=== PATIENT | male | born 1960 | race Caucasian/White ===

== ENCOUNTER 2016-09-14 03:35 | Inpatient (IN) | payer OTHER ==
[~2016-09-14] VITALS: Ht 180.3 cm; Wt 90.5 kg
[~2016-09-14 03:35] MED LIST: FURO20TA PO; IBUP-1542 PO; LEVE500T8 PO; LORA10TA3 PO
[2016-09-14] MEDS ORDERED: ONDANSETRON 4 MG INJ ONE (04:24)
[2016-09-14 04:34] LABS: BASOPHILS % 0.7 % (0.0-2.0); EOSINOPHILS # 0.1 10^3/ul (0.0-0.5); EOSINOPHILS % 1.6 % (0.0-7.0); HEMATOCRIT 40.1 % (42.0-52.0); HEMOGLOBIN 13.1 g/dl (14.0-18.0); LYMPHOCYTES # 1.8 10^3/ul (0.8-2.9); LYMPHOCYTES % 31.4 % (15.0-51.0); MEAN CORPUSCULAR HEMOGLOBIN 29.5 pg (29.0-33.0); MEAN CORPUSCULAR HGB CONC 32.8 g/dl (32.0-37.0); MEAN CORPUSCULAR VOLUME 90.1 fl (82.0-101.0); MEAN PLATELET VOLUME 8.7 fl (7.4-10.4); MONOCYTE # 0.5 10^3/ul (0.3-0.9); MONOCYTES % 8.8 % (0.0-11.0); NEUTROPHIL # 3.4 10^3/ul (1.6-7.5); NEUTROPHILS % 57.5 % (39.0-77.0); PLATELET COUNT 292 10^3/UL (140-440); RED BLOOD COUNT 4.45 10^6/ul (4.70-6.10); RED CELL DISTRIBUTION WIDTH 16.3 % (11.5-14.5); UNCORRECTED WBC 5.9 10^3/ul (4.8-10.8); WHITE BLOOD COUNT 5.9 10^3/ul (4.8-10.8)
[2016-09-14 04:41] LABS: CONDITION 1; LH ANALYZER COMMENTS 1
[2016-09-14 04:45] LABS: ALBUMIN 3.5 g/dl (3.3-4.9); POTASSIUM 3.4 mmol/L (3.5-5.1)
[2016-09-14 04:48] LABS: ALBUMIN/GLOBULIN RATIO 1.02; BILIRUBIN,INDIRECT 0.7 mg/dl (0-1.1); BILIRUBIN,TOTAL 0.7 mg/dl (0.2-1.3); CALCIUM 8.9 mg/dl (8.4-10.2); CREATININE 0.72 mg/dl (0.61-1.24); TOTAL PROTEIN 6.9 g/dl (6.1-8.1)
--- NOTE | 2016-09-14 04:51 | RADRPT ---
PROCEDURE: CHEST - 1 VIEW CLINICAL INDICATION: 56-year-old male with chest pain. TECHNIQUE: A single frontal AP view of the chest was performed portably. The images were reviewed on a PACS workstation. COMPARISON: Chest x-ray February 01, 2015. FINDINGS: There is a right-sided dual chamber pacemaker. The cardiomediastinal silhouette is moderately enlar ged but without significant interval change. There is mild pulmonary vascular congestion. There is a shallow inspiration. There is mild bibasilar subsegmental atelectasis. There is no evidence for an infiltrate. There is no evidence for pneumothorax. The osseous structures are intact. IMPRESSION: 1. Right-sided dual chamber pacemaker. 2. Cardiomegaly. 3. Mild pulmonary vascular congestion. 4. Shallow inspiration. 5. Mild bibasilar subsegmental atelectasis. .Chevy Horton MD, Date Time Electronically viewed and signed by .Chevy Horton MD, MD on 09/14/2016 04:51 .M/
[2016-09-14 05:00] LABS: TROPONIN-I 0.014 ng/ml (0.00-0.12)
[2016-09-14] MEDS ORDERED: ONDANSETRON 4 MG INJ IV STA (05:00)
[2016-09-14 05:12] LABS: INR 1.09; PROTIME 14.1 Sec (12.2-14.2); PT RATIO 1.1
[2016-09-14 05:13] LABS: PARTIAL THROMBOPLASTIN TIME 33.6 Sec (25.0-35.0)
--- NOTE | 2016-09-14 05:15 | ERA ---
ER Documentation Chief Complaint Date/Time DATE: 09/14/16 TIME: 05:13 Chief Complaint sudden onset CP10/10, 09/28 after ntg x1/asa 324, EMS ekg shows STEMI: HPI This is a 56-year-old male comes in with sudden onset of chest pain 10 out of 10. It went to 1 out of 10 after rescue given 1 sublingual nitro. EMS called with a STEMI P notification. Upon arrival field EKGs were reviewed and were noted not to be ST segment elevation myocardial infarctions. Repeat EKG showed no evidence of STEMI. Patient had chest pain is now 1 out of 10. ROS All systems reviewed and are negative except as per history of present illness. Medications Home Meds Active Scripts Loratadine* (Loratadine*) 10 Mg Tablet, 10 MG PO DAILY for NASAL CONGESTION, # 12 TAB Prov:BALTAZAR SENIOR MD 02/02/16 Ibuprofen* (Motrin*) 600 Mg Tab, 600 MG PO TID for PAIN, #30 TAB Prov:BALTAZAR SENIOR MD 02/02/16 Furosemide* (Lasix*) 20 Mg Tablet, 20 MG PO DAILY, #20 TAB Prov:BALTAZAR SENIOR MD 02/02/16 Reported Medications Levetiracetam* (Levetiracetam*) 500 Mg Tablet, 500 MG PO BID, TAB 07/15/15 Furosemide* (Lasix*) 20 Mg Tablet, 20 MG PO DAILY, TAB 01/31/15 Allergies Allergies: Coded Allergies: Penicillins (Verified Allergy, Mild, 01/07/16) PMhx/Soc History of Surgery: Yes (PACEMAKER) Anesthesia Reaction: No Hx Neurological Disorder: Yes (stroke left sided paralysis) Hx Respiratory Disorders: No Hx Psychiatric Problems: No Hx Miscellaneous Medical Probl: Yes (PARALYZED FROM L WAIST DOWN) Hx Alcohol Use: No Hx Substance Use: No Hx Tobacco Use: No Smoking Status: Unknown if ever smoked Physical Exam Vitals Vital Signs Date Time Temp Pulse Resp B/P Pulse Ox O2 Delivery O2 Flow Rate FiO2 09/14/16 03:55 83 18 135/114 96 Nasal Cannula 2.0 09/14/16 03:41 95.8 77 19 151/115 99 09/14/16 03:40 Nasal Cannula 2 Physical Exam Const: [] Head: Atraumatic Eyes: Normal Conjunctiva ENT: Normal External Ears, Nose and Mouth. Neck: Full range of motion..~ No meningismus. Resp: Clear to auscultation bilaterally Cardio: Regular rate and rhythm, no murmurs Abd: Soft, non tender, non distended. Normal bowel sounds Skin: No petechiae or rashes Back: No midline or flank tenderness Ext: No cyanosis, or edema Neur: Awake and alert Psych: Normal Mood and Affect Result Diagram: 09/14/16 0340 09/14/16 0340 Results 24 hrs Laboratory Tests Test 09/14/16 03:40 Activated Partial Thromboplast Time Pending Alanine Aminotransferase (ALT/SGPT) 35IU/L Albumin 3.5g/dl Albumin/Globulin Ratio 1.02 Alkaline Phosphatase 102IU/L Anion Gap 15 Aspartate Amino Transf (AST/SGOT) 28IU/L B-Type Natriuretic Peptide 2380PG/ML Basophils # 0.010^3/ul Basophils % 0.7% Blood Morphology Comment Blood Urea Nitrogen 9mg/dl Calcium Level 8.9mg/dl Carbon Dioxide Level 28mmol/L Chloride Level 104mmol/L Creatinine 0.72mg/dl Direct Bilirubin 0.00mg/dl Eosinophils # 0.110^3/ul Eosinophils % 1.6% Globulin 3.40g/dl Glucose Level 85mg/dl Hematocrit 40.1% Hemoglobin 13.1g/dl INR International Normalized Ratio 1.09 Indirect Bilirubin 0.7mg/dl Lymphocytes # 1.810^3/ul Lymphocytes % 31.4% Mean Corpuscular Hemoglobin 29.5pg Mean Corpuscular Hemoglobin Concent 32.8g/dl Mean Corpuscular Volume 90.1fl Mean Platelet Volume 8.7fl Monocytes # 0.510^3/ul Monocytes % 8.8% Neutrophils # 3.410^3/ul Neutrophils % 57.5% Nucleated Red Blood Cells # 0.010^3/ul Nucleated Red Blood Cells % 0.0/100WBC Platelet Count 39175^3/UL Potassium Level 3.4mmol/L Prothrombin Time 14.1Sec Prothrombin Time Ratio 1.1 Red Blood Count 4.4510^6/ul Red Cell Distribution Width 16.3% Sodium Level 144mmol/L Total Bilirubin 0.7mg/dl Total Protein 6.9g/dl Troponin I 0.014ng/ml White Blood Count 5.910^3/ul Current Medications Medications (Trade) Dose Ordered Sig/Lindsey Route PRN Reason Start Time Stop Time Status Last Admin Dose Admin Ondansetron HCl (Zofran Inj) 4 mg STK-MED ONCE .ROUTE 09/14/16 04:24 09/14/16 04:25 DC Ondansetron HCl (Zofran Inj) 4 mg ONCE STAT IV 09/14/16 05:00 09/14/16 05:03 DC 09/14/16 04:25 Procedures/MDM EKG: Rate/Rhythm: Normal Sinus Rhythm QRS, ST, T-waves: No changes consistent w/ acute ischemia Impression: No evidence of ischemia or arrhythmia Chest X-ray 1V Interpreted by me: Soft Tissue: No acute abnormalities Bones: No acute abnormalities Mediastinum/Cardiac Silhouette/Lungs: Pulmonary edema Patient's symptoms are concerning for cardiac cause will require inpatient workup and continuous monitoring. Further w/u for ischemia, arrhythmia, PE or dissection will be deferred to the inpatient team. Accepting Care Team: Current data and ongoing care discussed. Time: 5:15 AM Primary Provider: Hospitalist Consulting: [XOXOXO] Outstanding Data: none Departure Diagnosis: Primary Impression: Chest pain Qualified Code: I20.9 - Ischemic chest pain Condition: Serious BONIFACIO PEREZ Sep 14, 2016 05:15
[2016-09-14] MEDS ORDERED: FUROSEMIDE 40 MG INJ IV ONE (05:30)
[2016-09-14] MEDS ORDERED: DICLOFENAC SODIUM 37.5 MG/ML VIAL IV STA (05:46)
[2016-09-14] MEDS ORDERED: POTA20LI5 PO (06:43)
[2016-09-14] MEDS ORDERED: WARF2.5T PO (06:43)
[2016-09-14] MEDS ORDERED: DILT120C79 PO (06:45)
[2016-09-14] MEDS ORDERED: LOSA25TA5 PO (06:46)
[2016-09-14] MEDS ORDERED: HYDROCODONE/APAP (5/325) TAB PO PRN (08:00)
[2016-09-14] MEDS ORDERED: ONDANSETRON 4 MG INJ IV PRN (08:00)
[2016-09-14] MEDS ORDERED: DILTIAZEM (CD) 180 MG CAP PO SCH (09:00)
[2016-09-14] MEDS ORDERED: POTASSIUM CHLORIDE 250 ML IVPB ONE (09:00)
[2016-09-14] MEDS: LOSARTAN 25 MG TAB PO SCH (09:39)
[2016-09-14] MEDS: DOCUSATE SODIUM 100 MG CAP PO SCH ×2 (09:40→22:28)
[2016-09-14] MEDS: LEVETIRACETAM 500 MG TAB PO SCH ×2 (09:40→22:28)
[2016-09-14] MEDS: FUROSEMIDE 20 MG INJ IV SCH (09:40)
[2016-09-14] MEDS: POTASSIUM CHLORIDE (SR) 20 MEQ TAB PO SCH (09:41)
[2016-09-14 11:12] LABS: ALBUMIN 3.6 g/dl (3.3-4.9)
[2016-09-14 11:15] LABS: BILIRUBIN,INDIRECT 0.9 mg/dl (0-1.1); BILIRUBIN,TOTAL 0.9 mg/dl (0.2-1.3); MAGNESIUM 1.9 mg/dl (1.7-2.5); TOTAL PROTEIN 6.8 g/dl (6.1-8.1)
[2016-09-14 11:30] LABS: CK-MB 27.1 ng/ml (0.0-2.4)
[2016-09-14 11:31] LABS: TROPONIN-I 1.09 ng/ml (0.00-0.12)
[2016-09-14 15:35] LABS: THYROID STIMULATING HORMONE 3.92 MIU/L (0.465-4.680)
[2016-09-14] MEDS ORDERED: ASPIRIN 325 MG TAB PO ONE (16:00)
--- NOTE | 2016-09-14 16:24 | CONS ---
Date/Time of Note Date/Time of Note DATE: 09/14/16 TIME: 16:02 Assessment/Plan Assessment/Plan Additional Assessment/Plan Elevated troponin concerning for non-ST elevation WA History of congestive heart failure, currently compensated Cardiomyopathy Atrial fibrillation, noncompliant with anticoagulation CVA with left hemiparesis -Patient with symptoms of chest discomfort yesterday evening after dinner. He denies further chest pain. Troponins are elevated. This was discussed with the patient in detail and he tells me he had a recent cardiac catheterization done earlier this year. Extensive discussion was had with the patient regarding benefits and risks of coronary angiogram and patient is currently refusing any invasive procedures. I will request records from [facility] regarding recent coronary angiogram, will start aspirin therapy, statin therapy, beta iraida, check echocardiogram, Lovenox in the interim. Consultation Date/Type/Reason Admit Date/Time Type of Consultation: cv Reason for Consultation Chest pain Hx of Present Illness This is a 56-year-old male with past medical history of congestive heart failure , hypertension, CVA with left hemiparesis, atrial fibrillation who presents with chest pain last night. Patient states after eating spicy food, he developed burning-like sensation in his chest and throat. There was no shortness of breath, dizziness or lightheadedness. After taking soda today, his chest pain has since resolved. He denies any further symptoms. He does admit to poor medication and diet compliance. Patient was homeless but recently given a place to stay but does admit to noncompliance with medications and diet. He does admit to drug use but does not remember the last time he used. He has used cocaine, methamphetamines and marijuana in the past. Given his CVA and left hemiparesis, he does not ambulate but gets around with able chair. He denies exertional chest pain or shortness of breath. Tells me he did have a cardiac catheterization done earlier this year at [facility]. He was told there were no blockages but he had large arteries. 12 point review of systems was performed with all pertinent positives and negatives mentioned above and all else is negative Past Medical History Congestive heart failure Atrial fibrillation CVA with left hemiparesis Past Surgical History Pacemaker Family History Significant Family History: no pertinent family hx Social History Alcohol Use: occasionally Smoking Status: Unknown if ever smoked Drug Use: other (history of methamphetamine, crack and marijuana use) Exam/Review of Systems Vital Signs Vitals Vital Signs Date Time Temp Pulse Resp B/P Pulse Ox O2 Delivery O2 Flow Rate FiO2 09/14/16 13:50 20 133/99 99 Nasal Cannula 2.0 09/14/16 09:38 93 09/14/16 03:41 95.8 Exam Constitutional: alert, oriented Head: normocephalic Neck: supple Respiratory: other (course breath sounds bilaterally, no wheezing) Cardiovascular: irregular rhythm, other (S1-S2 heard) Gastrointestinal: bowel sounds, non-tender, other (no guarding), soft Extremities: edema (trace left lower extremity), other (contracture of left upper extremity) Results Result Diagram: 09/14/16 0340 09/14/16 0340 Results 24 hrs Laboratory Tests Test 09/14/16 03:40 09/14/16 09:57 Activated Partial Thromboplast Time 33.6 Alanine Aminotransferase (ALT/SGPT) 35 33 Albumin 3.5 3.6 Albumin/Globulin Ratio 1.02 Alkaline Phosphatase 102 98 Anion Gap 15 Aspartate Amino Transf (AST/SGOT) 28 60 #H B-Type Natriuretic Peptide 2380 H Basophils # 0.0 Basophils % 0.7 Blood Morphology Comment Blood Urea Nitrogen 9 Calcium Level 8.9 Carbon Dioxide Level 28 Chloride Level 104 Creatinine 0.72 Direct Bilirubin 0.00 0.00 Eosinophils # 0.1 Eosinophils % 1.6 Globulin 3.40 H Glucose Level 85 Hematocrit 40.1 L Hemoglobin 13.1 L INR International Normalized Ratio 1.09 Indirect Bilirubin 0.7 0.9 Lymphocytes # 1.8 Lymphocytes % 31.4 Mean Corpuscular Hemoglobin 29.5 Mean Corpuscular Hemoglobin Concent 32.8 Mean Corpuscular Volume 90.1 Mean Platelet Volume 8.7 Monocytes # 0.5 Monocytes % 8.8 Neutrophils # 3.4 Neutrophils % 57.5 Nucleated Red Blood Cells # 0.0 Nucleated Red Blood Cells % 0.0 Platelet Count 292 # Potassium Level 3.4 L Prothrombin Time 14.1 Prothrombin Time Ratio 1.1 Red Blood Count 4.45 L Red Cell Distribution Width 16.3 #H Sodium Level 144 Total Bilirubin 0.7 0.9 Total Protein 6.9 6.8 Troponin I 0.014 1.090 *H White Blood Count 5.9 Cholesterol Level 140 Cholesterol/HDL Ratio 4.0 Creatine Kinase 174 Creatine Kinase Index 15.6 Creatinine Kinase MB (Mass) 27.10 H HDL Cholesterol 35 LDL Cholesterol, Calculated 96 Magnesium Level 1.9 Thyroid Stimulating Hormone (TSH) 3.920 Triglycerides Level 47 Medications Medications Current Medications Levetiracetam (Keppra) 500 mg BID PO Last administered on 09/14/16 09:40; Admin Dose 500 MG; Start 09/14/16 at 09:00 Potassium Chloride (Klor-Con 20) 20 meq DAILY PO Last administered on 09:41; Admin Dose 20 MEQ; Start 09/14/16 at 09:00 Diltiazem HCl (Cardizem Cd) 180 mg DAILY PO Last administered on 09/14/16 09: 40; Admin Dose 180 MG; Start 09/14/16 at 09:00 Losartan Potassium (Cozaar) 25 mg DAILY PO Last administered on 09/14/16 09: 39; Admin Dose 25 MG; Start 09/14/16 at 09:00 Furosemide (Lasix) 20 mg DAILY IV Last administered on 09/14/16 09:40; Admin Dose 20 MG; Start 09/14/16 at 09:00 Docusate Sodium (Colace) 100 mg BID PO Last administered on 09/14/16 09:40; Admin Dose 100 MG; Start 09/14/16 at 09:00 Ondansetron HCl (Zofran Inj) 4 mg Q6H PRN IV NAUSEA AND/OR VOMITING; Start at 08:00 Acetaminophen/ Hydrocodone Bitart ([place] (5/325)) 1 tab Q6H PRN PO pain; Start 09/14/16 at 08:00 Procedures Procedures ECG demonstrates atrial fibrillation at 87 bpm, right bundle branch block with QRS 166 ms, nonspecific STT wave abnormalities Louis Montalvo DO Sep 14, 2016 16:13
--- NOTE | 2016-09-14 16:50 | RADRPT ---
Echocardiogram Report Patient Name: BALTAZAR HENRIQUEZ Gender: Male Date: 1960 Study Date: 14-Sep-2016 [place] Dyer: Bobbi Correia RDCS Location: [facility] Ref. Physician: JEAN-PAUL ZAMUDIO Quality: Adequate Procedures: Transthoracic echocardiogram with complete 2D, M-Mode, and doppler examination. Indications: Congestive Heart Failure. 2D/M Mode Doppler Measurement Value Normal Ranges Measurement Value Normal Ranges LVIDd 2D 6.1 3.5 - 5.6 cm AV Peak Kevin 1.1 m/sec LVIDs 2D 4.8 2.1 - 4.1 cm AV Peak PG 5.0 mmHg FS 2D 21.5 % AI Peak PG 74.0 mmHg LVPWd 2D 1.2 0.6 - 1.1 cm AI Peak Kevin 4.3 m/sec IVSd 2D 1.2 0.6 - 1.1 cm AI PHT 518.0 msec IVS/LVPW 2D 1.0 LVOT Peak Kevin 0.7 m/sec AoR Diam 2D 3.1 2.0 - 3.7 cm LVOT Peak PG 2.0 mmHg LA/Ao 2D 2 0 - 1 MV E Peak Kevin 1.1 m/sec EDV 2D 223.0 cm3 MV Decel Time 92 msec ESV 2D 108.0 cm3 TR Peak Kevin 3.5 m/sec LA Dimen 2D 5.8 2.3 - 4.0 cm TR Peak PG 48.0 mmHg RVSP 63.0 mmHg Findings Left Ventricle: Mild concentric left ventricular hypertrophy. Mild enlargement of left ventricle cavity. Severe left ventricular systolic dysfunction. Ejection fraction is visually estimated at 30 %. Abnormal Diastolic Function. Right Ventricle: Mild enlargement of right ventricle. Mild right ventricular hypokinesis. Pacemaker right heart. Left Atrium: There is severe enlargement of left atrium. LA Dimension5.80 cm. Right Atrium: There is severe enlargement of right atrium. Mitral Valve: Mitral valve leaflets appear mildly thickened. Mild mitral annular calcification. Moderate mitral valve regurgitation. The regurgitation jet is eccentrically directed which may underestimate the severity of mitral regurgitation. Aortic Valve: No hemodynamically significant aortic stenosis by doppler. Aortic cusps appear mildly calcified. Trace aortic valve regurgitation. Tricuspid Valve: Normal appearance of the tricuspid valve. Estimated peak PA systolic pressure 63 mmHg. There is moderate tricuspid regurgitation. Pulmonic Valve: Normal pulmonic valve appearance. Pericardium: Normal pericardium with no significant pericardial effusion. Aorta: Normal aortic root. IVC: Dilated inferior vena cava with poor inspiratory collapse consistent with elevated right atrial pressures. Pulmonary Artery: Normal pulmonary artery size. Conclusions 1.Mild concentric left ventricular hypertrophy. Mild enlargement of left ventricle cavity. Severe left ventricular systolic dysfunction. Ejection fraction is visually estimated at 30 %. Abnormal Diastolic Function. 2.Mild enlargement of right ventricle. Mild right ventricular hypokinesis. Pacemaker right heart. 3.There is severe enlargement of left atrium. 4.There is severe enlargement of right atrium. 5.Moderate mitral valve regurgitation. The regurgitation jet is eccentrically directed which may underestimate the severity of mitral regurgitation. 6.Estimated peak PA systolic pressure 63 mmHg. There is moderate tricuspid regurgitation. 7.No hemodynamically significant aortic stenosis by doppler. Trace aortic valve regurgitation. 8.Normal pericardium with no significant pericardial effusion. Electronically Signed By: Louis Montalvo 14-Sep-2016 16:50:41 -0800 Patient Name: BALTAZAR HENRIQUEZ Study Date: 14-Sep-2016 [id number]
[2016-09-14] MEDS ORDERED: WARFARIN 2.5 MG TAB PO SCH (17:00)
[2016-09-14 17:04] LABS: CK-MB 78.9 ng/ml (0.0-2.4)
[2016-09-14 17:11] LABS: TROPONIN-I 5.78 ng/ml (0.00-0.12)
--- NOTE | 2016-09-14 17:16 | HP ---
DATE OF ADMISSION: 09/14/2016 MATCH MARKER: Dr. Louis Montalvo, dowel inserting machine operator. CHIEF COMPLAINT: Chest pain. HISTORY OF PRESENT ILLNESS: This is a very pleasant 56-year-old gentleman with past medical history of hypertension, dyslipidemia, CVA with left-sided residual, seizure, atrial fibrillation who prese nts to [facility] this morning on 09/14/2016 secondary to complaint of having ches t discomfort. The chest pain was left-sided, radiating to his left upper extremity, not accompanied with any shortness of breath or any other discomfort. The patient denies any recent travel history . No sick contact. The pain was sudden onset, 10/10. He took 1 sublingual nitroglycerin. EMS was called. STEMI was found on the EKG, although upon arrival to the field, EKG was reviewed, and were not noted to be ST segment elevation myocardial infarction per dowel inserting machine operator. The chest pain improv ed significantly status post aspirin and nitroglycerin. The patient's first troponin was found to b e 0.14 and increased to 1.090. The patient was seen and evaluated in the course of emergency room b y the dowel inserting machine operator and elevated troponin was discussed with the patient in detail, although he state s that he had a recent cardiac catheterization done earlier this year. An extensive discussion was done by cardiology regarding benefits and risks of coronary angiogram. The patient at this time is refusing current invasive procedure. The patient has been started on aspirin, statin, beta-iraida. An echocardiogram has been ordered. At this time, the patient denies any chest pain, shortness of breath, nausea, vomiting, diarrhea. No headache, dizziness, lightheadedness. No change in visual acuity, diplopia, photophobia. No abdominal pain, no other discomfort except what was stated above. PAST MEDICAL AND SURGICAL HISTORY: As above per HPI. MEDICATIONS: 1. Diltiazem. 2. Lasix. 3. Keppra. 4. Losartan. 5. Potassium chloride. 6. Warfarin. ALLERGIES: PENICILLIN. SOCIAL HISTORY: History of smoking, he has quit. No alcohol, no illicit drugs. He lives alone. H e is not dependent to others for his daily activity. FAMILY HISTORY: Positive for hypertension, dyslipidemia. REVIEW OF SYSTEMS: As above per HPI, otherwise 12 review of systems was found to be negative. PHYSICAL EXAMINATION: VITAL SIGNS: Temperature 98.5, pulse 93, respirations 20, blood pressure 133/99, oxygen 99% in room air. GENERAL APPEARANCE: The patient is lying in bed comfortably without any distress. He is awake, alla rt, oriented. He is able to answer my questions properly. EYES AND EARS, NOSE, THROAT: Conjunctivae and lids are normal. Pupils are normal. Extraocular nor mal. Hearing grossly normal. Lips are normal. Oral mucosa is mildly dry. NECK: Supple. Trachea is midline. No lymphadenopathy. RESPIRATORY: Effort is normal. Clear to auscultation bilaterally. CARDIOVASCULAR: Normal S1, S2. Regular rhythm and rate. No murmur, no bruits, no edema. Peripher al pulses, radial pulses palpable. Cap refill is normal. CHEST: Normal expansion of thorax during inspiration. GASTROINTESTINAL: Abdomen is soft, nontender, not distended. Bowel sounds present. No guarding, n o rebound. GENITOURINARY: Deferred. MUSCULOSKELETAL: Left upper extremity at the wrist is flexed secondary to his history of CVA. Left lower extremity is weaker than right. Otherwise, no other deformity is noted. No edema. NEUROLOGIC: Cranial nerves II through XII are grossly intact. PSYCHIATRIC: Normal judgment and insight. Alert and oriented x3. Mood and affect is normal. LABORATORY WORK AND IMAGING: Sodium 144, potassium 3.4, chloride 104, bicarbonate 28, BUN 9, creati nine 0.72, glucose 85, calcium 8.9, magnesium 1.9. LFTs are within normal limits except AST 60. Tr oponin 0.014 and 1.090. BNP 2380. Triglyceride 47, total cholesterol 140, LDL 96, HDL 35. TSH 3.9 2. WBC 5.9, hemoglobin 13.1, hematocrit 41.0, platelet 292. EKG demonstrated atrial fibrillation, ventricular rate of 87, right bundle branch block with QRS, nonspecific ST-T wave abnormality. ASSESSMENT AND PLAN: 1. Non-ST myocardial infarction. Troponin 1.03. Cardiology has been consulted. Obtain a 2D echoc ardiogram. The patient has been placed on aspirin, warfarin. Will place the patient on Lipitor, Lo venox, metoprolol. Follow up serial troponin. At this time, as stated above, the patient has refus ed any cardiac procedure. 2. Essential hypertension, well controlled on medical management. 3. History of cerebrovascular accident. Continue aspirin. Place the patient on statin. Continue to monitor patient's blood pressure. 4. History of atrial fibrillation. Continue Lopressor. The patient has been placed on Lovenox. A t this time, we will hold warfarin. 5. Seizure disorder. No acute event. Continue Keppra. 6. Congestive heart failure. Continue Lasix, Losartan. Seems compensated. Follow up 2D echocardi ogram. 7. For deep venous thrombosis prophylaxis, on Lovenox. 8. For gastrointestinal prophylaxis, we will place the patient on Protonix. 9. We will continue to monitor patient closely. Further recommendations, management, and treatment as per clinical course. Total amount of time was spent for evaluation of patient and admission workup 45 minutes. Dictated By: AVERY CAMPO MD PN/NTS Conf#: [id number] DID#: [id number] CC: ____ [facility];*EndCC*
[2016-09-14] MEDS ORDERED: ENOXAPARIN 80 MG/0.8 ML SYG SC ONE (19:30)
[2016-09-14] MEDS: METOPROLOL 25 MG TAB PO SCH (21:00)
[2016-09-14] MEDS ORDERED: ENOXAPARIN 80 MG/0.8 ML SYG SC SCH (21:00)
[2016-09-14 21:08] VITALS: PULSE 76
[2016-09-14] MEDS: ATORVASTATIN 40 MG TAB PO SCH (22:26)
[2016-09-14 22:27] LABS: TROPONIN-I 11.7 ng/ml (0.00-0.12)
[2016-09-14 23:10] VITALS: BP 115/98; RESP 18
[2016-09-14 23:15] VITALS: Ht 180.3 cm; Wt 90.5 kg
[2016-09-14 23:48] VITALS: PULSE 103
[2016-09-15] VITALS (40 sets, daily range): BP systolic 85–130; BP diastolic 61–103; PULSE 60–78; RESP 14–23
[2016-09-15] MEDS: PANTOPRAZOLE (EC) 40 MG TAB PO SCH (06:31)
[2016-09-15 08:47] LABS: BARBITURATES NEGATIVE (NEGATIVE); BENZODIAZEPINES NEGATIVE (NEGATIVE)
[2016-09-15 08:48] LABS: CANNABINOIDS NEGATIVE (NEGATIVE); COCAINE NEGATIVE (NEGATIVE); OPIATES NEGATIVE (NEGATIVE)
[2016-09-15] MEDS: FUROSEMIDE 20 MG INJ IV SCH (09:00)
[2016-09-15] MEDS: LOSARTAN 25 MG TAB PO SCH (09:00)
[2016-09-15] MEDS: METOPROLOL 25 MG TAB PO SCH (09:00)
[2016-09-15] MEDS ORDERED: AL HYDROX/MG HYDROX/SIMETH 30 ML CUP PO PRN (10:00)
[2016-09-15] MEDS: POTASSIUM CHLORIDE (SR) 20 MEQ TAB PO SCH (10:08)
[2016-09-15] MEDS: ASPIRIN 81 MG TAB PO SCH (10:08)
[2016-09-15] MEDS: DOCUSATE SODIUM 100 MG CAP PO SCH (10:08)
[2016-09-15] MEDS: LEVETIRACETAM 500 MG TAB PO SCH (10:08)
--- NOTE | 2016-09-15 11:59 | PN ---
Date/Time of Note Date/Time of Note DATE: 09/15/16 TIME: 11:50 Assessment/Plan VTE Prophylaxis VTE Prophylaxis Intervention: LMWH Lines/Catheters IV Catheter Type (from [facility]): [place] Assessment/Plan Chief Complaint/Hosp Course ASSESSMENT AND PLAN: 1. Non-ST myocardial infarction. Cardiology has been consulted. 2D echocardiogram demonstrated ejection fraction of 30% with diastolic dysfunction. The patient has been placed on aspirin, Lovenox and Lipitor. Metoprolol has been placed on hold secondary to hypotension. serial troponin has been trending up. At this time, as stated above, the patient has refused any cardiac procedure such as left heart catheterization and PCI. 2. Essential hypertension, at this time patient is hypotensive, we will place parameters for blood pressure medications 3. History of cerebrovascular accident. Continue aspirin and statin. Continue to monitor patient's blood pressure. 4. History of atrial fibrillation. Hold Lopressor. Status post Lovenox. At this time, we will hold warfarin. 5. Seizure disorder. No acute event. Continue Keppra. 6. Congestive heart failure. 2D echocardiogram with ejection fraction 30%, losartan and Lasix with caution secondary to hypotension. 7. For deep venous thrombosis prophylaxis, on Lovenox. 8. For gastrointestinal prophylaxis, we will place the patient on Protonix. . We will continue to monitor patient closely. Further recommendations, management, and treatment as per clinical course. Patient has decided to change his CODE STATUS to DNR. Nurse was witnessed during the process At this time patient has refused any cardiac interventions such as left heart cath or PCI, will continue aggressive medical management and follow cardiology recommendations Problems: Subjective 24 Hr Interval Summary Free Text/Dictation Patient complains of having abdominal discomfort this morning which has resolved Denies of any chest pain or shortness of breath Yesterday evening upon evaluation of troponin patient had refused left heart catheterization despite of cardiology recommendations This morning also patient has refused left heart catheterization and at this time he stating that he would not like to proceed with PCI NPO for possible left heart catheterization Exam/Review of Systems Vital Signs Vitals Vital Signs Date Time Temp Pulse Resp B/P Pulse Ox O2 Delivery O2 Flow Rate FiO2 09/15/16 09:25 61 09/15/16 07:35 97.9 20 85/61 98 09/14/16 16:00 Nasal Cannula 2.0 Intake and Output 09/14/16 09/14/16 09/15/16 15:00 23:00 07:00 Intake Total 500 ml Output Total 1300 ml 300 ml Balance -1300 ml 200 ml Exam General: The patient is well-developed, Not in acute distress. HEENT: Atraumatic, normocephalic. The pupils are equal and round . Neck: Supple with full range of motion. Chest: Normal expansion of the thorax during inspiration Lungs: Clear to auscultation bilaterally Heart: Normal S1-S2, Regular rhythm and rate. Abdomen: Soft , nontender, nondistended , bowel sounds are present. Extremities: Left hand flexion/deformity, left upper and lower extremity weakness 3/5 (chronic) , no edema no cyanosis Neurologic: Normal mental status,The patient is awake, alert and oriented . Results Result Diagram: 09/14/16 0340 09/14/16 0340 Results 24 hrs Laboratory Tests Test 09/14/16 16:20 09/14/16 21:44 09/15/16 06:30 Creatine Kinase 507 #H 655 H Creatine Kinase Index 15.6 14.7 Creatinine Kinase MB (Mass) 78.90 H 96.00 H Troponin I 5.780 *H 11.700 *H Urine Amphetamines Screen POSITIVE Urine Barbiturates NEGATIVE Urine Benzodiazepines Screen NEGATIVE Urine Cannabinoids NEGATIVE Urine Cocaine Screen NEGATIVE Urine Opiates Screen NEGATIVE Medications Medications Current Medications Levetiracetam (Keppra) 500 mg BID PO Last administered on 09/15/16at 10:08; Admin Dose 500 MG; Start 09/14/16 at 09:00 Potassium Chloride (Klor-Con 20) 20 meq DAILY PO Last administered on at 10:08; Admin Dose 20 MEQ; Start 09/14/16 at 09:00 Losartan Potassium (Cozaar) 25 mg DAILY PO Last administered on 09/14/16at 09: 39; Admin Dose 25 MG; Start 09/14/16 at 09:00 Furosemide (Lasix) 20 mg DAILY IV Last administered on 09/14/16at 09:40; Admin Dose 20 MG; Start 09/14/16 at 09:00 Docusate Sodium (Colace) 100 mg BID PO Last administered on 09/15/16at 10:08; Admin Dose 100 MG; Start 09/14/16 at 09:00 Ondansetron HCl (Zofran Inj) 4 mg Q6H PRN IV NAUSEA AND/OR VOMITING; Start at 08:00 Acetaminophen/ Hydrocodone Bitart ([place] (5/325)) 1 tab Q6H PRN PO pain; Start 09/14/16 at 08:00 Atorvastatin Calcium (Lipitor) 40 mg HS PO Last administered on 09/14/16at 22: 26; Admin Dose 40 MG; Start 09/14/16 at 21:00 Aspirin (Aspirin) 81 mg DAILY PO Last administered on 09/15/16at 10:08; Admin Dose 81 MG; Start 09/15/16 at 09:00 Metoprolol Tartrate (Lopressor) 25 mg BID PO Last administered on 09/14/16 21 :00; Admin Dose 25 MG; Start 09/14/16 at 21:00 Pantoprazole (Protonix Tab) 40 mg DAILY@06 PO Last administered on 09/15/16 06:31; Admin Dose 40 MG; Start 09/15/16 at 06:00 Al Hydrox/Mg Hydrox/Simethicone (Mag-Al Plus) 30 ml Q6H PRN PO GASTROINTESTINAL UPSET Last administered on 09/15/16at 10:07; Admin Dose 30 ML; Start 09/15/16 at 10:00 AVERY CAMPO MD Sep 15, 2016 11:59
[2016-09-15 12:14] LABS: BASOPHILS % 0.5 % (0.0-2.0); EOSINOPHILS # 0.1 10^3/ul (0.0-0.5); EOSINOPHILS % 1.1 % (0.0-7.0); HEMATOCRIT 38.6 % (42.0-52.0); HEMOGLOBIN 12.6 g/dl (14.0-18.0); LYMPHOCYTES # 1.1 10^3/ul (0.8-2.9); LYMPHOCYTES % 17.6 % (15.0-51.0); MEAN CORPUSCULAR HEMOGLOBIN 29.6 pg (29.0-33.0); MEAN CORPUSCULAR HGB CONC 32.8 g/dl (32.0-37.0); MEAN CORPUSCULAR VOLUME 90.2 fl (82.0-101.0); MEAN PLATELET VOLUME 8.3 fl (7.4-10.4); MONOCYTE # 0.6 10^3/ul (0.3-0.9); MONOCYTES % 9.7 % (0.0-11.0); NEUTROPHIL # 4.5 10^3/ul (1.6-7.5); NEUTROPHILS % 71.1 % (39.0-77.0); PLATELET COUNT 271 10^3/UL (140-440); RED BLOOD COUNT 4.28 10^6/ul (4.70-6.10); RED CELL DISTRIBUTION WIDTH 16.4 % (11.5-14.5); UNCORRECTED WBC 6.4 10^3/ul (4.8-10.8); WHITE BLOOD COUNT 6.4 10^3/ul (4.8-10.8)
[2016-09-15 12:19] LABS: CONDITION 1; LH ANALYZER COMMENTS 1
[2016-09-15 12:22] LABS: POTASSIUM 3.8 mmol/L (3.5-5.1)
[2016-09-15 12:24] LABS: CREATININE 0.79 mg/dl (0.61-1.24)
[2016-09-15 12:26] LABS: CALCIUM 8.8 mg/dl (8.4-10.2)
[2016-09-15 12:39] LABS: TROPONIN-I 33.9 ng/ml (0.00-0.12)
--- NOTE | 2016-09-15 12:56 | CONS ---
Date/Time of Note Date/Time of Note DATE: 09/15/16 TIME: 12:51 Assessment/Plan Assessment/Plan Additional Assessment/Plan Non-ST elevation CT History of congestive heart failure, currently compensated Cardiomyopathy with ejection fraction 30% Atrial fibrillation, noncompliant with anticoagulation History of CVA with left hemiparesis Methamphetamine use -I have had multiple conversations with her patient regarding his cardiac disease. Initially patient was refusing cardiac catheterization, troponins continue to trend up, he agreed last night for cardiac catheterization and he was scheduled for 7:30 this morning and then refused prior to the procedure. Troponins continue to trend upwards. Once again, this was discussed with the patient and he currently agrees to proceed with cardiac catheterization. Continue aspirin, statin therapy and beta iraida as blood pressure and heart rate permits. Further recommendations will be forthcoming as more information is available. Consultation Date/Type/Reason Admit Date/Time Sep 14, 2016 at 05:16 Initial Consult Date Type of Consultation: cv 24 HR Interval Summary Free Text/Dictation Patient with intermittent "indigestion" overnight. Currently denies chest pain or shortness of breath Exam/Review of Systems Vital Signs Vitals Vital Signs Date Time Temp Pulse Resp B/P Pulse Ox O2 Delivery O2 Flow Rate FiO2 09/15/16 12:28 60 09/15/16 12:12 97.8 20 101/65 98 09/14/16 16:00 Nasal Cannula 2.0 Intake and Output 09/14/16 09/14/16 09/15/16 15:00 23:00 07:00 Intake Total 500 ml Output Total 1300 ml 300 ml Balance -1300 ml 200 ml Exam No apparent distress, follows commands Constitutional: alert, oriented Head: normocephalic Neck: supple Respiratory: other (course breath sounds bilaterally, no wheezing) Cardiovascular: irregular rhythm, other (S1-S2 heard), systolic murmur Gastrointestinal: bowel sounds, non-tender, other (no guarding), soft Extremities: other (contracture of left arm, trace edema left lower extremity) Results Result Diagram: 09/15/16 1150 09/15/16 1150 Results 24 hrs Laboratory Tests Test 09/14/16 16:20 09/14/16 21:44 09/15/16 06:30 09/15/16 11:50 Creatine Kinase 507 #H 655 H 598 H Creatine Kinase Index 15.6 14.7 11.5 Creatinine Kinase MB (Mass) 78.90 H 96.00 H 69.00 H Troponin I 5.780 *H 11.700 *H 33.900 *H Urine Amphetamines Screen POSITIVE Urine Barbiturates NEGATIVE Urine Benzodiazepines Screen NEGATIVE Urine Cannabinoids NEGATIVE Urine Cocaine Screen NEGATIVE Urine Opiates Screen NEGATIVE Anion Gap 13 Basophils # 0.0 Basophils % 0.5 Blood Morphology Comment Blood Urea Nitrogen 10 Calcium Level 8.8 Carbon Dioxide Level 31 Chloride Level 100 Creatinine 0.79 Eosinophils # 0.1 Eosinophils % 1.1 Glucose Level 82 Hematocrit 38.6 L Hemoglobin 12.6 L Lymphocytes # 1.1 Lymphocytes % 17.6 Mean Corpuscular Hemoglobin 29.6 Mean Corpuscular Hemoglobin Concent 32.8 Mean Corpuscular Volume 90.2 Mean Platelet Volume 8.3 Monocytes # 0.6 Monocytes % 9.7 Neutrophils # 4.5 Neutrophils % 71.1 Nucleated Red Blood Cells # 0.0 Nucleated Red Blood Cells % 0.0 Platelet Count 271 Potassium Level 3.8 Red Blood Count 4.28 L Red Cell Distribution Width 16.4 H Sodium Level 140 White Blood Count 6.4 Medications Medications Current Medications Levetiracetam (Keppra) 500 mg BID PO Last administered on 09/15/16 10:08; Admin Dose 500 MG; Start 09/14/16 at 09:00 Potassium Chloride (Klor-Con 20) 20 meq DAILY PO Last administered on 10:08; Admin Dose 20 MEQ; Start 09/14/16 at 09:00 Losartan Potassium (Cozaar) 25 mg DAILY PO Last administered on 09/14/16 09: 39; Admin Dose 25 MG; Start 09/14/16 at 09:00 Furosemide (Lasix) 20 mg DAILY IV Last administered on 09/14/16 09:40; Admin Dose 20 MG; Start 09/14/16 at 09:00 Docusate Sodium (Colace) 100 mg BID PO Last administered on 09/15/16 10:08; Admin Dose 100 MG; Start 09/14/16 at 09:00 Ondansetron HCl (Zofran Inj) 4 mg Q6H PRN IV NAUSEA AND/OR VOMITING; Start at 08:00 Acetaminophen/ Hydrocodone Bitart ([place] (5/325)) 1 tab Q6H PRN PO pain; Start 09/14/16 at 08:00 Atorvastatin Calcium (Lipitor) 40 mg HS PO Last administered on 09/14/16 22: 26; Admin Dose 40 MG; Start 09/14/16 at 21:00 Aspirin (Aspirin) 81 mg DAILY PO Last administered on 09/15/16 10:08; Admin Dose 81 MG; Start 09/15/16 at 09:00 Metoprolol Tartrate (Lopressor) 25 mg BID PO Last administered on 09/14/16at 21 :00; Admin Dose 25 MG; Start 09/14/16 at 21:00 Pantoprazole (Protonix Tab) 40 mg DAILY@06 PO Last administered on 09/15/16 06:31; Admin Dose 40 MG; Start 09/15/16 at 06:00 Al Hydrox/Mg Hydrox/Simethicone (Mag-Al Plus) 30 ml Q6H PRN PO GASTROINTESTINAL UPSET Last administered on 09/15/16at 10:07; Admin Dose 30 ML; Start 09/15/16 at 10:00 Louis Montalvo DO Sep 15, 2016 12:56
[2016-09-15] MEDS ORDERED: HEPARIN 1000 UNITS/ML 10 ML INJ ONE (16:10)
[2016-09-15] MEDS ORDERED: MIDAZOLAM 1 MG/ML 2 ML INJ ONE (16:11)
[2016-09-15] MEDS ORDERED: FENTAnyl 50 MCG/ML VIAL ONE (16:11)
[2016-09-15] MEDS ORDERED: NITROGLYCERIN (IC) 100 MCG/ML INJ ONE (16:11)
[2016-09-15] MEDS ORDERED: VERAPAMIL 5 MG INJ ONE (16:11)
[2016-09-15] MEDS ORDERED: niCARdipine 25 MG INJ ONE (16:42)
[2016-09-15] MEDS ORDERED: BIVALIRUDIN 250MG /NS 50 ML 100 ML IVPB ONE (17:13)
[2016-09-15] MEDS ORDERED: IODIXANOL LOCM 100 ML BTL ONE ×2 (17:30)
[2016-09-15] MEDS ORDERED: ASPIRIN 325 MG TAB ONE (18:07)
[2016-09-15] MEDS ORDERED: CLOPIDOGREL 300 MG TAB ONE (18:07)
[2016-09-15] MEDS: EPTIFIBATIDE 100 ML IV SCH (18:12)
--- NOTE | 2016-09-15 19:03 | CARRPT ---
DATE OF PROCEDURE: 09/15/2016 PROCEDURES: 1. Left heart catheterization. 2. Right and left coronary angiogram. 3. Interpretation and supervision of right and left coronary angiogram. 4. Left ventricular pressure measurements. 5. Angioplasty of the distal LAD with a 2.0 balloon. 6. Manual thrombectomy of the distal circumflex. 7. Right femoral artery approach. PATIENT HISTORY: This is a 56-year-old male who presents with non-ST elevation myocardial infarction, cardiomyopathy, and chest pain. FINDINGS: 1. LV pressure 115/1 with an EDP of 23. 2. Aortic 117/78. CORONARY ANATOMY: 1. Left main is a large caliber vessel with no significant disease. 2. Circumflex is a large caliber vessel. There is a mid 20% stenosis. Distally, it remains medium caliber vessel and there is 100% occlusion with a filling defect concerning for thrombus. 3. LAD is a large caliber vessel. There is a mid 10% stenosis. Distal there is a filling defect with 99% occlusion, that filling defect appears like thrombus. Distal to that thrombus, a very small vessel. 4. RCA is a large caliber vessel and is dominant. There is a proximal 10% stenosis, mid 20% stenosis, and a distal 10% stenosis. DESCRIPTION OF PROCEDURE: The patient was brought to the bean sprout laborer after informed consent. The patient was prepped and draped as per protocol. Right femoral artery access was obtained. Initially a 5-[place] sheath was used. Given the tortuosity noted in the right iliac, we used a 25 cm 5-[place] sheath. A 5-[place] JR4 diagnostic catheter was used to engage the left main and angiogram was performed. We next engaged the RCA with a 5-[place] JR4 catheter. Angiogram was performed. We next entered the left ventricle and pressure measurements were obtained. There was evidence of a filling defect noted in distal LAD as well as the distal circumflex concerning for thrombus. The patient with known history of atrial fibrillation and noncompliant with anticoagulation. Given the above, Angiomax was used for anticoagulation. We switched to a 6-[place] 25 cm sheath. Initially used an XB LAD 3.5 guide catheter, but did not sit well in the left main and was switched to a 6-[place] XB4 catheter, which set nice in the left main. We wired the LAD with a Runthrough wire. We next did dotter the area of occlusion and thrombus and did get through. We did give Cardene. Then using a 2.0 x 12 mm balloon, angioplasty was performed with slow, long inflations. There was improvement in flow seen up to that point, but in the distal LAD, flow was decreased. We did give Cardene with improvement of flow seen distal to the area of thrombus. Given the vessel was small distally, and this is likely secondary to thrombus formation from noncompliance with anticoagulation, and with distal flow being compromised, we did not feel stenting would be the correct option. Furthermore , patient is a known amphetamine user and he is uncompliant with medications. We next turned our attention to the circumflex. We crossed the area of thrombus with a Runthrough wire. We next used a eSKY.plto manual thrombectomy device and did multiple runs, as well as giving Cardene as well as Integrilin intracoronary. We did get significant clot removed, but there still remained thrombus in the distal vessel. We were unable to get our thrombectomy device any further. Given the distal vessel with poor flow currently and thrombus, we did not stent the region, because of poor distal flow and likely embolization. All catheters and wires were removed. The patient remained chest pain free. Plan on keeping the patient on anticoagulation and 2B3A overnight. An Angio- Seal closure device was used in the right femoral artery. There were no immediate complications. DIAGNOSES: 1. Myocardial infarction. 2. Likely embolization from atrial fibrillation causing vessel occlusion. COMPLICATIONS: None. ESTIMATED BLOOD LOSS: Minimal. RECOMMENDATIONS: Anticoagulation, 2B3A, antiplatelet therapy, cessation of amphetamines, and ICU care. Dictated By: BENITO MARCELINO/FELIX Conf#: [id number] DID#: [id number] CC: JEAN-PAUL ZAMUDIO MD;*EndCC* MTDD
[2016-09-15] MEDS ORDERED: HEPARIN 1000 UNITS/ML 10 ML INJ IV PRN (23:00)
[2016-09-15] MEDS ORDERED: HEPARIN 25000 UNITS/250 ML 250 ML IV SCH (23:00)
[2016-09-15] MEDS ORDERED: ZOLPIDEM 5 MG TAB PO PRN (23:30)
[2016-09-15 23:39] LABS: BASOPHIL # 0.1 10^3/ul (0.0-0.1); EOSINOPHILS # 0.1 10^3/ul (0.0-0.5); HEMOGLOBIN 12.2 g/dl (14.0-18.0); LYMPHOCYTES % 17.8 % (15.0-51.0); MEAN CORPUSCULAR HEMOGLOBIN 29.5 pg (29.0-33.0); MEAN CORPUSCULAR HGB CONC 32.9 g/dl (32.0-37.0); MEAN CORPUSCULAR VOLUME 89.6 fl (82.0-101.0); MEAN PLATELET VOLUME 8.1 fl (7.4-10.4); MONOCYTE # 0.6 10^3/ul (0.3-0.9); NEUTROPHILS % 69.2 % (39.0-77.0); PLATELET COUNT 241 10^3/UL (140-440); RED BLOOD COUNT 4.13 10^6/ul (4.70-6.10); UNCORRECTED WBC 5.9 10^3/ul (4.8-10.8); WHITE BLOOD COUNT 5.9 10^3/ul (4.8-10.8)
[2016-09-15 23:44] LABS: CONDITION 1; LH ANALYZER COMMENTS 1
[2016-09-15 23:48] LABS: POTASSIUM 3.7 mmol/L (3.5-5.1)
[2016-09-15 23:49] LABS: INR 1.45; PT RATIO 1.4
[2016-09-15 23:50] LABS: CREATININE 0.76 mg/dl (0.61-1.24); PARTIAL THROMBOPLASTIN TIME 62.2 Sec (25.0-35.0)
[2016-09-15 23:51] LABS: CALCIUM 8.4 mg/dl (8.4-10.2)
[2016-09-16] VITALS (29 sets, daily range): BP systolic 91–127; BP diastolic 53–94; PULSE 60–85; RESP 12–25
[2016-09-16] MEDS: ATORVASTATIN 40 MG TAB PO SCH ×2 (00:08→20:30)
[2016-09-16] MEDS: DOCUSATE SODIUM 100 MG CAP PO SCH ×3 (00:08→20:30)
[2016-09-16] MEDS: METOPROLOL 25 MG TAB PO SCH ×3 (00:08→20:30)
[2016-09-16] MEDS: LEVETIRACETAM 500 MG TAB PO SCH ×3 (00:08→20:30)
[2016-09-16 00:10] LABS: CK-MB 40.1 ng/ml (0.0-2.4); TROPONIN-I 36.7 ng/ml (0.00-0.12)
[2016-09-16 00:59] LABS: PROTIME 17.7 Sec (12.2-14.2)
[2016-09-16] MEDS: EPTIFIBATIDE 100 ML IV SCH (04:54)
[2016-09-16] MEDS: PANTOPRAZOLE (EC) 40 MG TAB PO SCH (04:55)
[2016-09-16 06:03] LABS: BASOPHILS % 0.5 % (0.0-2.0); EOSINOPHILS # 0.1 10^3/ul (0.0-0.5); EOSINOPHILS % 1.3 % (0.0-7.0); HEMATOCRIT 37.9 % (42.0-52.0); HEMOGLOBIN 12.6 g/dl (14.0-18.0); LYMPHOCYTES # 1.1 10^3/ul (0.8-2.9); LYMPHOCYTES % 17.5 % (15.0-51.0); MEAN CORPUSCULAR HEMOGLOBIN 29.8 pg (29.0-33.0); MEAN CORPUSCULAR HGB CONC 33.2 g/dl (32.0-37.0); MEAN CORPUSCULAR VOLUME 89.9 fl (82.0-101.0); MEAN PLATELET VOLUME 8.5 fl (7.4-10.4); MONOCYTE # 0.7 10^3/ul (0.3-0.9); MONOCYTES % 11.2 % (0.0-11.0); NEUTROPHIL # 4.4 10^3/ul (1.6-7.5); NEUTROPHILS % 69.5 % (39.0-77.0); PLATELET COUNT 249 10^3/UL (140-440); RED BLOOD COUNT 4.21 10^6/ul (4.70-6.10); RED CELL DISTRIBUTION WIDTH 16.2 % (11.5-14.5); UNCORRECTED WBC 6.3 10^3/ul (4.8-10.8); WHITE BLOOD COUNT 6.3 10^3/ul (4.8-10.8)
[2016-09-16 06:11] LABS: INR 1.18; PROTIME 15.1 Sec (12.2-14.2); PT RATIO 1.2
[2016-09-16 06:12] LABS: PARTIAL THROMBOPLASTIN TIME 41.9 Sec (25.0-35.0)
[2016-09-16 06:17] LABS: CONDITION 1; LH ANALYZER COMMENTS 1
[2016-09-16 06:22] LABS: CREATININE 0.86 mg/dl (0.61-1.24)
[2016-09-16 06:23] LABS: CALCIUM 8.4 mg/dl (8.4-10.2)
[2016-09-16 06:25] LABS: CK-MB 41.2 ng/ml (0.0-2.4)
[2016-09-16] MEDS ORDERED: ENOXAPARIN 100 MG/ML SYG SC ONE (09:00)
[2016-09-16] MEDS: ENOXAPARIN 100 MG/ML SYG SC SCH ×2 (09:25→20:32)
[2016-09-16] MEDS: ASPIRIN 81 MG TAB PO SCH (09:31)
[2016-09-16] MEDS: CLOPIDOGREL 75 MG TAB PO SCH (09:34)
[2016-09-16] MEDS: POTASSIUM CHLORIDE (SR) 20 MEQ TAB PO SCH (09:34)
[2016-09-16] MEDS: FUROSEMIDE 20 MG INJ IV SCH (09:36)
--- NOTE | 2016-09-16 09:52 | PN ---
Date/Time of Note Date/Time of Note DATE: 09/16/16 TIME: 09:43 Assessment/Plan VTE Prophylaxis VTE Prophylaxis Intervention: LMWH Lines/Catheters IV [facility] Peripheral IV Assessment/Plan Chief Complaint/Hosp Course ASSESSMENT AND PLAN: 1. Non-ST myocardial infarction. Cardiology has been consulted. 2D echocardiogram demonstrated ejection fraction of 30% with diastolic dysfunction. Continue aspirin, Lovenox and Lipitor. Metoprolol has been placed on hold secondary to hypotension. Status post Left heart catheterization, Right and left coronary angiogram, Angioplasty of the distal LAD with a 2.0 balloon and manual thrombectomy of the distal circumflex. Continue to monitor in ICU and aggressive medical management 2. Essential hypertension, at this time patient is hypotensive, we will place parameters for blood pressure medications 3. History of cerebrovascular accident. Continue aspirin and statin. Continue to monitor patient's blood pressure. 4. History of atrial fibrillation. Hold Lopressor. Status post Lovenox. At this time, we will hold warfarin. 5. Seizure disorder. No acute event. Continue Keppra. 6. Congestive heart failure. 2D echocardiogram with ejection fraction 30%, losartan and Lasix with caution secondary to hypotension. 7. For deep venous thrombosis prophylaxis, on Lovenox. 8. For gastrointestinal prophylaxis, we will place the patient on Protonix. We will continue to monitor patient closely. Further recommendations, management, and treatment as per clinical course. Patient has decided to change his CODE STATUS to DNR. Nurse was witnessed during the process Transferred to telemetry this evening if cleared by machine tailer Problems: Subjective 24 Hr Interval Summary Free Text/Dictation Status post left heart catheterization Patient denies of any chest pain or shortness of breath Tolerating oral intake Exam/Review of Systems Vital Signs Vitals Vital Signs Date Time Temp Pulse Resp B/P Pulse Ox O2 Delivery O2 Flow Rate FiO2 09/16/16 08:00 61 09/16/16 06:30 21 09/16/16 06:00 92/74 95 09/16/16 04:00 98.4 09/16/16 01:20 Nasal Cannula 3.0 Intake and Output 09/15/16 09/15/16 09/16/16 15:00 23:00 07:00 Intake Total 240 ml 274 ml Output Total 150 ml 100 ml Balance 90 ml 174 ml Exam General: The patient is well-developed, Not in acute distress. HEENT: Atraumatic, normocephalic. The pupils are equal and round . Neck: Supple with full range of motion. Chest: Normal expansion of the thorax during inspiration Lungs: Clear to auscultation bilaterally Heart: Normal S1-S2, Regular rhythm and rate. Abdomen: Soft , nontender, nondistended , bowel sounds are present. Extremities: Left hand flexion with decreased range of motion. Left upper and lower extremity weakness 4/5, no edema no cyanosis Neurologic: Normal mental status,The patient is awake, alert and oriented . Results Result Diagram: 09/16/16 0514 09/16/16 0511 Results 24 hrs Laboratory Tests Test 09/15/16 11:50 09/15/16 23:30 09/16/16 05:11 09/16/16 05:14 Anion Gap 13 13 14 Basophils # 0.0 0.1 0.0 Basophils % 0.5 1.0 0.5 Blood Morphology Comment Blood Urea Nitrogen 10 13 14 Calcium Level 8.8 8.4 8.4 Carbon Dioxide Level 31 29 28 Chloride Level 100 102 102 Creatine Kinase 598 H 420 #H 396 H Creatine Kinase Index 11.5 9.5 10.4 Creatinine 0.79 0.76 0.86 Creatinine Kinase MB (Mass) 69.00 H 40.10 H 41.20 H Eosinophils # 0.1 0.1 0.1 Eosinophils % 1.1 1.0 1.3 Glucose Level 82 118 81 Hematocrit 38.6 L 37.0 L 37.9 L Hemoglobin 12.6 L 12.2 L 12.6 L Lymphocytes # 1.1 1.0 1.1 Lymphocytes % 17.6 17.8 17.5 Mean Corpuscular Hemoglobin 29.6 29.5 29.8 Mean Corpuscular Hemoglobin Concent 32.8 32.9 33.2 Mean Corpuscular Volume 90.2 89.6 89.9 Mean Platelet Volume 8.3 8.1 8.5 Monocytes # 0.6 0.6 0.7 Monocytes % 9.7 11.0 11.2 H Neutrophils # 4.5 4.0 4.4 Neutrophils % 71.1 69.2 69.5 Nucleated Red Blood Cells # 0.0 0.0 0.0 Nucleated Red Blood Cells % 0.0 0.0 0.0 Platelet Count 271 241 249 Potassium Level 3.8 3.7 4.0 Red Blood Count 4.28 L 4.13 L 4.21 L Red Cell Distribution Width 16.4 H 16.0 H 16.2 H Sodium Level 140 140 140 Troponin I 33.900 *H 36.700 *H 38.000 *H White Blood Count 6.4 5.9 6.3 Activated Partial Thromboplast Time 62.2 H 41.9 H INR International Normalized Ratio 1.45 1.18 Prothrombin Time 17.7 #H 15.1 H Prothrombin Time Ratio 1.4 1.2 Medications Medications Current Medications Levetiracetam (Keppra) 500 mg BID PO Last administered on 09/16/16 09:31; Admin Dose 500 MG; Start 09/14/16 at 09:00 Potassium Chloride (Klor-Con 20) 20 meq DAILY PO Last administered on 09:34; Admin Dose 20 MEQ; Start 09/14/16 at 09:00 Losartan Potassium (Cozaar) 25 mg DAILY PO Last administered on 09/14/16 09: 39; Admin Dose 25 MG; Start 09/14/16 at 09:00 Furosemide (Lasix) 20 mg DAILY IV Last administered on 09/16/16 09:36; Admin Dose 20 MG; Start 09/14/16 at 09:00 Docusate Sodium (Colace) 100 mg BID PO Last administered on 09/16/16 09:34; Admin Dose 100 MG; Start 09/14/16 at 09:00 Ondansetron HCl (Zofran Inj) 4 mg Q6H PRN IV NAUSEA AND/OR VOMITING Last administered on 09/15/16 18:57; Admin Dose 4 MG; Start 09/14/16 at 08:00 Acetaminophen/ Hydrocodone Bitart ([place] (5/325)) 1 tab Q6H PRN PO pain Last administered on 09/15/16 19:00; Admin Dose 1 TAB; Start 09/14/16 at 08:00 Atorvastatin Calcium (Lipitor) 40 mg HS PO Last administered on 09/16/16 00: 08; Admin Dose 40 MG; Start 09/14/16 at 21:00 Aspirin (Aspirin) 81 mg DAILY PO Last administered on 09/16/16 09:31; Admin Dose 81 MG; Start 09/15/16 at 09:00 Metoprolol Tartrate (Lopressor) 25 mg BID PO Last administered on 09/16/16 09 :36; Admin Dose 25 MG; Start 09/14/16 at 21:00 Pantoprazole (Protonix Tab) 40 mg DAILY@06 PO Last administered on 09/16/16 04:55; Admin Dose 40 MG; Start 09/15/16 at 06:00 Al Hydrox/Mg Hydrox/Simethicone (Mag-Al Plus) 30 ml Q6H PRN PO GASTROINTESTINAL UPSET Last administered on 09/15/16 10:07; Admin Dose 30 ML; Start 09/15/16 at 10:00 Clopidogrel Bisulfate (plaVIX) 75 mg DAILY PO Last administered on 09/16/16 09:34; Admin Dose 75 MG; Start 09/16/16 at 09:00 Zolpidem Tartrate (Ambien) 5 mg HS PRN PO INSOMNIA; Start 09/15/16 at 23:30 Enoxaparin Sodium (Lovenox) 90 mg BID SC Last administered on 09/16/16 09:25 ; Admin Dose 90 MG; Start 09/16/16 at 09:00 AVERY CAMPO MD Sep 16, 2016 09:52
[2016-09-16] MEDS: LOSARTAN 25 MG TAB PO SCH (10:51)
[2016-09-16 16:18] LABS: CK-MB 32.8 ng/ml (0.0-2.4)
[2016-09-16 16:23] LABS: TROPONIN-I 30.3 ng/ml (0.00-0.12)
--- NOTE | 2016-09-16 18:56 | RADRPT ---
Vent Rate: 62 bpm RR Interval: 0 msec [place] Interval: 0 msec QRS Duration: 220 msec QT Interval: 552 msec QTC Interval: 560 msec P-R-T [place]: 0 - -74 - 104 degrees Electronic ventricular pacemaker Electronically Signed By: Uche Collins [id number]
--- NOTE | 2016-09-16 22:19 | CONS ---
Date/Time of Note Date/Time of Note DATE: 09/16/16 TIME: 22:07 Assessment/Plan Assessment/Plan Additional Assessment/Plan Non-ST elevation [place] History of congestive heart failure, currently compensated Cardiomyopathy with ejection fraction 30% Atrial fibrillation, noncompliant with anticoagulation History of CVA with left hemiparesis Methamphetamine use -pt s/p cardiac cath with distal thrombus seen in LAD and CX, likely secondary to a.fib and CHF with non-compliance with a/c. Thrombectomy and angioplasty performed and pt continued on IV Integrilin and now on Lovenox. Pt with active meth use and poor medication compliance which makes management difficult.Would cont ASA/PLAVIX/Lovenox for now, would consider using novel a/c (ie Eliquis) secondary to easier compliance. Consultation Date/Type/Reason Admit Date/Time Sep 14, 2016 at 05:16 Type of Consultation: cv 24 HR Interval Summary Free Text/Dictation denies cp, sob, nausea Exam/Review of Systems Vital Signs Vitals Vital Signs Date Time Temp Pulse Resp B/P Pulse Ox O2 Delivery O2 Flow Rate FiO2 09/16/16 22:00 76 09/16/16 21:00 18 120/94 97 Room Air 09/16/16 19:30 98.9 09/16/16 09:00 3.0 Intake and Output 09/15/16 09/15/16 09/16/16 15:00 23:00 07:00 Intake Total 240 ml 274 ml Output Total 150 ml 100 ml Balance 90 ml 174 ml Exam nad Constitutional: alert, oriented Head: normocephalic Neck: supple Respiratory: clear to auscultation, normal air movement Cardiovascular: irregular rhythm, other (s1s2) Gastrointestinal: bowel sounds, non-tender, soft Extremities: edema (trace LLE) Results Result Diagram: 09/16/16 0514 09/16/16 0511 Results 24 hrs Laboratory Tests Test 09/15/16 23:30 09/16/16 05:11 09/16/16 05:14 09/16/16 15:40 Activated Partial Thromboplast Time 62.2 H 41.9 H Anion Gap 13 14 Basophils # 0.1 0.0 Basophils % 1.0 0.5 Blood Morphology Comment Blood Urea Nitrogen 13 14 Calcium Level 8.4 8.4 Carbon Dioxide Level 29 28 Chloride Level 102 102 Creatine Kinase 420 #H 396 H 318 H Creatine Kinase Index 9.5 10.4 10.3 Creatinine 0.76 0.86 Creatinine Kinase MB (Mass) 40.10 H 41.20 H 32.80 H Eosinophils # 0.1 0.1 Eosinophils % 1.0 1.3 Glucose Level 118 81 Hematocrit 37.0 L 37.9 L Hemoglobin 12.2 L 12.6 L INR International Normalized Ratio 1.45 1.18 Lymphocytes # 1.0 1.1 Lymphocytes % 17.8 17.5 Mean Corpuscular Hemoglobin 29.5 29.8 Mean Corpuscular Hemoglobin Concent 32.9 33.2 Mean Corpuscular Volume 89.6 89.9 Mean Platelet Volume 8.1 8.5 Monocytes # 0.6 0.7 Monocytes % 11.0 11.2 H Neutrophils # 4.0 4.4 Neutrophils % 69.2 69.5 Nucleated Red Blood Cells # 0.0 0.0 Nucleated Red Blood Cells % 0.0 0.0 Platelet Count 241 249 Potassium Level 3.7 4.0 Prothrombin Time 17.7 #H 15.1 H Prothrombin Time Ratio 1.4 1.2 Red Blood Count 4.13 L 4.21 L Red Cell Distribution Width 16.0 H 16.2 H Sodium Level 140 140 Troponin I 36.700 *H 38.000 *H 30.300 *H White Blood Count 5.9 6.3 Medications Medications Current Medications Levetiracetam (Keppra) 500 mg BID PO Last administered on 09/16/16 20:30; Admin Dose 500 MG; Start 09/14/16 at 09:00 Potassium Chloride (Klor-Con 20) 20 meq DAILY PO Last administered on 09:34; Admin Dose 20 MEQ; Start 09/14/16 at 09:00 Losartan Potassium (Cozaar) 25 mg DAILY PO Last administered on 09/16/16 10: 51; Admin Dose 25 MG; Start 09/14/16 at 09:00 Furosemide (Lasix) 20 mg DAILY IV Last administered on 09/16/16 09:36; Admin Dose 20 MG; Start 09/14/16 at 09:00 Docusate Sodium (Colace) 100 mg BID PO Last administered on 09/16/16 20:30; Admin Dose 100 MG; Start 09/14/16 at 09:00 Ondansetron HCl (Zofran Inj) 4 mg Q6H PRN IV NAUSEA AND/OR VOMITING Last administered on 09/15/16 18:57; Admin Dose 4 MG; Start 09/14/16 at 08:00 Acetaminophen/ Hydrocodone Bitart ([place] (5/325)) 1 tab Q6H PRN PO pain Last administered on 09/15/16 19:00; Admin Dose 1 TAB; Start 09/14/16 at 08:00 Atorvastatin Calcium (Lipitor) 40 mg HS PO Last administered on 09/16/16 20: 30; Admin Dose 40 MG; Start 09/14/16 at 21:00 Aspirin (Aspirin) 81 mg DAILY PO Last administered on 09/16/16 09:31; Admin Dose 81 MG; Start 09/15/16 at 09:00 Metoprolol Tartrate (Lopressor) 25 mg BID PO Last administered on 09/16/16 20 :30; Admin Dose 25 MG; Start 09/14/16 at 21:00 Pantoprazole (Protonix Tab) 40 mg DAILY@06 PO Last administered on 09/16/16 04:55; Admin Dose 40 MG; Start 09/15/16 at 06:00 Al Hydrox/Mg Hydrox/Simethicone (Mag-Al Plus) 30 ml Q6H PRN PO GASTROINTESTINAL UPSET Last administered on 09/15/16 10:07; Admin Dose 30 ML; Start 09/15/16 at 10:00 Clopidogrel Bisulfate (plaVIX) 75 mg DAILY PO Last administered on 09/16/16 09:34; Admin Dose 75 MG; Start 09/16/16 at 09:00 Zolpidem Tartrate (Ambien) 5 mg HS PRN PO INSOMNIA; Start 09/15/16 at 23:30 Enoxaparin Sodium (Lovenox) 90 mg BID SC Last administered on 09/16/16 20:32 ; Admin Dose 90 MG; Start 09/16/16 at 09:00 Louis Montalvo DO Sep 16, 2016 22:18
[2016-09-17] VITALS (11 sets, daily range): BP systolic 99–125; BP diastolic 58–80; PULSE 65–91; RESP 16–22
[2016-09-17] MEDS: DIPHENHYDRAMINE 25 MG CAP PO PRN ×2 (01:53→18:46)
[2016-09-17] MEDS: PANTOPRAZOLE (EC) 40 MG TAB PO SCH (05:52)
[2016-09-17] MEDS: LOSARTAN 25 MG TAB PO SCH (09:00)
[2016-09-17] MEDS: LEVETIRACETAM 500 MG TAB PO SCH ×2 (09:57→21:18)
[2016-09-17] MEDS: FUROSEMIDE 20 MG INJ IV SCH (09:57)
[2016-09-17] MEDS: DOCUSATE SODIUM 100 MG CAP PO SCH ×2 (09:57→21:18)
[2016-09-17] MEDS: CLOPIDOGREL 75 MG TAB PO SCH (09:58)
[2016-09-17] MEDS: ASPIRIN 81 MG TAB PO SCH (09:58)
[2016-09-17] MEDS: POTASSIUM CHLORIDE (SR) 20 MEQ TAB PO SCH (09:58)
[2016-09-17] MEDS: ENOXAPARIN 100 MG/ML SYG SC SCH ×2 (10:02→22:53)
--- NOTE | 2016-09-17 11:36 | CONS ---
Date/Time of Note Date/Time of Note DATE: 09/17/16 TIME: 11:32 Assessment/Plan Assessment/Plan Additional Assessment/Plan Non-ST elevation [place] History of congestive heart failure, currently compensated Cardiomyopathy with ejection fraction 30% Atrial fibrillation, noncompliant with anticoagulation History of CVA with left hemiparesis Active Methamphetamine use -pt s/p cardiac cath with distal thrombus seen in LAD and CX, likely secondary to a.fib and CHF with non-compliance with a/c as well as active methamphetamine use. Thrombectomy and angioplasty performed and pt continued on on Lovenox. Pt with active meth use and poor medication compliance which makes management difficult.Would cont ASA/PLAVIX/Lovenox for now, would consider using novel a/c (ie Eliquis) secondary to easier compliance then Coumadin. Would change Lasix to by mouth, would continue Plavix and anticoagulation as an outpatient and DC aspirin, DC planning Consultation Date/Type/Reason Admit Date/Time Sep 14, 2016 at 05:16 Type of Consultation: cv 24 HR Interval Summary Free Text/Dictation Patient feeling better, denies shortness of breath, chest pain or palpitations Exam/Review of Systems Vital Signs Vitals Vital Signs Date Time Temp Pulse Resp B/P Pulse Ox O2 Delivery O2 Flow Rate FiO2 09/17/16 08:42 99.6 78 19 99/58 97 09/17/16 04:00 09/16/16 09:00 3.0 Intake and Output 09/16/16 09/16/16 09/17/16 15:00 23:00 07:00 Intake Total 150 ml 100 ml 200 ml Output Total 600 ml 50 ml 300 ml Balance -450 ml 50 ml -100 ml Exam No apparent distress Constitutional: alert, oriented Head: normocephalic Neck: supple Respiratory: other (course breath sounds bilaterally, no wheezing) Cardiovascular: irregular rhythm, other (S1-S2 heard) Gastrointestinal: bowel sounds, non-tender, soft Extremities: edema Results Result Diagram: 09/16/1614 09/16/16 05 Results 24 hrs Laboratory Tests Test 09/16/16 15:40 Creatine Kinase 318 H Creatine Kinase Index 10.3 Creatinine Kinase MB (Mass) 32.80 H Troponin I 30.300 *H Medications Medications Current Medications Levetiracetam (Keppra) 500 mg BID PO Last administered on 09/17/16at 09:57; Admin Dose 500 MG; Start 09/14/16 at 09:00 Potassium Chloride (Klor-Con 20) 20 meq DAILY PO Last administered on 09:58; Admin Dose 20 MEQ; Start 09/14/16 at 09:00 Losartan Potassium (Cozaar) 25 mg DAILY PO Last administered on 09/16/16 10: 51; Admin Dose 25 MG; Start 09/14/16 at 09:00 Furosemide (Lasix) 20 mg DAILY IV Last administered on 09/17/16 09:57; Admin Dose 20 MG; Start 09/14/16 at 09:00 Docusate Sodium (Colace) 100 mg BID PO Last administered on 09/17/16 09:57; Admin Dose 100 MG; Start 09/14/16 at 09:00 Ondansetron HCl (Zofran Inj) 4 mg Q6H PRN IV NAUSEA AND/OR VOMITING Last administered on 09/15/16 18:57; Admin Dose 4 MG; Start 09/14/16 at 08:00 Acetaminophen/ Hydrocodone Bitart ([place] (5/325)) 1 tab Q6H PRN PO pain Last administered on 09/15/16 19:00; Admin Dose 1 TAB; Start 09/14/16 at 08:00 Atorvastatin Calcium (Lipitor) 40 mg HS PO Last administered on 09/16/16 20: 30; Admin Dose 40 MG; Start 09/14/16 at 21:00 Aspirin (Aspirin) 81 mg DAILY PO Last administered on 09/17/16 09:58; Admin Dose 81 MG; Start 09/15/16 at 09:00 Pantoprazole (Protonix Tab) 40 mg DAILY@06 PO Last administered on 09/16/16 04:55; Admin Dose 40 MG; Start 09/15/16 at 06:00 Al Hydrox/Mg Hydrox/Simethicone (Mag-Al Plus) 30 ml Q6H PRN PO GASTROINTESTINAL UPSET Last administered on 09/15/16 10:07; Admin Dose 30 ML; Start 09/15/16 at 10:00 Clopidogrel Bisulfate (plaVIX) 75 mg DAILY PO Last administered on 09/17/16 09:58; Admin Dose 75 MG; Start 09/16/16 at 09:00 Zolpidem Tartrate (Ambien) 5 mg HS PRN PO INSOMNIA; Start 09/15/16 at 23:30 Enoxaparin Sodium (Lovenox) 90 mg BID SC Last administered on 09/17/16at 10:02 ; Admin Dose 90 MG; Start 09/16/16 at 09:00 Carvedilol (Coreg) 6.25 mg BID PO Last administered on 09/17/16at 10:01; Admin Dose 6.25 MG; Start 09/17/16 at 09:00 Diphenhydramine HCl (Benadryl) 25 mg Q8H PRN PO ITCHING Last administered on at 01:53; Admin Dose 25 MG; Start 09/17/16 at 02:00 Triamcinolone Acetonide (Kenalog 0.5% Cr) 1 applic BID PRN TOP ITCHING; Start 09/17/16 at 02:00 Louis Montalvo DO Sep 17, 2016 11:36
--- NOTE | 2016-09-17 15:17 | PDOCDIS ---
Discharge Instructions CONDITION Patient Condition: Fair HOME CARE INSTRUCTIONS: Special Diet: LOW FAT LOW CHOLESTEROL ACTIVITY: Activity Restrictions: Slowly Increase Activity Rest between Activity Special Program FOLLOW UP/APPOINTMENTS Appointments Follow-up with primary care physician and digital engineer as outpatient AVERY CAMPO MD Sep 17, 2016 15:17
[2016-09-17] MEDS ORDERED: WARF2.5T PO (15:30)
[2016-09-17] MEDS ORDERED: CARV6.2579 PO (15:30)
[2016-09-17] MEDS ORDERED: FURO20TA PO (15:30)
[2016-09-17] MEDS ORDERED: CLOP75TA28 PO (15:30)
[2016-09-17] MEDS ORDERED: PANT40TA4 PO (15:30)
[2016-09-17] MEDS ORDERED: POTA-57 PO (15:30)
[2016-09-17] MEDS ORDERED: DOCU-144 PO (15:30)
[2016-09-17] MEDS ORDERED: LOSA25TA47 PO (15:30)
[2016-09-17] MEDS ORDERED: ASP81 PO (15:30)
[2016-09-17] MEDS ORDERED: ATOR40TA68 PO (15:30)
[2016-09-17] MEDS: ATORVASTATIN 40 MG TAB PO SCH (21:18)
[2016-09-18] MEDS: PANTOPRAZOLE (EC) 40 MG TAB PO SCH (06:00)
--- NOTE | 2016-09-18 06:21 | DS ---
DATE OF ADMISSION: 09/14/2016 DATE OF DISCHARGE: 09/17/2016 CONSULTANTS: Cryogenic Transport Driver. PROCEDURES: 1. 2D echocardiogram, which demonstrated mild conservative left ventricular hypertrophy. Mild enla rgement of the left ventricle cavity. Severe left ventricle systolic dysfunction. Ejection fractio n visually estimated at 30%. Abnormal diastolic dysfunction. Mild enlargement of the right ventric le. Mild right ventricle hyperkinesis. Pacemaker, right heart. There is severe enlargement of the left and right atrium. Moderate mitral valve regurgitation. The regurgitation is eccentrically di rected, which may underestimate the severity of the mitral regurgitation. Estimated peak PA systoli c pressure of 62 mmHg. There is moderate tricuspid regurgitation. No hemodynamically significant a ortic stenosis by Doppler. Trace aortic valve regurgitation. Normal pericardium, with no significa nt pericardial effusion. 2. On 09/15/2016 left heart catheterization, right and left coronary angiogram. Interpretation and supervision of the right and left coronary angiogram. Left ventricular pressure measurement. Angio plasty of the distal LAD with a 2.0 balloon. Manual thrombectomy of the distal circumflex. Right f emoral artery approach. DIAGNOSES: 1. Non-ST elevation myocardial infarction. The patient is status post left heart catheterization, angioplasty of the distal LAD, and manual thrombectomy of the distal circumflex. Continue aspirin, statin, beta iraida, and Coumadin. 2. Cardiomyopathy. Continue beta iraida and losartan. 3. History of drug abuse and methamphetamine use. The patient was educated regarding the risks and has been instructed to quit illicit drug use. 3. Essential hypertension. Well controlled on medical management. 4. History of cerebrovascular accident. Continue aspirin and statin. 5. History of atrial fibrillation. Continue Lopressor and warfarin. 6. Seizure disorder. On Keppra. 7. Ischemic cardiomyopathy with an ejection fraction of 30%. Continue losartan and Lasix. VITAL SIGNS: Temperature 99, pulse 74, respirations 21, blood pressure 150/70, oxygen 96% on room ai r. DISCHARGE MEDICATIONS: 1. Lasix 20 mg. 2. Warfarin 2.5 mg. 3. Aspirin 81 mg daily. 4. Lipitor 40 mg. 5. Carvedilol 6.25 mg. 6. Plavix 75 mg. 7. Losartan 25 mg. 8. Potassium chloride 20 mEq. 9. Colace 100 mg. 10. Protonix 40 mg. ALLERGIES: PENICILLIN. HOSPITAL COURSE: This is a 56-year-old gentleman with a past medical history of hypertension, dysli pidemia, cerebrovascular accident with left-sided residual, seizure, atrial fibrillation, congestive heart failure and noncompliance with medications, a history of methamphetamine use, who has been co mplaining of having chest pain. 911 was called and EMS went to his residence and he was brought int o the emergency room at [facility]. Upon evaluation of EMS, STEMI was found on th e EKG, although upon arrival to the field EKG was reviewed and it was noted not to be a ST segment e levation myocardial infarction, per self storage manager. The patient was placed on Lovenox. His troponin increased from 0.14 to 1.090. The patient was evaluated by the self storage manager and was placed on Lovenox and there was a plan for him to be taken to the left heart laborer operator, although he refused ca theterization and he just wanted to be medically managed. When his troponin started to rise up the medicine team and cardiology spoke to him regarding this manner and he agreed to be taken to the cat h lab, although he did not want any stent, and was found to have a thrombi in his LAD and distal cir cumflex, for which he had angioplasty of the distal LAD with a 2.0 balloon and mild thrombectomy of the distal circumflex. He was taken to the ICU post-cath and was monitored there for 24 hours. He w as continued with medical management. He was placed on a statin, Plavix, aspirin and continued on Lo venox. The patient was then transferred to the telemetry floor, where he has been stable. Today on 09/17/2016 the patient has been stable cardiac nava to be discharged. I had an extensive talk with him regarding being transferred to a long term facility because I strongly believe that he is not safe due to his drug habits and noncompliance with medication to be sent home, although he is ad amant that he wants to be discharged home. He is refusing a long term facility, despite being a risk of being discharged home due to his history of noncompliance. A nurse witnessed during this conversation and he was adamant that he wanted to be discharged home on medication. I had an extens yennifer talk with him regarding his history of drug use and I have instructed him to quit the use of any illicit drugs. At this time the patient is in good condition to be discharged home. He needs to b e compliant with all his medications. Home health will be set up by the spring encaser at [facility], with physical therapy and a home safety evaluation. Dictated By: AVERY MACHADO/FELIX Conf#: [id number] DID#: [id number]
[2016-09-18 08:00] VITALS: BP 120/77; PULSE 84; RESP 20
[2016-09-18] MEDS: DOCUSATE SODIUM 100 MG CAP PO SCH ×2 (09:00→21:02)
[2016-09-18] MEDS: CLOPIDOGREL 75 MG TAB PO SCH (09:29)
[2016-09-18] MEDS: POTASSIUM CHLORIDE (SR) 20 MEQ TAB PO SCH (09:29)
[2016-09-18] MEDS: LEVETIRACETAM 500 MG TAB PO SCH ×2 (09:29→21:02)
[2016-09-18] MEDS: FUROSEMIDE 20 MG INJ IV SCH (09:29)
[2016-09-18] MEDS: ASPIRIN 81 MG TAB PO SCH (09:29)
[2016-09-18] MEDS: LOSARTAN 25 MG TAB PO SCH (09:30)
[2016-09-18] MEDS: ENOXAPARIN 100 MG/ML SYG SC SCH ×2 (09:31→21:00)
[2016-09-18 11:58] LABS: TROPONIN-I 14.2 ng/ml (0.00-0.12)
[2016-09-18 11:59] LABS: CK-MB 3.49 ng/ml (0.0-2.4)
--- NOTE | 2016-09-18 13:31 | CONS ---
Date/Time of Note Date/Time of Note DATE: 09/18/16 TIME: 13:29 Assessment/Plan Assessment/Plan Chief Complaint/Hosp Course 1. Non-ST elevation myocardial infarction. The patient is status post left heart catheterization, angioplasty of the distal LAD, and manual thrombectomy of the distal circumflex. 2. Cardiomyopathy. 3. History of drug abuse and methamphetamine use. 3. Essential hypertension. 4. History of cerebrovascular accident. 5. History of atrial fibrillation. 6. Seizure disorder. 7. Ischemic cardiomyopathy with an ejection fraction of 30%. Problems: Additional Assessment/Plan 1) NOAC may be better suited than warfarin given lack of fu 2) DAPT 3) downtrending troponin Consultation Date/Type/Reason Admit Date/Time Sep 14, 2016 at 05:16 Initial Consult Date Type of Consultation: cv 24 HR Interval Summary Free Text/Dictation resting, no chest pain, no sob, able to lie supine Detailed Summary ENT: no complaints Respiratory: no complaints Cardiovascular: no complaints Gastrointestinal: no complaints Musculoskeletal: no complaints Skin: no complaints Exam/Review of Systems Vital Signs Vitals Vital Signs Date Time Temp Pulse Resp B/P Pulse Ox O2 Delivery O2 Flow Rate FiO2 09/18/16 08:00 98.8 84 20 120/77 94 Room Air 09/16/16 09:00 3.0 Intake and Output 09/17/16 09/17/16 09/18/16 15:00 23:00 07:00 Intake Total 800 ml 400 ml Output Total 2100 ml 250 ml Balance -1300 ml 150 ml Exam Psych: no complaints Head: atraumatic, normocephalic Neck: supple Respiratory: clear to auscultation Cardiovascular: regular rate and rhythm Gastrointestinal: soft Musculoskeletal: nl extremities to inspection Results Result Diagram: 09/16/16 0514 09/16/16 0511 Results 24 hrs Laboratory Tests Test 09/18/16 10:56 Creatine Kinase 99 # Creatine Kinase Index 3.5 Creatinine Kinase MB (Mass) 3.49 H Troponin I 14.200 *H Medications Medications Current Medications Levetiracetam (Keppra) 500 mg BID PO Last administered on 09/18/16at 09:29; Admin Dose 500 MG; Start 09/14/16 at 09:00 Potassium Chloride (Klor-Con 20) 20 meq DAILY PO Last administered on at 09:29; Admin Dose 20 MEQ; Start 09/14/16 at 09:00 Losartan Potassium (Cozaar) 25 mg DAILY PO Last administered on 09/18/16 09: 30; Admin Dose 25 MG; Start 09/14/16 at 09:00 Furosemide (Lasix) 20 mg DAILY IV Last administered on 09/18/16 09:29; Admin Dose 20 MG; Start 09/14/16 at 09:00 Docusate Sodium (Colace) 100 mg BID PO Last administered on 09/17/16 21:18; Admin Dose 100 MG; Start 09/14/16 at 09:00 Ondansetron HCl (Zofran Inj) 4 mg Q6H PRN IV NAUSEA AND/OR VOMITING Last administered on 09/15/16 18:57; Admin Dose 4 MG; Start 09/14/16 at 08:00 Acetaminophen/ Hydrocodone Bitart ([place] (5/325)) 1 tab Q6H PRN PO pain Last administered on 09/15/16 19:00; Admin Dose 1 TAB; Start 09/14/16 at 08:00 Atorvastatin Calcium (Lipitor) 40 mg HS PO Last administered on 09/17/16 21: 18; Admin Dose 40 MG; Start 09/14/16 at 21:00 Aspirin (Aspirin) 81 mg DAILY PO Last administered on 09/18/16 09:29; Admin Dose 81 MG; Start 09/15/16 at 09:00 Pantoprazole (Protonix Tab) 40 mg DAILY@06 PO Last administered on 09/16/16 04:55; Admin Dose 40 MG; Start 09/15/16 at 06:00 Al Hydrox/Mg Hydrox/Simethicone (Mag-Al Plus) 30 ml Q6H PRN PO GASTROINTESTINAL UPSET Last administered on 09/15/16 10:07; Admin Dose 30 ML; Start 09/15/16 at 10:00 Clopidogrel Bisulfate (plaVIX) 75 mg DAILY PO Last administered on 09/18/16 09:29; Admin Dose 75 MG; Start 09/16/16 at 09:00 Zolpidem Tartrate (Ambien) 5 mg HS PRN PO INSOMNIA; Start 09/15/16 at 23:30 Enoxaparin Sodium (Lovenox) 90 mg BID SC Last administered on 09/18/16 09:31 ; Admin Dose 90 MG; Start 09/16/16 at 09:00 Carvedilol (Coreg) 6.25 mg BID PO Last administered on 09/18/16at 09:30; Admin Dose 6.25 MG; Start 09/17/16 at 09:00 Diphenhydramine HCl (Benadryl) 25 mg Q8H PRN PO ITCHING Last administered on at 18:46; Admin Dose 25 MG; Start 09/17/16 at 02:00 Triamcinolone Acetonide (Kenalog 0.5% Cr) 1 applic BID PRN TOP ITCHING; Start 09/17/16 at 02:00 KAILA CONNELLY MD Sep 18, 2016 13:31
--- NOTE | 2016-09-18 13:53 | PN ---
Date/Time of Note Date/Time of Note DATE: 09/18/16 TIME: 13:51 Assessment/Plan VTE Prophylaxis VTE Prophylaxis Intervention: other Lines/Catheters IV [facility] Urinary Cath still in place: No Assessment/Plan Problems: (1) ACS (acute coronary syndrome) Status: Acute Comment: Status post PCI with stenting. We are somewhat handicapped about discharge planning as the patient has no meaningful way to get to his home and wants more does not have a dugan to the apartment. marine services technician have been attempting to reach the assistant credit manager apparently unsuccessfully so far. As such if we send him out would be an unsafe discharge until social sciences lecturer manages to help us with these little details he will remain here Subjective 24 Hr Interval Summary Constitutional: no complaints Respiratory: no complaints Cardiovascular: no complaints Gastrointestinal: no complaints Exam/Review of Systems Vital Signs Vitals Vital Signs Date Time Temp Pulse Resp B/P Pulse Ox O2 Delivery O2 Flow Rate FiO2 09/18/16 08:00 98.8 84 20 120/77 94 Room Air 09/16/16 09:00 3.0 Intake and Output 09/17/16 09/17/16 09/18/16 15:00 23:00 07:00 Intake Total 800 ml 400 ml Output Total 2100 ml 250 ml Balance -1300 ml 150 ml Exam Constitutional: alert, oriented Respiratory: clear to auscultation, normal air movement Cardiovascular: nl pulses, regular rate and rhythm Gastrointestinal: non-tender, soft Results Result Diagram: 09/16/16 0514 09/16/16 0511 Results 24 hrs Laboratory Tests Test 09/18/16 10:56 Creatine Kinase 99 # Creatine Kinase Index 3.5 Creatinine Kinase MB (Mass) 3.49 H Troponin I 14.200 *H Medications Medications Current Medications Levetiracetam (Keppra) 500 mg BID PO Last administered on 09/18/16at 09:29; Admin Dose 500 MG; Start 09/14/16 at 09:00 Potassium Chloride (Klor-Con 20) 20 meq DAILY PO Last administered on at 09:29; Admin Dose 20 MEQ; Start 09/14/16 at 09:00 Losartan Potassium (Cozaar) 25 mg DAILY PO Last administered on 09/18/16at 09: 30; Admin Dose 25 MG; Start 12/27/16 at 09:00 Furosemide (Lasix) 20 mg DAILY IV Last administered on 09/18/16 09:29; Admin Dose 20 MG; Start 09/14/16 at 09:00 Docusate Sodium (Colace) 100 mg BID PO Last administered on 09/17/16 21:18; Admin Dose 100 MG; Start 09/14/16 at 09:00 Ondansetron HCl (Zofran Inj) 4 mg Q6H PRN IV NAUSEA AND/OR VOMITING Last administered on 09/15/16 18:57; Admin Dose 4 MG; Start 09/14/16 at 08:00 Acetaminophen/ Hydrocodone Bitart ([place] (5/325)) 1 tab Q6H PRN PO pain Last administered on 09/15/16 19:00; Admin Dose 1 TAB; Start 09/14/16 at 08:00 Atorvastatin Calcium (Lipitor) 40 mg HS PO Last administered on 09/17/16 21: 18; Admin Dose 40 MG; Start 09/14/16 at 21:00 Aspirin (Aspirin) 81 mg DAILY PO Last administered on 09/18/16 09:29; Admin Dose 81 MG; Start 09/15/16 at 09:00 Pantoprazole (Protonix Tab) 40 mg DAILY@06 PO Last administered on 09/16/16 04:55; Admin Dose 40 MG; Start 09/15/16 at 06:00 Al Hydrox/Mg Hydrox/Simethicone (Mag-Al Plus) 30 ml Q6H PRN PO GASTROINTESTINAL UPSET Last administered on 09/15/16at 10:07; Admin Dose 30 ML; Start 09/15/16 at 10:00 Clopidogrel Bisulfate (plaVIX) 75 mg DAILY PO Last administered on 09/18/16 09:29; Admin Dose 75 MG; Start 09/16/16 at 09:00 Zolpidem Tartrate (Ambien) 5 mg HS PRN PO INSOMNIA; Start 09/15/16 at 23:30 Enoxaparin Sodium (Lovenox) 90 mg BID SC Last administered on 09/18/16 09:31 ; Admin Dose 90 MG; Start 09/16/16 at 09:00 Carvedilol (Coreg) 6.25 mg BID PO Last administered on 09/18/16 09:30; Admin Dose 6.25 MG; Start 09/17/16 at 09:00 Diphenhydramine HCl (Benadryl) 25 mg Q8H PRN PO ITCHING Last administered on at 18:46; Admin Dose 25 MG; Start 09/17/16 at 02:00 Triamcinolone Acetonide (Kenalog 0.5% Cr) 1 applic BID PRN TOP ITCHING; Start 09/17/16 at 02:00 CORY ENGLISH MD Sep 18, 2016 13:52
[2016-09-18 15:35] VITALS: BP 114/84; PULSE 64; RESP 16
[2016-09-18 20:00] VITALS: BP 133/75; PULSE 72; RESP 18
[2016-09-18] MEDS: ATORVASTATIN 40 MG TAB PO SCH (21:00)
[2016-09-18] MEDS: TRIAMCINOLONE ACET 0.5% 15 GM CR TOP PRN (21:02)
[2016-09-18] MEDS: DIPHENHYDRAMINE 25 MG CAP PO PRN (21:03)
[2016-09-19] MEDS: DIPHENHYDRAMINE 25 MG CAP PO PRN ×2 (05:12→19:03)
[2016-09-19] MEDS: PANTOPRAZOLE (EC) 40 MG TAB PO SCH (05:15)
[2016-09-19] MEDS: GUAIFENESIN 20 MG/ML 5ML CUP PO PRN ×2 (05:15→20:45)
[2016-09-19 07:41] VITALS: BP 112/76; RESP 18
[2016-09-19] MEDS: LOSARTAN 25 MG TAB PO SCH (09:00)
[2016-09-19] MEDS: DOCUSATE SODIUM 100 MG CAP PO SCH ×2 (09:00→20:39)
[2016-09-19] MEDS: POTASSIUM CHLORIDE (SR) 20 MEQ TAB PO SCH (09:00)
[2016-09-19] MEDS: FUROSEMIDE 20 MG INJ IV SCH (09:00)
[2016-09-19] MEDS: LEVETIRACETAM 500 MG TAB PO SCH ×2 (09:00→20:39)
[2016-09-19] MEDS: CLOPIDOGREL 75 MG TAB PO SCH (09:00)
[2016-09-19] MEDS: ASPIRIN 81 MG TAB PO SCH (09:00)
[2016-09-19] MEDS: ENOXAPARIN 100 MG/ML SYG SC SCH ×2 (09:00→20:40)
--- NOTE | 2016-09-19 11:26 | PN ---
Date/Time of Note Date/Time of Note DATE: 09/19/16 TIME: 11:22 Assessment/Plan VTE Prophylaxis VTE Prophylaxis Intervention: other Lines/Catheters IV [facility] Type (from [facility] Saline Lock Urinary Cath still in place: No Assessment/Plan Problems: (1) Fever and chills Status: Acute Comment: I am concerned that this may represent infection. I have discussed with the patient about the rationale for doing the evaluation the risks and benefits of doing the evaluation and the point of doing it. He might allow me to do blood cultures and a CBC but is quite possible he will not ends also possible he may sign out AGAINST MEDICAL ADVICE (2) Homeless single person Status: Acute Comment: This is inaccurate as a diagnosis and was entered into the medical record accidentally. He is not homeless he has an apartment however there issues by getting him into his apartment which our social service staff has been attempting to coordinate (3) ACS (acute coronary syndrome) Status: Acute Comment: He is status post PCI with stenting Subjective 24 Hr Interval Summary Free Text/Dictation Patient reports that he had the hair conditioner on all night. On careful questioning he was having shaking chills. He had fever this morning. Constitutional: chills, febrile Respiratory: no complaints Cardiovascular: no complaints Gastrointestinal: no complaints Exam/Review of Systems Vital Signs Vitals Vital Signs Date Time Temp Pulse Resp B/P Pulse Ox O2 Delivery O2 Flow Rate FiO2 09/19/16 08:57 3.0 09/19/16 08:27 99.9 09/19/16 07:41 81 18 112/76 98 09/18/16 20:00 Nasal Cannula Intake and Output 09/18/16 09/18/16 09/19/16 14:59 22:59 06:59 Intake Total 400 ml 650 ml Output Total 1500 ml 300 ml Balance -1100 ml 350 ml Exam Constitutional: alert Neck: non-tender, supple Respiratory: clear to auscultation, normal air movement Cardiovascular: nl pulses, regular rate and rhythm Results Result Diagram: 09/16/1614 09/16/16 05 Medications Medications Current Medications Levetiracetam (Keppra) 500 mg BID PO Last administered on 09/18/16at 21:02; Admin Dose 500 MG; Start 09/14/16 at 09:00 Potassium Chloride (Klor-Con 20) 20 meq DAILY PO Last administered on 09:29; Admin Dose 20 MEQ; Start 09/14/16 at 09:00 Losartan Potassium (Cozaar) 25 mg DAILY PO Last administered on 09/18/16 09: 30; Admin Dose 25 MG; Start 09/14/16 at 09:00 Furosemide (Lasix) 20 mg DAILY IV Last administered on 09/18/16 09:29; Admin Dose 20 MG; Start 09/14/16 at 09:00 Docusate Sodium (Colace) 100 mg BID PO Last administered on 09/18/16 21:02; Admin Dose 100 MG; Start 09/14/16 at 09:00 Ondansetron HCl (Zofran Inj) 4 mg Q6H PRN IV NAUSEA AND/OR VOMITING Last administered on 09/15/16 18:57; Admin Dose 4 MG; Start 09/14/16 at 08:00 Acetaminophen/ Hydrocodone Bitart ([place] (5/325)) 1 tab Q6H PRN PO pain Last administered on 09/15/16 19:00; Admin Dose 1 TAB; Start 09/14/16 at 08:00 Atorvastatin Calcium (Lipitor) 40 mg HS PO Last administered on 09/17/16 21: 18; Admin Dose 40 MG; Start 09/14/16 at 21:00 Aspirin (Aspirin) 81 mg DAILY PO Last administered on 09/18/16 09:29; Admin Dose 81 MG; Start 09/15/16 at 09:00 Pantoprazole (Protonix Tab) 40 mg DAILY@06 PO Last administered on 09/19/16t 05: 15; Admin Dose 40 MG; Start 09/15/16 at 06:00 Al Hydrox/Mg Hydrox/Simethicone (Mag-Al Plus) 30 ml Q6H PRN PO GASTROINTESTINAL UPSET Last administered on 09/15/16 10:07; Admin Dose 30 ML; Start 09/15/16 at 10:00 Clopidogrel Bisulfate (plaVIX) 75 mg DAILY PO Last administered on 09/18/16 09:29; Admin Dose 75 MG; Start 09/16/16 at 09:00 Zolpidem Tartrate (Ambien) 5 mg HS PRN PO INSOMNIA; Start 09/15/16 at 23:30 Enoxaparin Sodium (Lovenox) 90 mg BID SC Last administered on 09/18/16at 09:31 ; Admin Dose 90 MG; Start 09/16/16 at 09:00 Carvedilol (Coreg) 6.25 mg BID PO Last administered on 09/18/16at 09:30; Admin Dose 6.25 MG; Start 09/17/16 at 09:00 Diphenhydramine HCl (Benadryl) 25 mg Q8H PRN PO ITCHING Last administered on 05:12; Admin Dose 25 MG; Start 09/17/16 at 02:00 Triamcinolone Acetonide (Kenalog 0.5% Cr) 1 applic BID PRN TOP ITCHING Last administered on 09/18/16at 21:02; Admin Dose 1 APPLIC; Start 09/17/16 at 02:00 Guaifenesin (Robitussin Liquid Cup) 200 mg Q6 PRN PO COUGH Last administered on 09/19/16 05:15; Admin Dose 200 MG; Start 09/18/16 at 22:30 Acetaminophen (Tylenol Tab) 650 mg Q8 PRN PO PAIN AND OR ELEVATED TEMP; Start 09/19/16 at 09:00 CORY ENGLISH MD Sep 19, 2016 11:25
[2016-09-19] MEDS: ACETAMINOPHEN 325 MG TAB PO PRN ×2 (12:36→20:39)
[2016-09-19 12:46] VITALS: BP 112/89; PULSE 60; RESP 20
[2016-09-19] MEDS ORDERED: LEVOFLOXACIN 750 MG TABLET PO ONE (14:30)
[2016-09-19] MEDS ORDERED: LEVOFLOXACIN 750 MG TABLET ONE (15:46)
[2016-09-19] MEDS: ATORVASTATIN 40 MG TAB PO SCH (20:40)
[2016-09-19] MEDS: TRIAMCINOLONE ACET 0.5% 15 GM CR TOP PRN (20:46)
[2016-09-19 20:48] VITALS: BP 140/92; RESP 20
[2016-09-19] MEDS ORDERED: MAGNESIUM CITRATE 300 ML BTL PO ONE (21:30)
[2016-09-20] MEDS: PANTOPRAZOLE (EC) 40 MG TAB PO SCH (05:18)
[2016-09-20] MEDS: LEVOFLOXACIN 750 MG TABLET PO SCH (05:18)
[2016-09-20] MEDS: DIPHENHYDRAMINE 25 MG CAP PO PRN (05:18)
[2016-09-20] MEDS: ACETAMINOPHEN 325 MG TAB PO PRN ×2 (05:18→18:58)
[2016-09-20] MEDS: GUAIFENESIN 20 MG/ML 5ML CUP PO PRN (05:19)
[2016-09-20 08:07] VITALS: BP 130/88; RESP 18
[2016-09-20] MEDS: FUROSEMIDE 20 MG INJ IV SCH (09:00)
[2016-09-20] MEDS: POTASSIUM CHLORIDE (SR) 20 MEQ TAB PO SCH (09:00)
[2016-09-20] MEDS: LOSARTAN 25 MG TAB PO SCH (09:00)
[2016-09-20] MEDS: CLOPIDOGREL 75 MG TAB PO SCH (09:00)
[2016-09-20] MEDS: DOCUSATE SODIUM 100 MG CAP PO SCH ×2 (09:00→21:08)
[2016-09-20] MEDS: ENOXAPARIN 100 MG/ML SYG SC SCH ×2 (09:00→21:10)
[2016-09-20] MEDS: LEVETIRACETAM 500 MG TAB PO SCH ×2 (09:00→21:09)
[2016-09-20] MEDS: ASPIRIN 81 MG TAB PO SCH (09:00)
--- NOTE | 2016-09-20 15:57 | CONS ---
Date/Time of Note Date/Time of Note DATE: 09/20/16 TIME: 15:54 Assessment/Plan Assessment/Plan Additional Assessment/Plan Non-ST elevation [place] Acute decompensated systolic congestive heart failure Cardiomyopathy with ejection fraction 30% Atrial fibrillation, noncompliant with anticoagulation History of CVA with left hemiparesis Active Methamphetamine use DNR Medication noncompliance -Patient with shortness of breath today and in discussion with the nurse, hypoxic when off oxygen. Currently on 3 L, patient satting 100%. He does have mild crackles at the right base. Would obtain chest x-ray, one dose of IV Lasix. Management of this patient is extremely difficult given he continuously refuses medications and therapy options. I have had extensive discussions with the patient including again today on the importance of compliance. Consultation Date/Type/Reason Admit Date/Time Sep 14, 2016 at 05:16 Type of Consultation: cv 24 HR Interval Summary Free Text/Dictation Patient complaining of shortness of breath and anxiety, denies chest pain or dizziness Exam/Review of Systems Vital Signs Vitals Vital Signs Date Time Temp Pulse Resp B/P Pulse Ox O2 Delivery O2 Flow Rate FiO2 09/20/16 08:07 99.1 101 18 130/88 93 09/20/16 07:55 3.0 09/19/16 20:00 Nasal Cannula Intake and Output 09/19/16 09/19/16 09/20/16 15:00 23:00 07:00 Intake Total 400 ml 500 ml Output Total 450 ml Balance 400 ml 50 ml Exam Dyspneic at times, anxious Constitutional: alert, oriented Head: normocephalic Neck: supple Respiratory: other (course breath sounds bilaterally with crackles at the right base, no wheezing) Cardiovascular: irregular rhythm, other (S1-S2 heard) Gastrointestinal: bowel sounds, non-tender, soft Extremities: edema (trace) Results Result Diagram: 09/16/16 0514 09/16/16 0511 Medications Medications Current Medications Levetiracetam (Keppra) 500 mg BID PO Last administered on 09/19/16t 20:39; Admin Dose 500 MG; Start 09/14/16 at 09:00 Potassium Chloride (Klor-Con 20) 20 meq DAILY PO Last administered on at 09:29; Admin Dose 20 MEQ; Start 09/14/16 at 09:00 Losartan Potassium (Cozaar) 25 mg DAILY PO Last administered on 09/18/16 09: 30; Admin Dose 25 MG; Start 09/14/16 at 09:00 Furosemide (Lasix) 20 mg DAILY IV Last administered on 09/18/16 09:29; Admin Dose 20 MG; Start 09/14/16 at 09:00 Docusate Sodium (Colace) 100 mg BID PO Last administered on 09/19/16 20:39; Admin Dose 100 MG; Start 09/14/16 at 09:00 Ondansetron HCl (Zofran Inj) 4 mg Q6H PRN IV NAUSEA AND/OR VOMITING Last administered on 09/15/16 18:57; Admin Dose 4 MG; Start 09/14/16 at 08:00 Acetaminophen/ Hydrocodone Bitart ([place] (5/325)) 1 tab Q6H PRN PO pain Last administered on 09/15/16 19:00; Admin Dose 1 TAB; Start 09/14/16 at 08:00 Atorvastatin Calcium (Lipitor) 40 mg HS PO Last administered on 09/17/16 21: 18; Admin Dose 40 MG; Start 09/14/16 at 21:00 Aspirin (Aspirin) 81 mg DAILY PO Last administered on 09/18/16 09:29; Admin Dose 81 MG; Start 09/15/16 at 09:00 Pantoprazole (Protonix Tab) 40 mg DAILY@06 PO Last administered on 09/20/16 05: 18; Admin Dose 40 MG; Start 09/15/16 at 06:00 Al Hydrox/Mg Hydrox/Simethicone (Mag-Al Plus) 30 ml Q6H PRN PO GASTROINTESTINAL UPSET Last administered on 09/15/16at 10:07; Admin Dose 30 ML; Start 09/15/16 at 10:00 Clopidogrel Bisulfate (plaVIX) 75 mg DAILY PO Last administered on 09/18/16 09:29; Admin Dose 75 MG; Start 09/16/16 at 09:00 Zolpidem Tartrate (Ambien) 5 mg HS PRN PO INSOMNIA; Start 09/15/16 at 23:30 Enoxaparin Sodium (Lovenox) 90 mg BID SC Last administered on 09/19/16 20:40; Admin Dose 90 MG; Start 09/16/16 at 09:00 Carvedilol (Coreg) 6.25 mg BID PO Last administered on 09/18/16at 09:30; Admin Dose 6.25 MG; Start 09/17/16 at 09:00 Diphenhydramine HCl (Benadryl) 25 mg Q8H PRN PO ITCHING Last administered on 05:18; Admin Dose 25 MG; Start 09/17/16 at 02:00 Triamcinolone Acetonide (Kenalog 0.5% Cr) 1 applic BID PRN TOP ITCHING Last administered on 09/19/16 20:46; Admin Dose 1 APPLIC; Start 09/17/16 at 02:00 Guaifenesin (Robitussin Liquid Cup) 200 mg Q6 PRN PO COUGH Last administered on 09/20/16 05:19; Admin Dose 200 MG; Start 09/18/16 at 22:30 Acetaminophen (Tylenol Tab) 650 mg Q8 PRN PO PAIN AND OR ELEVATED TEMP Last administered on 09/20/16 05:18; Admin Dose 650 MG; Start 09/19/16 at 09:00 Levofloxacin (Levaquin) 750 mg DAILY@06 PO Last administered on 09/20/16 05:18 ; Admin Dose 750 MG; Start 09/20/16 at 06:00 Ipratropium [place] (Atrovent 0.02% (Neb)) 0.5 mg Q3 PRN HHN SHORTNESS OF BREATH; Start 09/20/16 at 15:30 Louis Montalvo DO Sep 20, 2016 15:57
[2016-09-20] MEDS ORDERED: FUROSEMIDE 20 MG INJ IV ONE (16:00)
[2016-09-20] MEDS: LEVALBUTEROL (NEB) 0.63 MG/3 ML AMP HHN PRN ×2 (16:02→19:54)
[2016-09-20] MEDS: IPRATROPIUM (NEB) 0.5 MG/2.5 ML AMP HHN PRN ×2 (16:02→19:54)
--- NOTE | 2016-09-20 16:28 | RADRPT ---
PROCEDURE: XR Chest. CLINICAL INDICATION: Shortness of breath. TECHNIQUE: Single frontal view of the chest was obtained. COMPARISON: 09/14/2016 FINDINGS: There is cardiomegaly. There is atherosclerotic unfolding of the thoracic aorta. Pulmonary vascula ture appears mildly prominent. There is mild interstitial edema. No focal airspace consolidation i s seen. Right subclavian dual chamber pacemaker appears unchanged. Osseous structures appear unrem arkable. No significant change in mild congestive heart failure. IMPRESSION: 1. No evidence for active cardiopulmonary disease. 2. No focal airspace process identified. 3. Aortic atherosclerosis. RPTAT: [facility] Physician Jaswant Date Time Electronically viewed and signed by Physician Jaswant on 09/20/2016 16:28 /
[2016-09-20 17:00] LABS: AADO2 Arterial 58.8 mmHg (7.0-24.0); Allen Test ACCEPTAB; Arterial Base Excess 1.7 mmol/L (-3.0-3); Arterial COHb 0.5 % (0.0-3.0); Arterial Fraction of Oxyhgb 88.1 % (93.0-99.0); Arterial HCO3 24.5 mmol/L (22.0-26.0); Arterial MetHb 0.1 % (0.0-1.5); Arterial Total Hemglobin 14.2 g/dl (12.0-18.0); MODE ROOM AIR
[2016-09-20] MEDS: LORAZEPAM 0.5 MG TAB PO PRN (18:59)
[2016-09-20] MEDS: ATORVASTATIN 40 MG TAB PO SCH (21:09)
[2016-09-20 21:11] VITALS: BP 141/82; RESP 18
--- NOTE | 2016-09-20 23:17 | PN ---
Date/Time of Note Date/Time of Note DATE: 09/20/16 TIME: 23:17 Assessment/Plan VTE Prophylaxis VTE Prophylaxis Intervention: SCD's Lines/Catheters IV [facility] Saline Lock Urinary Cath still in place: No Assessment/Plan Assessment/Plan 1. Non-ST myocardial infarction. Cardiology has been consulted. 2D echocardiogram demonstrated ejection fraction of 30% with diastolic dysfunction. Continue aspirin, Lovenox and Lipitor. Metoprolol has been placed on hold secondary to hypotension. Status post Left heart catheterization, Right and left coronary angiogram, Angioplasty of the distal LAD with a 2.0 balloon and manual thrombectomy of the distal circumflex. Continue to monitor in ICU and aggressive medical management 2. Essential hypertension, at this time patient is hypotensive, we will place parameters for blood pressure medications 3. History of cerebrovascular accident. Continue aspirin and statin. Continue to monitor patient's blood pressure. 4. History of atrial fibrillation. Hold Lopressor. Status post Lovenox. At this time, we will hold warfarin. 5. Seizure disorder. No acute event. Continue Keppra. 6. Congestive heart failure. 2D echocardiogram with ejection fraction 30%, losartan and Lasix with caution secondary to hypotension. 7. For deep venous thrombosis prophylaxis, on Lovenox. 8. For gastrointestinal prophylaxis, we will place the patient on Protonix. Exam/Review of Systems Vital Signs Vitals Vital Signs Date Time Temp Pulse Resp B/P Pulse Ox O2 Delivery O2 Flow Rate FiO2 09/20/16 21:11 100.2 104 18 141/82 96 09/20/16 20:11 Nasal Cannula 4.0 Intake and Output 09/19/16 09/19/16 09/20/16 15:00 23:00 07:00 Intake Total 400 ml 500 ml Output Total 450 ml Balance 400 ml 50 ml Exam General: The patient is well-developed, Not in acute distress. HEENT: Atraumatic, normocephalic. The pupils are equal and round . Neck: Supple with full range of motion. Chest: Normal expansion of the thorax during inspiration Lungs: Clear to auscultation bilaterally Heart: Normal S1-S2, Regular rhythm and rate. Abdomen: Soft , nontender, nondistended , bowel sounds are present. Extremities: Left hand flexion with decreased range of motion. Left upper and lower extremity weakness 4/5, no edema no cyanosis Neurologic: Normal mental status,The patient is awake, alert and oriented . Results Result Diagram: 09/16/16 0514 09/16/16 0511 Results 24 hrs Laboratory Tests Test 09/20/16 15:30 Arterial Blood HCO3 24.5 Arterial Blood Base Excess 1.7 Arterial Blood Oxygen Saturation 88.6 L Ernie Test ACCEPTAB Arterial Blood Gas Puncture Site Right Radial Arterial Blood Carboxyhemoglobin 0.5 Arterial Blood Date Drawn 09/20/2016 4:50:36 PM Arterial Blood Methemoglobin 0.1 Arterial Blood pCO2 (Temp correct) 32.9 L Arterial Blood pH (Temp corrected) 7.489 H Arterial Blood pO2 (Temp corrected) 51.5 *L Blood Gas A-a O2 Differential 58.8 H Blood Gas Critical Value Read Back Melinda MOORE RN Blood Gas Modality ROOM AIR Blood Gas Notified Time 09/20/2016 4:59:33 PM Blood Gas Notified Whom ArchanaAUTOMATION MECHANIC Blood Gas Specimen Source Blood arterial Blood Gas Temperature 37.0 FiO2 21.0 Oxyhemoglobin Percent 88.1 L Total Hemoglobin 14.2 Medications Medications Current Medications Levetiracetam (Keppra) 500 mg BID PO Last administered on 09/20/16 21:09; Admin Dose 500 MG; Start 09/14/16 at 09:00 Potassium Chloride (Klor-Con 20) 20 meq DAILY PO Last administered on 09:29; Admin Dose 20 MEQ; Start 09/14/16 at 09:00 Losartan Potassium (Cozaar) 25 mg DAILY PO Last administered on 09/18/16 09: 30; Admin Dose 25 MG; Start 09/14/16 at 09:00 Furosemide (Lasix) 20 mg DAILY IV Last administered on 09/18/16 09:29; Admin Dose 20 MG; Start 09/14/16 at 09:00 Docusate Sodium (Colace) 100 mg BID PO Last administered on 09/20/16 21:08; Admin Dose 100 MG; Start 09/14/16 at 09:00 Ondansetron HCl (Zofran Inj) 4 mg Q6H PRN IV NAUSEA AND/OR VOMITING Last administered on 09/15/16 18:57; Admin Dose 4 MG; Start 09/14/16 at 08:00 Acetaminophen/ Hydrocodone Bitart ([place] (5/325)) 1 tab Q6H PRN PO pain Last administered on 09/15/16 19:00; Admin Dose 1 TAB; Start 09/14/16 at 08:00 Atorvastatin Calcium (Lipitor) 40 mg HS PO Last administered on 09/20/16 21:09 ; Admin Dose 40 MG; Start 09/14/16 at 21:00 Aspirin (Aspirin) 81 mg DAILY PO Last administered on 09/18/16 09:29; Admin Dose 81 MG; Start 09/15/16 at 09:00 Pantoprazole (Protonix Tab) 40 mg DAILY@06 PO Last administered on 09/20/16 05: 18; Admin Dose 40 MG; Start 09/15/16 at 06:00 Al Hydrox/Mg Hydrox/Simethicone (Mag-Al Plus) 30 ml Q6H PRN PO GASTROINTESTINAL UPSET Last administered on 09/15/16at 10:07; Admin Dose 30 ML; Start 09/15/16 at 10:00 Clopidogrel Bisulfate (plaVIX) 75 mg DAILY PO Last administered on 09/18/16at 09:29; Admin Dose 75 MG; Start 09/16/16 at 09:00 Zolpidem Tartrate (Ambien) 5 mg HS PRN PO INSOMNIA; Start 09/15/16 at 23:30 Enoxaparin Sodium (Lovenox) 90 mg BID SC Last administered on 09/20/16 21:10; Admin Dose 90 MG; Start 09/16/16 at 09:00 Carvedilol (Coreg) 6.25 mg BID PO Last administered on 09/20/16 21:11; Admin Dose 6.25 MG; Start 09/17/16 at 09:00 Diphenhydramine HCl (Benadryl) 25 mg Q8H PRN PO ITCHING Last administered on 05:18; Admin Dose 25 MG; Start 09/17/16 at 02:00 Triamcinolone Acetonide (Kenalog 0.5% Cr) 1 applic BID PRN TOP ITCHING Last administered on 09/19/16 20:46; Admin Dose 1 APPLIC; Start 09/17/16 at 02:00 Guaifenesin (Robitussin Liquid Cup) 200 mg Q6 PRN PO COUGH Last administered on 09/20/16 05:19; Admin Dose 200 MG; Start 09/18/16 at 22:30 Acetaminophen (Tylenol Tab) 650 mg Q8 PRN PO PAIN AND OR ELEVATED TEMP Last administered on 09/20/16 18:58; Admin Dose 650 MG; Start 09/19/16 at 09:00 Levofloxacin (Levaquin) 750 mg DAILY@06 PO Last administered on 09/20/16 05:18 ; Admin Dose 750 MG; Start 09/20/16 at 06:00 Ipratropium [place] (Atrovent 0.02% (Neb)) 0.5 mg Q3 PRN HHN SHORTNESS OF BREATH Last administered on 09/20/16 19:54; Admin Dose 0.5 MG; Start 09/20/16 at 15:30 Lorazepam (Ativan) 0.5 mg QID PRN PO ANXIETY Last administered on 09/20/16 18: 59; Admin Dose 0.5 MG; Start 09/20/16 at 17:00 BONIFACIO GRIMM MD Sep 20, 2016 23:17
[2016-09-20 23:30] VITALS: PULSE 100
[2016-09-21] MEDS: IPRATROPIUM (NEB) 0.5 MG/2.5 ML AMP HHN PRN (04:51)
[2016-09-21] MEDS: LEVALBUTEROL (NEB) 0.63 MG/3 ML AMP HHN PRN (04:51)
[2016-09-21] MEDS: LEVOFLOXACIN 750 MG TABLET PO SCH (05:52)
[2016-09-21] MEDS: PANTOPRAZOLE (EC) 40 MG TAB PO SCH (05:52)
[2016-09-21 07:57] VITALS: BP 114/74; RESP 18
[2016-09-21 08:40] LABS: ADD UMIC YES; URINE BILIRUBIN (Dip) 1+ (NEGATIVE); URINE BLOOD (Dip) 3+ (NEGATIVE); URINE COLOR YELLOW (YELLOW); URINE GLUCOSE (Dip) NEGATIVE (NEGATIVE); URINE KETONES (Dip) NEGATIVE (NEGATIVE); URINE LEUKOCYTE ESTERASE (Dip) NEGATIVE (NEGATIVE); URINE NITRITE (Dip) NEGATIVE (NEGATIVE); URINE TOTAL PROTEIN (Dip) 1+ (NEGATIVE); URINE UROBILINOGEN (Dip) >8.0 E.U./dL (0.1-1.0)
[2016-09-21 08:56] LABS: BACTERIA,URINE RARE; MUCUS,URINE FEW; URINE RBCS 25-50 /HPF (0)
[2016-09-21] MEDS: LOSARTAN 25 MG TAB PO SCH (09:06)
[2016-09-21] MEDS: LEVETIRACETAM 500 MG TAB PO SCH ×2 (09:06→20:55)
[2016-09-21] MEDS: ASPIRIN 81 MG TAB PO SCH (09:06)
[2016-09-21] MEDS: CLOPIDOGREL 75 MG TAB PO SCH (09:06)
[2016-09-21] MEDS: DOCUSATE SODIUM 100 MG CAP PO SCH ×2 (09:06→20:55)
[2016-09-21] MEDS: ACETAMINOPHEN 325 MG TAB PO PRN (09:07)
[2016-09-21] MEDS: POTASSIUM CHLORIDE (SR) 20 MEQ TAB PO SCH (09:07)
[2016-09-21] MEDS: FUROSEMIDE 20 MG INJ IV SCH (09:07)
[2016-09-21] MEDS: ENOXAPARIN 100 MG/ML SYG SC SCH (09:08)
--- NOTE | 2016-09-21 14:27 | CONS ---
Date/Time of Note Date/Time of Note DATE: 09/21/16 TIME: 14:24 Assessment/Plan Assessment/Plan Additional Assessment/Plan Non-ST elevation [place] Acute decompensated systolic congestive heart failure Cardiomyopathy with ejection fraction 30% Atrial fibrillation, noncompliant with anticoagulation History of CVA with left hemiparesis Active Methamphetamine use DNR Medication noncompliance -Patient with chest x-ray yesterday with no significant congestion, denies shortness of breath or chest pain at the current time. Given plan for discharge , would switch Lovenox to eliquis, continue Plavix, statin and beta iraida. Encouraged again importance of medication compliance and cessation of illicit drug use. Consultation Date/Type/Reason Admit Date/Time Sep 14, 2016 at 05:16 Type of Consultation: cv 24 HR Interval Summary Free Text/Dictation Patient denies any chest pain or shortness of breath or palpitations Exam/Review of Systems Vital Signs Vitals Vital Signs Date Time Temp Pulse Resp B/P Pulse Ox O2 Delivery O2 Flow Rate FiO2 09/21/16 13:53 96 Room Air 09/21/16 07:57 101.0 100 18 114/74 09/21/16 04:52 4.0 Intake and Output 09/20/16 09/20/16 09/21/16 15:00 23:00 07:00 Intake Total 680 ml 920 ml Output Total 450 ml 900 ml Balance 230 ml 20 ml Exam Sleeping but arousable, no apparent distress, no dyspnea with speaking Head: normocephalic Neck: supple Respiratory: other (course breath sounds bilaterally, no wheezing) Cardiovascular: other (S1 and S2 heard), regular rate and rhythm Gastrointestinal: bowel sounds, non-tender, soft Extremities: edema Results Results 24 hrs Laboratory Tests Test 09/20/16 15:30 Arterial Blood HCO3 24.5 Arterial Blood Base Excess 1.7 Arterial Blood Oxygen Saturation 88.6 L Ernie Test ACCEPTAB Arterial Blood Gas Puncture Site Right Radial Arterial Blood Carboxyhemoglobin 0.5 Arterial Blood Date Drawn 09/20/2016 4:50:36 PM Arterial Blood Methemoglobin 0.1 Arterial Blood pCO2 (Temp correct) 32.9 L Arterial Blood pH (Temp corrected) 7.489 H Arterial Blood pO2 (Temp corrected) 51.5 *L Blood Gas A-a O2 Differential 58.8 H Blood Gas Critical Value Read Back Melinda MOORE RN Blood Gas Modality ROOM AIR Blood Gas Notified Time 09/20/2016 4:59:33 PM Blood Gas Notified Whom KENDALL Blood Gas Specimen Source Blood arterial Blood Gas Temperature 37.0 FiO2 21.0 Oxyhemoglobin Percent 88.1 L Total Hemoglobin 14.2 Medications Medications Current Medications Levetiracetam (Keppra) 500 mg BID PO Last administered on 09/21/16 09:06; Admin Dose 500 MG; Start 09/14/16 at 09:00 Potassium Chloride (Klor-Con 20) 20 meq DAILY PO Last administered on 09/21/16 09:07; Admin Dose 20 MEQ; Start 09/14/16 at 09:00 Losartan Potassium (Cozaar) 25 mg DAILY PO Last administered on 09/21/16 09:06 ; Admin Dose 25 MG; Start 09/14/16 at 09:00 Docusate Sodium (Colace) 100 mg BID PO Last administered on 09/21/16 09:06; Admin Dose 100 MG; Start 09/14/16 at 09:00 Ondansetron HCl (Zofran Inj) 4 mg Q6H PRN IV NAUSEA AND/OR VOMITING Last administered on 09/15/16 18:57; Admin Dose 4 MG; Start 09/14/16 at 08:00 Acetaminophen/ Hydrocodone Bitart ([place] (5/325)) 1 tab Q6H PRN PO pain Last administered on 09/15/16at 19:00; Admin Dose 1 TAB; Start 09/14/16 at 08:00 Atorvastatin Calcium (Lipitor) 40 mg HS PO Last administered on 09/20/16 21:09 ; Admin Dose 40 MG; Start 09/14/16 at 21:00 Aspirin (Aspirin) 81 mg DAILY PO Last administered on 09/21/16 09:06; Admin Dose 81 MG; Start 09/15/16 at 09:00 Pantoprazole (Protonix Tab) 40 mg DAILY@06 PO Last administered on 09/21/16 05: 52; Admin Dose 40 MG; Start 09/15/16 at 06:00 Al Hydrox/Mg Hydrox/Simethicone (Mag-Al Plus) 30 ml Q6H PRN PO GASTROINTESTINAL UPSET Last administered on 09/15/16at 10:07; Admin Dose 30 ML; Start 09/15/16 at 10:00 Clopidogrel Bisulfate (plaVIX) 75 mg DAILY PO Last administered on 09/21/16 09: 06; Admin Dose 75 MG; Start 09/16/16 at 09:00 Zolpidem Tartrate (Ambien) 5 mg HS PRN PO INSOMNIA; Start 09/15/16 at 23:30 Carvedilol (Coreg) 6.25 mg BID PO Last administered on 09/21/16 09:07; Admin Dose 6.25 MG; Start 09/17/16 at 09:00 Diphenhydramine HCl (Benadryl) 25 mg Q8H PRN PO ITCHING Last administered on 05:18; Admin Dose 25 MG; Start 09/17/16 at 02:00 Triamcinolone Acetonide (Kenalog 0.5% Cr) 1 applic BID PRN TOP ITCHING Last administered on 09/19/16 20:46; Admin Dose 1 APPLIC; Start 09/17/16 at 02:00 Guaifenesin (Robitussin Liquid Cup) 200 mg Q6 PRN PO COUGH Last administered on 09/20/16 05:19; Admin Dose 200 MG; Start 09/18/16 at 22:30 Acetaminophen (Tylenol Tab) 650 mg Q8 PRN PO PAIN AND OR ELEVATED TEMP Last administered on 09/21/16 09:07; Admin Dose 650 MG; Start 09/19/16 at 09:00 Levofloxacin (Levaquin) 750 mg DAILY@06 PO Last administered on 09/21/16 05:52 ; Admin Dose 750 MG; Start 09/20/16 at 06:00 Ipratropium [place] (Atrovent 0.02% (Neb)) 0.5 mg Q3 PRN HHN SHORTNESS OF BREATH Last administered on 09/21/16 04:51; Admin Dose 0.5 MG; Start 09/20/16 at 15:30 Lorazepam (Ativan) 0.5 mg QID PRN PO ANXIETY Last administered on 09/20/16 18: 59; Admin Dose 0.5 MG; Start 09/20/16 at 17:00 Apixaban (Eliquis) 5 mg BID PO ; Start 09/21/16 at 21:00 Furosemide (Lasix) 20 mg DAILY PO ; Start 09/22/16 at 09:00 Louis Montalvo 3, 2017 14:26
[2016-09-21 16:05] LABS: ICTOTEST NEGATIVE (NEGATIVE)
[2016-09-21] MEDS: APIXABAN 5 MG TABLET PO SCH (20:55)
[2016-09-21] MEDS: ATORVASTATIN 40 MG TAB PO SCH (20:55)
[2016-09-21 21:25] VITALS: BP 98/63; RESP 18
--- NOTE | 2016-09-21 23:58 | PN ---
Date/Time of Note Date/Time of Note DATE: 09/21/16 TIME: 23:58 Assessment/Plan Lines/Catheters IV Catheter Type (from Nrs): Saline Lock Urinary Cath still in place: No Exam/Review of Systems Vital Signs Vitals Vital Signs Date Time Temp Pulse Resp B/P Pulse Ox O2 Delivery O2 Flow Rate FiO2 09/21/16 21:25 98.0 63 18 98/63 99 09/21/16 13:53 Room Air 09/21/16 04:52 4.0 Intake and Output 09/20/16 09/20/16 09/21/16 15:00 23:00 07:00 Intake Total 680 ml 920 ml Output Total 450 ml 900 ml Balance 230 ml 20 ml Medications Medications Current Medications Levetiracetam (Keppra) 500 mg BID PO Last administered on 09/21/16 20:55; Admin Dose 500 MG; Start 09/14/16 at 09:00 Potassium Chloride (Klor-Con 20) 20 meq DAILY PO Last administered on 09/21/16 09:07; Admin Dose 20 MEQ; Start 09/14/16 at 09:00 Losartan Potassium (Cozaar) 25 mg DAILY PO Last administered on 09/21/16 09:06 ; Admin Dose 25 MG; Start 09/14/16 at 09:00 Docusate Sodium (Colace) 100 mg BID PO Last administered on 09/21/16 20:55; Admin Dose 100 MG; Start 09/14/16 at 09:00 Ondansetron HCl (Zofran Inj) 4 mg Q6H PRN IV NAUSEA AND/OR VOMITING Last administered on 09/15/16at 18:57; Admin Dose 4 MG; Start 09/14/16 at 08:00 Acetaminophen/ Hydrocodone Bitart ([place] (5/325)) 1 tab Q6H PRN PO pain Last administered on 09/15/16at 19:00; Admin Dose 1 TAB; Start 09/14/16 at 08:00 Atorvastatin Calcium (Lipitor) 40 mg HS PO Last administered on 09/21/16 20:55 ; Admin Dose 40 MG; Start 09/14/16 at 21:00 Pantoprazole (Protonix Tab) 40 mg DAILY@06 PO Last administered on 09/21/16 05: 52; Admin Dose 40 MG; Start 09/15/16 at 06:00 Al Hydrox/Mg Hydrox/Simethicone (Mag-Al Plus) 30 ml Q6H PRN PO GASTROINTESTINAL UPSET Last administered on 09/15/16at 10:07; Admin Dose 30 ML; Start 09/15/16 at 10:00 Clopidogrel Bisulfate (plaVIX) 75 mg DAILY PO Last administered on 09/21/16 09: 06; Admin Dose 75 MG; Start 09/16/16 at 09:00 Zolpidem Tartrate (Ambien) 5 mg HS PRN PO INSOMNIA; Start 09/15/16 at 23:30 Carvedilol (Coreg) 6.25 mg BID PO Last administered on 09/21/16 09:07; Admin Dose 6.25 MG; Start 09/17/16 at 09:00 Diphenhydramine HCl (Benadryl) 25 mg Q8H PRN PO ITCHING Last administered on 05:18; Admin Dose 25 MG; Start 09/17/16 at 02:00 Triamcinolone Acetonide (Kenalog 0.5% Cr) 1 applic BID PRN TOP ITCHING Last administered on 09/19/16 20:46; Admin Dose 1 APPLIC; Start 09/17/16 at 02:00 Guaifenesin (Robitussin Liquid Cup) 200 mg Q6 PRN PO COUGH Last administered on 09/20/16 05:19; Admin Dose 200 MG; Start 09/18/16 at 22:30 Acetaminophen (Tylenol Tab) 650 mg Q8 PRN PO PAIN AND OR ELEVATED TEMP Last administered on 09/21/16 09:07; Admin Dose 650 MG; Start 09/19/16 at 09:00 Levofloxacin (Levaquin) 750 mg DAILY@06 PO Last administered on 09/21/16 05:52 ; Admin Dose 750 MG; Start 09/20/16 at 06:00 Ipratropium [place] (Atrovent 0.02% (Neb)) 0.5 mg Q3 PRN HHN SHORTNESS OF BREATH Last administered on 09/21/16 04:51; Admin Dose 0.5 MG; Start 09/20/16 at 15:30 Lorazepam (Ativan) 0.5 mg QID PRN PO ANXIETY Last administered on 09/20/16 18: 59; Admin Dose 0.5 MG; Start 09/20/16 at 17:00 Apixaban (Eliquis) 5 mg BID PO Last administered on 09/21/16t 20:55; Admin Dose 5 MG; Start 09/21/16 at 21:00 Furosemide (Lasix) 20 mg DAILY PO ; Start 09/22/16 at 09:00 BONIFACIO GRIMM MD Sep 21, 2016 23:58
[2016-09-22] MEDS: IPRATROPIUM (NEB) 0.5 MG/2.5 ML AMP HHN PRN ×2 (00:39→05:03)
[2016-09-22] MEDS: LEVALBUTEROL (NEB) 0.63 MG/3 ML AMP HHN PRN ×2 (00:39→05:03)
[2016-09-22] MEDS: LEVOFLOXACIN 750 MG TABLET PO SCH (05:49)
[2016-09-22] MEDS: PANTOPRAZOLE (EC) 40 MG TAB PO SCH (05:49)
[2016-09-22] MEDS: DIPHENHYDRAMINE 25 MG CAP PO PRN (05:52)
[2016-09-22 07:36] VITALS: BP 122/83; RESP 16
[2016-09-22] MEDS ORDERED: FUROSEMIDE 20 MG TAB PO SCH (09:00)
[2016-09-22] MEDS: CLOPIDOGREL 75 MG TAB PO SCH (09:55)
[2016-09-22] MEDS: APIXABAN 5 MG TABLET PO SCH (09:55)
[2016-09-22] MEDS: DOCUSATE SODIUM 100 MG CAP PO SCH (09:55)
[2016-09-22] MEDS: LOSARTAN 25 MG TAB PO SCH (09:55)
[2016-09-22] MEDS: POTASSIUM CHLORIDE (SR) 20 MEQ TAB PO SCH (09:56)
[2016-09-22] MEDS: LEVETIRACETAM 500 MG TAB PO SCH (09:56)
--- NOTE | 2016-09-22 13:51 | CONS ---
Date/Time of Note Date/Time of Note DATE: 09/22/16 TIME: 13:49 Assessment/Plan Assessment/Plan Additional Assessment/Plan Non-ST elevation PA Acute decompensated systolic congestive heart failure Cardiomyopathy with ejection fraction 30% Atrial fibrillation, noncompliant with anticoagulation History of CVA with left hemiparesis Active Methamphetamine use DNR Medication noncompliance -Patient denies current shortness of breath and is off oxygen. I did have extensive discussion with the patient on multiple occasions on the importance of medication compliance, cessation of illicit drug use. Consultation Date/Type/Reason Admit Date/Time Sep 14, 2016 at 05:16 Type of Consultation: cv 24 HR Interval Summary Free Text/Dictation Denies chest pain, sob Exam/Review of Systems Vital Signs Vitals Vital Signs Date Time Temp Pulse Resp B/P Pulse Ox O2 Delivery O2 Flow Rate FiO2 09/22/16 07:36 98.4 72 16 122/83 94 09/22/16 05:05 21 09/21/16 13:53 Room Air 09/21/16 04:52 4.0 Intake and Output 09/21/16 09/21/16 09/22/16 15:00 23:00 07:00 Intake Total 840 ml 1000 ml Output Total 1450 ml 950 ml Balance -610 ml 50 ml Exam No apparent distress Constitutional: alert, oriented Head: normocephalic Respiratory: other (course breath sounds bilaterally, no wheezing) Cardiovascular: irregular rhythm, other (s1s2) Gastrointestinal: bowel sounds, non-tender, soft Extremities: edema (trace) Medications Medications Current Medications Levetiracetam (Keppra) 500 mg BID PO Last administered on 09/22/16 09:56; Admin Dose 500 MG; Start 09/14/16 at 09:00 Potassium Chloride (Klor-Con 20) 20 meq DAILY PO Last administered on 09/22/16 09:56; Admin Dose 20 MEQ; Start 09/14/16 at 09:00 Losartan Potassium (Cozaar) 25 mg DAILY PO Last administered on 09/22/16 09:55 ; Admin Dose 25 MG; Start 09/14/16 at 09:00 Docusate Sodium (Colace) 100 mg BID PO Last administered on 09/22/16 09:55; Admin Dose 100 MG; Start 09/14/16 at 09:00 Ondansetron HCl (Zofran Inj) 4 mg Q6H PRN IV NAUSEA AND/OR VOMITING Last administered on 09/15/16at 18:57; Admin Dose 4 MG; Start 09/14/16 at 08:00 Acetaminophen/ Hydrocodone Bitart ([place] (5/325)) 1 tab Q6H PRN PO pain Last administered on 09/15/16at 19:00; Admin Dose 1 TAB; Start 09/14/16 at 08:00 Atorvastatin Calcium (Lipitor) 40 mg HS PO Last administered on 09/21/16 20:55 ; Admin Dose 40 MG; Start 09/14/16 at 21:00 Pantoprazole (Protonix Tab) 40 mg DAILY@06 PO Last administered on 09/22/16 05: 49; Admin Dose 40 MG; Start 09/15/16 at 06:00 Al Hydrox/Mg Hydrox/Simethicone (Mag-Al Plus) 30 ml Q6H PRN PO GASTROINTESTINAL UPSET Last administered on 09/15/16at 10:07; Admin Dose 30 ML; Start 09/15/16 at 10:00 Clopidogrel Bisulfate (plaVIX) 75 mg DAILY PO Last administered on 09/22/16 09: 55; Admin Dose 75 MG; Start 09/16/16 at 09:00 Zolpidem Tartrate (Ambien) 5 mg HS PRN PO INSOMNIA; Start 09/15/16 at 23:30 Carvedilol (Coreg) 6.25 mg BID PO Last administered on 09/22/16 09:55; Admin Dose 6.25 MG; Start 09/17/16 at 09:00 Diphenhydramine HCl (Benadryl) 25 mg Q8H PRN PO ITCHING Last administered on 05:52; Admin Dose 25 MG; Start 09/17/16 at 02:00 Triamcinolone Acetonide (Kenalog 0.5% Cr) 1 applic BID PRN TOP ITCHING Last administered on 09/19/16 20:46; Admin Dose 1 APPLIC; Start 09/17/16 at 02:00 Guaifenesin (Robitussin Liquid Cup) 200 mg Q6 PRN PO COUGH Last administered on 09/20/16 05:19; Admin Dose 200 MG; Start 09/18/16 at 22:30 Acetaminophen (Tylenol Tab) 650 mg Q8 PRN PO PAIN AND OR ELEVATED TEMP Last administered on 09/21/16 09:07; Admin Dose 650 MG; Start 09/19/16 at 09:00 Levofloxacin (Levaquin) 750 mg DAILY@06 PO Last administered on 09/22/16 05:49 ; Admin Dose 750 MG; Start 09/20/16 at 06:00 Ipratropium [place] (Atrovent 0.02% (Neb)) 0.5 mg Q3 PRN HHN SHORTNESS OF BREATH Last administered on 09/22/16 05:03; Admin Dose 0.5 MG; Start 09/20/16 at 15:30 Lorazepam (Ativan) 0.5 mg QID PRN PO ANXIETY Last administered on 09/20/16 18: 59; Admin Dose 0.5 MG; Start 09/20/16 at 17:00 Apixaban (Eliquis) 5 mg BID PO Last administered on 09/22/16 09:55; Admin Dose 5 MG; Start 09/21/16 at 21:00 Furosemide (Lasix) 20 mg DAILY PO Last administered on 09/22/16 10:01; Admin Dose 20 MG; Start 09/22/16 at 09:00 Louis Montalvo DO Sep 22, 2016 13:51
[2016-09-22] MEDS: LORAZEPAM 0.5 MG TAB PO PRN (17:08)
[2016-09-22 20:37] VITALS: BP 140/88; RESP 18
== END 2016-09-22 20:51 | disposition home health service (06) | DRG 228 ==
LOC: E/R 03:35 → TEL 05:16 → ICU 09-15 18:49 → MS4 09-16 22:33 → PP2 09-17 19:24
PROVIDERS: ADMIT Family Medicine; ATTEND Family Medicine
PROC: B2111ZZ Fluoroscopy of Multiple Coronary Arteries using Low Osmolar Contrast (ICD-10-PCS; 2016-09-15)
PROC: 4A033BC Measurement of Arterial Pressure, Coronary, Percutaneous Approach (ICD-10-PCS; 2016-09-15)
PROC: 027 Heart and Great Vessels, Dilation (ICD-10-PCS; principal; 2016-09-15 14:30)
PROC: 4A023N7 Measurement of Cardiac Sampling and Pressure, Left Heart, Percutaneous Approach (ICD-10-PCS; 2016-09-15 14:30)
DX: I21.4 Non-ST elevation (NSTEMI) myocardial infarction (principal); I50.23 Acute on chronic systolic (congestive) heart failure; I62.9 Nontraumatic intracranial hemorrhage, unspecified; I42.9 Cardiomyopathy, unspecified; I10 Essential (primary) hypertension; I48.91 Unspecified atrial fibrillation; G40.909 Epilepsy, unspecified, not intractable, without status epilepticus; G81.94 Hemiplegia, unspecified affecting left nondominant side; F15.10 Other stimulant abuse, uncomplicated; I25.5 Ischemic cardiomyopathy; Z91.14 Patient's other noncompliance with medication regimen; Z59.0 Homelessness; Z66 Do not resuscitate
CPT/HCPCS: 36415; 36600; 71010; 80048; 80053; 80061; 80076; 81001; 81003; 82550; 82553; 82803; 83735; 83880; 84443; 84484; 85025; 85610; 85730; 87040; 87081; 87086; 92920; 93005; 93306; 93458; 94640; 94664; 96374; 96375; 96376; J1940; C1725; C1760; C1769; C1887; C1894; G0479; J0583; J1327; J1644; J1650; J2250; J2405; J3010; J3480; Q9967

== ENCOUNTER 2017-01-18 14:27 | Inpatient (IN) | payer OTHER ==
[~2017-01-18] VITALS: Ht 182.9 cm; Wt 94.4 kg
[~2017-01-18 14:27] MED LIST changes: +ASPI81TA3 PO; +ATOR40TA68 PO; +CARV6.2579 PO; +CLOP75TA28 PO; +DOCU-144 PO; +FURO-110 PO; -FURO20TA PO; -IBUP-1542 PO; -LORA10TA3 PO; +LOSA25TA2 PO; +PANT40TA4 PO; +POTA-57 PO; +WARF2.5T PO
[2017-01-18] MEDS ORDERED: IPRATROPIUM (NEB) 0.5 MG/2.5 ML AMP NEB STA (15:26)
[2017-01-18] MEDS ORDERED: ALBUTEROL 0.083% (NEB) 2.5 MG/3 ML AMP NEB STA (15:26)
--- NOTE | 2017-01-18 15:44 | ERA ---
ER Documentation Chief Complaint Date/Time DATE: 01/18/17 TIME: 15:31 Chief Complaint sob and left sided rib pain HPI This is a 56-year-old male with left-sided hemiparesis secondary to his CVA 10 years prior to arrival who presents to the emergency department brought in by EMS from his sniff facility, [facility], with difficulty breathing that has progressively worsened over the past week. The patient indicates he was discharged from [facility] 1 week ago where he had been treated for pneumonia he is not currently on antibiotics. He indicates that he still has had a productive cough since discharge with whitish sputum. Indicates that prior to arrival he indicated he was feeling short of breath. He stated he has had multiple similar episodes over the past several weeks of shortness of breath which improved when he is placed on oxygen. Indicated there was no oxygen available at [facility] and therefore 911 was called for further evaluation. The patient states he has had no fevers no shaking or chills. He also indicated that at the onset of the shortness of breath he developed right-sided chest pain which radiated to the right flank region. Indicates the pain is a sharp shooting pain. He states he has never had any similar episodes in the past and denies any recent trauma. He denies any frequency urgency or dysuria. The patient has a pacemaker and currently is on Eliquis and Plavix for chronic atrial fibrillation. He denies any abdominal pain. He denies any hemoptysis hematemesis or melanotic stools. His primary care physician is Dr. Coppola. The patient states he is a DO NOT RESUSCITATE with comfort measures only ROS All systems reviewed and are negative except as per history of present illness. Medications Home Meds Active Scripts Clopidogrel Bisulfate (Clopidogrel) 75 Mg Tablet, 75 MG PO DAILY, #30 TAB Prov:AVERY CAMPO MD 09/17/16 Atorvastatin* (Atorvastatin*) 40 Mg Tablet, 40 MG PO HS, #30 TAB Prov:AVERY CAMPO MD 09/17/16 Reported Medications Tramadol Hcl* (Ultram*) 50 Mg Tablet, 50 MG PO Q6H Y for PAIN, TAB 01/18/17 Metolazone* (Metolazone*) 2.5 Mg Tablet, 2.5 MG PO DAILY, TAB TAKE M.,W.,F. 01/18/17 Escitalopram Oxalate* (Escitalopram Oxalate*) 10 Mg Tablet, 10 MG PO DAILY, #30 TAB 01/18/17 Levetiracetam* (Levetiracetam*) 500 Mg Tablet, 500 MG PO BID, TAB 07/15/15 Discontinued Scripts Pantoprazole* (Pantoprazole*) 40 Mg Tablet.dr, 40 MG PO DAILY@06, #30 Prov:AVERY CAMPO MD 09/17/16 Docusate Sodium* (Colace*) 100 Mg Capsule, 100 MG PO BID Y for CONSTIPATION, # 45 CAP Prov:AVERY CAMPO MD 09/17/16 Potassium Chloride* (Klor-Con*) 20 Meq Tabsr, 20 MEQ PO DAILY, #30 TAB Prov:AVERY CAMPO MD 09/17/16 Losartan Potassium* (Cozaar*) 25 Mg Tablet, 25 MG PO DAILY, #30 TAB Prov:AVERY CAMPO MD 09/17/16 Carvedilol* (Carvedilol*) 6.25 Mg Tablet, 6.25 MG PO BID, #60 TAB Prov:AVERY CAMPO MD 09/17/16 Aspirin (Aspirin) 81 Mg Chew, 81 MG PO DAILY, #30 TAB Prov:AVERY CAMPO MD 09/17/16 Warfarin Sodium* (Coumadin*) 2.5 Mg Tablet, 2.5 MG PO QPM, #30 TAB Prov:AVERY CAMPO MD 09/17/16 Furosemide* (Lasix*) 20 Mg Tablet, 20 MG PO DAILY, #30 TAB Prov:AVERY CAMPO MD 09/17/16 Allergies Allergies: Coded Allergies: No Known Allergy (Unverified , 01/18/17) PMhx/Soc History of Surgery: Yes (pacemaker,cholecystectomy,COLONOSCOPY) Anesthesia Reaction: No Hx Neurological Disorder: No Hx Respiratory Disorders: No Hx Cardiac Disorders: Yes (HTN,PACEMAKER,CHF.STROKE 2005) Hx Psychiatric Problems: Yes Hx Miscellaneous Medical Probl: Yes (R.ARTHRITIS) Hx Alcohol Use: No Hx Substance Use: No Hx Tobacco Use: No Physical Exam Vitals Vital Signs Date Time Temp Pulse Resp B/P Pulse Ox O2 Delivery O2 Flow Rate FiO2 01/18/17 21:37 98.4 107 26 142/89 97 Nasal Cannula 2.0 01/18/17 18:54 107 22 127/87 97 Nasal Cannula 2.0 01/18/17 15:47 71 28 98 21 01/18/17 14:30 98.4 71 34 135/73 100 Physical Exam Constitutional:Well-developed. Well-nourished. HEENT:Normocephalic. Atraumatic.Pupils were equal round reactive to light. Dry mucous membranes.No tonsillar exudates. Neck: No nuchal rigidity. No lymphadenopathy. No posterior cervical spine tenderness or step-offs. Respiratory: Not using accessory muscles of respiration. Speaking full complete sentences. Mild wheezing bilaterally. Cardiovascular: Irregular irregular rhythm.No murmurs. No rubs were appreciated.S1, S2 normal. Distal pulses are palpable 2+ bilaterally. Reproducible right-sided chest wall tenderness with no crepitus no ecchymosis no flail chest GI: Abdomen was soft. Nontender. Non Distended. No pulsatile abdominal masses or bruits. No rebound. No guarding. Bowel sounds were present and normal. Very mild right CVA tenderness. Muscle skeletal: Left-sided hemiparesis. Patient full range of motion of the right upper extremity and the right lower extremity. No asymmetrical calf tenderness or swelling. Skin: No petechia, no purpura. No lesions on the palms or the soles of the feet. No maculopapular rash. NEURO: Patient was alert, awake, orientated x3.No facial droop. Gait not observed as patient is unable to ambulate due to left-sided paralysis.Speech had regular rate and rhythm. No focal neurological deficits. Result Diagram: 01/18/17 1535 01/18/17 1537 Results 24 hrs Laboratory Tests Test 01/18/17 15:26 01/18/17 15:35 01/18/17 15:37 01/18/17 16:55 Blood Gas Specimen Source Blood arterial Arterial Blood Date Drawn 01/18/2017 4:00:41 PM Arterial Blood pH (Temp corrected) 7.560 Arterial Blood pCO2 (Temp correct) 29.2mmhg Arterial Blood pO2 (Temp corrected) 101.4mmHG Arterial Blood HCO3 25.6mmol/L Arterial Blood Base Excess 4.0mmol/L Arterial Blood Oxygen Saturation 98.1mmHG Ernie Test ACCEPTAB Arterial Blood Gas Puncture Site Right Radial Arterial Blood Carboxyhemoglobin 0.8% Arterial Blood Methemoglobin 0.4% Blood Gas A-a O2 Differential 63.8mmHg Oxyhemoglobin Percent 96.9% Total Hemoglobin 12.1g/dl Blood Gas Temperature 37.0C Blood Gas Modality NASAL CANNULA FiO2 28.0% Blood Gas Critical Value Read Back dr. rao Blood Gas Notified Whom Archana Blood Gas Notified Time 01/18/2017 4:10:11 PM White Blood Count 4.910^3/ul Red Blood Count 4.6310^6/ul Hemoglobin 11.1g/dl Hematocrit 36.0% Mean Corpuscular Volume 77.8fl Mean Corpuscular Hemoglobin 24.0pg Mean Corpuscular Hemoglobin Concent 30.8g/dl Red Cell Distribution Width 19.8% Platelet Count 88265^3/UL Mean Platelet Volume 10.7fl Neutrophils % 56.8% Lymphocytes % 28.7% Monocytes % 11.3% Eosinophils % 1.4% Basophils % 1.4% Nucleated Red Blood Cells % 0.0/100WBC Neutrophils # 2.810^3/ul Lymphocytes # 1.410^3/ul Monocytes # 0.610^3/ul Eosinophils # 0.110^3/ul Basophils # 0.110^3/ul Nucleated Red Blood Cells # 0.010^3/ul Prothrombin Time 18.1Sec Prothrombin Time Ratio 1.4 INR International Normalized Ratio 1.49 Activated Partial Thromboplast Time 33.3Sec Sodium Level 140mmol/L Potassium Level 3.8mmol/L Chloride Level 98mmol/L Carbon Dioxide Level 27mmol/L Anion Gap 19 Blood Urea Nitrogen 17mg/dl Creatinine 0.74mg/dl Glucose Level 83mg/dl Lactic Acid Level 3.0mmol/L Calcium Level 9.2mg/dl Total Bilirubin 2.6mg/dl Direct Bilirubin 0.00mg/dl Indirect Bilirubin 2.6mg/dl Aspartate Amino Transf (AST/SGOT) 32IU/L Alanine Aminotransferase (ALT/SGPT) 33IU/L Alkaline Phosphatase 188IU/L Troponin I 0.048ng/ml Total Protein 6.9g/dl Albumin 3.3g/dl Globulin 3.60g/dl Albumin/Globulin Ratio 0.91 Amylase Level 57U/L Lipase 82U/L Urine Color TORRES Urine Clarity SLIGHTLY CLOUDY Urine pH 5.5 Urine Specific [place] 1.025 Urine Ketones TRACE Urine Nitrite NEGATIVE Urine Bilirubin 2+ Urine Ictotest NEGATIVE Urine Urobilinogen 4.0 E.U./dL Urine Leukocyte Esterase NEGATIVE Urine Microscopic RBC >200/HPF Urine Microscopic WBC 2-5/HPF Urine Squamous Epithelial Cells RARE Urine Bacteria MANY Urine Hemoglobin 3+ Urine Glucose NEGATIVE% Urine Total Protein 2+ Test 01/18/17 21:20 Lactic Acid Level 3.0mmol/L Current Medications Medications (Trade) Dose Ordered Sig/Lindsey Route PRN Reason Start Time Stop Time Status Last Admin Dose Admin Albuterol (Proventil 0.083% (Neb)) 5 mg ONCE STAT NEB 01/18/17 15:26 01/18/17 15:31 DC 01/18/17 15:47 Ipratropium [place] (Atrovent 0.02% (Neb)) 0.5 mg ONCE STAT NEB 01/18/17 15:26 01/18/17 15:31 DC 01/18/17 15:47 Sodium Chloride 3570 ml 3,570 ml BOLUS OVER 2 HOURS STAT IV* 01/18/17 17:15 01/18/17 17:20 DC 01/18/17 17:15 Aztreonam 50 ml @ 100 mls/hr ONCE STAT IVPB 01/18/17 17:15 01/18/17 17:44 DC 01/18/17 19:45 Levofloxacin/ Dextrose (Levaquin 500mg/ D5W 100 ml (Pmx)) 100 ml @ 100 mls/hr ONCE STAT IVPB 01/18/17 17:15 01/18/17 18:14 DC 01/18/17 17:15 Ondansetron HCl (Zofran Inj) 4 mg ER BRIDGE PRN IV NAUSEA AND/OR VOMITING 01/18/17 22:00 01/19/17 21:59 Acetaminophen 650 mg 650 mg ER BRIDGE PRN PO MILD PAIN/FEVER 01/18/17 22:00 01/19/17 21:59 Sodium Chloride (NS) 1,000 ml @ 1,000 mls/hr Q1H STAT IV 01/18/17 21:54 01/18/17 22:53 DC Procedures/MDM The patient presented to the emergency department with shortness of breath. My differential diagnosis included but was not limited to upper airway obstruction , CHF, pulmonary embolism, cardiac ischemia, pneumonia, pneumothorax, anemia, drug overdose, pulmonary edema, COPD or asthma. The patient was placed on a cardiac care unit nurse continuous pulse oximetry and IV access was established by nursing staff. Blood cultures and urine cultures were obtained. To treat the patient's dyspnea he did receive nebulizer treatments of albuterol Atrovent was placed on low-flow supplemental oxygen 2 L nasal cannula. My suspicion was low for pulmonary embolism as the patient states he has had multiple similar episodes of the shortness of breath which improves with supplemental oxygen and in addition the patient is currently taking Plavix and Eliquis for his chronic atrial fibrillation. 12 Lead EKG tracing ordered and reviewed by myself showed: Irregular irregular rhythm of 100 bpm MD interval not appreciated as P waves were not present due to atrial fibrillation QRS duration normal. No ST segment elevation No ST segment depression. No changes consistent with acute ischemia. Given that the patient is also complaining of right flank pain I obtained a CT scan of the abdomen which was reviewed by the radiologist and indicated the followin. 1.4 x 0.8 x 1 cm obstructive calculus in the right renal pelvis resulting in mild to moderate right hydronephrosis. Right peripelvic and periureteral fat stranding is likely reactive with inflammatory changes and free fluid extending into the right lower quadrant and anterior pelvis. 2. Indeterminate 1.4 cm exophytic isodense right renal lesion. This may represent a hemorrhagic / proteinaceous cyst versus solid mass. Recommend initial further evaluation with renal ultrasound. 3. Grade III chronic anterolisthesis of L5 on S1 with associated bilateral pars defects. 4. Small right pleural effusion. 5. Small amount of perisplenic free fluid, nonspecific. 6. Cardiomegaly. The patient was passing urine with normal renal function. The patient was refusing analgesic medication at this time. He will be admitted to the hospitalist Dr. Atwood to the telemetry service to receive IV fluid resuscitation as the patient had severe clinical dehydration with an elevated lactic acid. There is no signs of sepsis however the patient initially was given IV antibiotics by myself for concerns of pneumonia. The patient received vancomycin and Zosyn Departure Diagnosis: Primary Impression: Lactic acidosis Additional Impression: Nephrolithiasis Condition: Serious BEBETOIRENAA January 18, 2017 15:42
[2017-01-18 15:49] LABS: ADD SCAN DIFF NO
[2017-01-18 15:55] LABS: BASOPHIL # 0.1 10^3/ul (0.0-0.1); BASOPHILS % 1.4 % (0.0-2.0); EOSINOPHILS # 0.1 10^3/ul (0.0-0.5); EOSINOPHILS % 1.4 % (0.0-7.0); HEMOGLOBIN 11.1 g/dl (14.0-18.0); LYMPHOCYTES # 1.4 10^3/ul (0.8-2.9); LYMPHOCYTES % 28.7 % (15.0-51.0); MEAN CORPUSCULAR HGB CONC 30.8 g/dl (32.0-37.0); MEAN CORPUSCULAR VOLUME 77.8 fl (82.0-101.0); MEAN PLATELET VOLUME 10.7 fl (7.4-10.4); MONOCYTE # 0.6 10^3/ul (0.3-0.9); MONOCYTES % 11.3 % (0.0-11.0); NEUTROPHIL # 2.8 10^3/ul (1.6-7.5); NEUTROPHILS % 56.8 % (39.0-77.0); PLATELET COUNT 247 10^3/UL (140-415); RED BLOOD COUNT 4.63 10^6/ul (4.70-6.10); RED CELL DISTRIBUTION WIDTH 19.8 % (11.5-14.5); WHITE BLOOD COUNT 4.9 10^3/ul (4.8-10.8)
[2017-01-18 16:04] LABS: INR 1.49; PROTIME 18.1 Sec (12.2-14.2); PT RATIO 1.4
[2017-01-18 16:05] LABS: PARTIAL THROMBOPLASTIN TIME 33.3 Sec (25.0-35.0)
[2017-01-18 16:10] LABS: AADO2 Arterial 63.8 mmHg (7.0-24.0); Allen Test ACCEPTAB; Arterial COHb 0.8 % (0.0-3.0); Arterial Fraction of Oxyhgb 96.9 % (93.0-99.0); Arterial HCO3 25.6 mmol/L (22.0-26.0); Arterial MetHb 0.4 % (0.0-1.5); Arterial Total Hemglobin 12.1 g/dl (12.0-18.0); MODE NASAL CANNULA
[2017-01-18 16:13] LABS: ALBUMIN 3.3 g/dl (3.3-4.9)
[2017-01-18 16:14] LABS: POTASSIUM 3.8 mmol/L (3.5-5.1)
[2017-01-18 16:16] LABS: ALBUMIN/GLOBULIN RATIO 0.91; BILIRUBIN,INDIRECT 2.6 mg/dl (0-1.1); BILIRUBIN,TOTAL 2.6 mg/dl (0.2-1.3); CALCIUM 9.2 mg/dl (8.4-10.2); CREATININE 0.74 mg/dl (0.61-1.24); TOTAL PROTEIN 6.9 g/dl (6.1-8.1)
--- NOTE | 2017-01-18 16:19 | RADRPT ---
PROCEDURE: Chest Radiograph. CLINICAL INDICATION: Sepsis TECHNIQUE: Single frontal chest radiograph. COMPARISON: Chest radiograph 09/20/2016 FINDINGS: A right chest wall dual lead implantable pacer is in place. The heart is enlarged. Atherosclerotic calcifications are present No infiltrate or effusion is seen. The bones are intact. IMPRESSION: 1. Stable radiographic appearance of the chest compared to 10/10/2016 without evidence of acute c ardiopulmonary disease. RPTAT: KK .Rolf Hurley MD, MD Date Time Electronically viewed and signed by .Rolf Hurley MD, on 01/18/2017 16:19 .B/
[2017-01-18 16:27] LABS: TROPONIN-I 0.048 ng/ml (0.00-0.12)
[2017-01-18 17:06] LABS: ADD UMIC YES; URINE BILIRUBIN (Dip) 2+ (NEGATIVE); URINE BLOOD (Dip) 3+ (NEGATIVE); URINE COLOR AMBER (YELLOW); URINE GLUCOSE (Dip) NEGATIVE (NEGATIVE); URINE KETONES (Dip) TRACE (NEGATIVE); URINE LEUKOCYTE ESTERASE (Dip) NEGATIVE (NEGATIVE); URINE NITRITE (Dip) NEGATIVE (NEGATIVE); URINE TOTAL PROTEIN (Dip) 2+ (NEGATIVE); URINE UROBILINOGEN (Dip) 4.0 E.U./dL (0.1-1.0)
[2017-01-18] MEDS ORDERED: ESCI10TA48 PO (17:10)
[2017-01-18] MEDS ORDERED: METO2.5T12 PO (17:11)
[2017-01-18] MEDS ORDERED: TRAM-40 PO (17:12)
[2017-01-18] MEDS ORDERED: AZTREONAM 1 GM/NS (PMX) 50 ML IVPB STA (17:15)
[2017-01-18] MEDS ORDERED: SODIUM CHLORIDE 0.9% 1L BAG IV* STA (17:15)
[2017-01-18] MEDS ORDERED: LEVOFLOXACIN 500MG/D5W (PMX) 100 ML IVPB STA (17:15)
[2017-01-18 17:19] LABS: BACTERIA,URINE MANY; ICTOTEST NEGATIVE (NEGATIVE); SQUAMOUS EPITHELIAL CELL,UR RARE; URINE RBCS >200 /HPF (0)
--- NOTE | 2017-01-18 18:48 | RADRPT ---
PROCEDURE: CT Abdomen and Pelvis without contrast. CLINICAL INDICATION: Abdominal pain. TECHNIQUE: CT scan of the abdomen and pelvis without contrast was performed on a multidetector hig h-resolution CT scanner. The patient was scanned without intravenous contrast. Coronal and sagittal reformatted images were obtained from the axial source images. Images were reviewed on a high-resol [employer] PACS workstation. One or more of the following dose reduction techniques were used: Automated exposure control, adjustment of the mA and/or kV according to patient size, use of iterative recon struction technique. The total exam CTDI equals 20.81 mGy and the total exam DLP equals 1217.56 mGy -cm. COMPARISON: None. FINDINGS: CT abdomen: There is a small right pleural effusion. The heart size is enlarged, without pericardial thickening or effusion. A pacemaker lead is seen with the tip in the right ventricle. The liver is normal in size and density without focal mass or intrahepatic biliary dilatation. The spleen is normal in size and homogeneous in density. The stomach is grossly unremarkable. The panc reas as visualized is normal. The gallbladder is surgically absent. The biliary tree is unremarkab le and there is no evidence for biliary dilatation. The adrenal glands are symmetric and normal. A 1.4 x 0.8 x 1.0 cm obstructive calculus is present in the right renal pelvis with associated moderat e right hydronephrosis and aneta pelvic and periureteral fat stranding which is likely reactive. Fat stranding and a small amount of free fluid tracks into the right paracolic gutter in the anterior p marya. There is a small amount of perisplenic free fluid. A simple appearing exophytic left renal cy st is present. There is indeterminate 1.4 cm exophytic isodense lesion at the superior pole of the r ight kidney. The aorta is of normal caliber. Moderate aortoiliac atherosclerotic calcifications are present. An infrarenal IVC filter is in place. There is no retroperitoneal lymphadenopathy. The kim hepatis region is clear. The small bowel and mesentery, as visualized, are unremarkable. CT pelvis: The small bowel loops situated within the pelvis are unremarkable. The pelvic organs are normal. T he pelvic sidewalls and inguinal regions are clear. The sigmoid colon and rectum are unremarkable. The appendix is not fluid-filled or distended. No mass or lymphadenopathy seen. There is a small fa t-containing left inguinal hernia. There is grade 3 anterolisthesis of L5- S1 with severe discogenic disease in large anterior bridging osteophytes. There is associated bilateral pars defects and facet arthropathy. Internal fixation h ardware is noted in the proximal left femur. No osteolytic or osteoblastic lesion is detected. IMPRESSION: 1. 1.4 x 0.8 x 1 cm obstructive calculus in the right renal pelvis resulting in mild to moderate ri ght hydronephrosis. Right peripelvic and periureteral fat stranding is likely reactive with inflamm atory changes and free fluid extending into the right lower quadrant and anterior pelvis. 2. Indeterminate 1.4 cm exophytic isodense right renal lesion. This may represent a hemorrhagic / proteinaceous cyst versus solid mass. Recommend initial further evaluation with renal ultrasound. 3. Grade III chronic anterolisthesis of L5 on S1 with associated bilateral pars defects. 4. Small right pleural effusion. 5. Small amount of perisplenic free fluid, nonspecific. 6. Cardiomegaly. RPTAT: HH .Jaguar Malave MD, MD Date Time Electronically viewed and signed by .Jaguar Malave MD, on 01/18/2017 18:48 .A/
[2017-01-18] MEDS ORDERED: SOD CHLORIDE 0.9% 1,000 ML IV STA (21:54)
[2017-01-18] MEDS ORDERED: ONDANSETRON 4 MG INJ IV PRN (22:00)
[2017-01-18] MEDS ORDERED: ACETAMINOPHEN 325 MG TAB PO PRN (22:00)
[2017-01-19 00:13] VITALS: TEMP 97.5
[2017-01-19 01:12] VITALS: Ht 182.9 cm; Wt 94.4 kg
[2017-01-19 01:30] VITALS: BP 137/86; PULSE 95; RESP 20
[2017-01-19] MEDS ORDERED: ZOLPIDEM 5 MG TAB PO PRN (02:30)
[2017-01-19] MEDS ORDERED: DOCUSATE SODIUM 100 MG CAP PO PRN (02:30)
[2017-01-19] MEDS ORDERED: NACL 0.9% 3 ML SYG IV SCH (02:30)
[2017-01-19] MEDS: SOD CHLORIDE 0.9% 1,000 ML IV SCH ×2 (02:38→18:40)
[2017-01-19] MEDS: morphine 2 MG INJ IV PRN ×2 (02:42→13:19)
--- NOTE | 2017-01-19 02:47 | HP ---
Date/Time of Note Date/Time of Note DATE: 01/19/17 TIME: 01:58 Assessment/Plan VTE Prophylaxis VTE Prophylaxis Intervention: SCD's Lines/Catheters IV [facility]from [facility] [employer] [employer] line still needed: No Assessment/Plan Chief Complaint/Hosp Course This is a 56-year-old male being admitted to telemetry for: #1 Lactic acidosis: Currently white blood cell count is within normal limits and patient is afebrile. X chest x-ray does not show any signs of underlying pneumonia. Patient did receive fluids in the ER and subsequent lactate did improve to 2.7. This likely could be secondary to dehydration. At the current time will give patient IV fluids at 80 cc an hour secondary to patient's previous heart condition. We will continue to monitor for any signs of any infection he did receive an initial dose of antibiotics in the ED. Will hold off on any further antibiotics at this time and start if clinically indicated. #2 hydronephrosis: This is likely secondary to patient's 1 x 0.8 x 1 cm stone in the right kidney. We will continue to monitor this. Patient may need stent placement by urology. We will continue IV fluids for now and put patient on Flomax. #3 nephrolithiasis: Patient has a 1 x 0.8 x 1 cm stone seen on CT of the abdomen and pelvis. Continue IV fluids for right now: Pain medications, may need urology consultation secondary to #2. #4 anemia: Patient's hemoglobin has been slowly trending down when compared to patient's previous admission blood work patient's MCV is a 77. Will check FOBT and iron studies. #5 atrial fibrillation, stable and currently rate controlled. Patient was previously on Coumadin and then Eliquis. However patient unsure on which anticoagulation the patient needs to be on at this time will consult cardiology for further recommendations. Continue Plavix. Based on previous notes patient does appear to have a history of noncompliance with various medications. #6 Systolic heart failure, stable and compensated at this time. Currently on statin. Patient does apparently have a history of noncompliance with his medications based on previous hospital notes. Small right pleural effusion on CT of the abdomen and pelvis. Again will consult Dr. Naomi Paul for any further recommendations. We will hold off on any current diuretics. This patient does appear to be slightly dehydrated once we rehydrate the patient will consider diuresis. #7 seizure disorder, stable continue Keppra. #8 Anxiety, continue escitalopram. #9 right renal lesion: CT exam shows Indeterminate 1.4 cm exophytic isodense right renal lesion. Will order renal renal ultrasound for further evaluation. #10 DVT GI prophylaxis, SCDs, H2 iraida Did discuss with the patient regarding his CODE STATUS and patient does state that he is a DNR. He however would like to discuss with urology regarding possible stent placement. Problems: HPI/ROS Admit Date/Time Admit Date/Time January 18, 2017 at 21:52 Hx of Present Illness This is a 56-year-old male with left-sided hemiparesis secondary to his CVA 10 years prior to arrival who presents to the emergency department brought in by EMS from his sniff facility, [facility], with difficulty breathing that has progressively worsened over the past week. The patient indicates he was discharged from [facility] 1 week ago where he had been treated for pneumonia he is not currently on antibiotics. He indicates that he still has had a productive cough since discharge with whitish sputum. Indicates that prior to arrival he indicated he was feeling short of breath. He stated he has had multiple similar episodes over the past several weeks of shortness of breath which improved when he is placed on oxygen. Indicated there was no oxygen available at [facility] and therefore 911 was called for further evaluation. The patient states he has had no fevers no shaking or chills. He also indicated that at the onset of the shortness of breath he developed right-sided chest pain which radiated to the right flank region. Indicates the pain is a sharp shooting pain. He states he has never had any similar episodes in the past and denies any recent trauma. He denies any frequency urgency or dysuria. The patient has a pacemaker and currently is on Eliquis and Plavix for chronic atrial fibrillation however patient has not taken it for the past 3 days as apparently he was not getting them at the facility he is staying at .He denies any abdominal pain. He denies any hemoptysis hematemesis or melanotic stools. The patient states he is a DO NOT RESUSCITATE with comfort measures only. However patient is okay with possibly getting ureteral stent if necessary. ROS Const: Fatigue Eyes : No pain discharge or redness or change in visual acuity ENT: No pain, sore throat, congestion, congestion, dysphagia or discharge Respiratory: No shortness of breath, cough, sputum, wheezing, or pleuritic pain Cardiovascular: No chest pain, palpitation, PND, or edema GI : no change in appetite, abdominal pain, nausea, vomiting, diarrhea, constipation, or change in the color his stool Genitourinary: Right flank pain Musculoskeletal: No joint pain, back pain, neck pain, restricted range of motion in neck or joints Skin: No rash, bruising or hives Neuro: Chronic left-sided weakness secondary to previous stroke Endocrine: No polyuria, polydipsia, temperature intolerance Psych: No hallucination, depression, anxiety or suicidal ideation PMH/Family/Social Past Medical History History of stroke, seizures, atrial fibrillation Past Surgical History Pacemaker, broken femur repair left, right fracture of the tibia-fibula repair, cholecystectomy Family History Significant Family History: hypertension, other (Hyperlipidemia) Social History Alcohol Use: none Smoking Status: Former smoker Drug Use: none Exam/Review of Systems Vital Signs Vitals Vital Signs Date Time Temp Pulse Resp B/P Pulse Ox O2 Delivery O2 Flow Rate FiO2 01/19/17 00:13 97.5 95 18 117/95 98 Room Air 01/18/17 21:37 2.0 01/18/17 15:47 21 Exam Exam Vitals General: Patient is in mild distress with right flank pain The patient is alert oriented -3 HEENT: Atraumatic, normocephalic. The pupils are equal, round and reactive. Extraocular motor are intact Neck: Supple with full range of motion. No rigidity or meningismus Chest: Nontender Lungs: Clear to auscultation bilaterally no crackles rales or wheezing Heart: Irregularly irregular, no murmurs appreciated Genitourinary: Right CVA tenderness to palpation Abdomen: Soft , nontender, nondistended , bowel sounds are present. No guarding no rebound tenderness , No masses or organomegaly. No costovertebral temporal angle mass Extremities: Normal to inspection, no edema no cyanosis Neurologic: Chronic left-sided weakness secondary to previous CVA. Additional Comments CT of the abdomen and pelvis IMPRESSION: 1. 1.4 x 0.8 x 1 cm obstructive calculus in the right renal pelvis resulting in mild to moderate right hydronephrosis. Right peripelvic and periureteral fat stranding is likely reactive with inflammatory changes and free fluid extending into the right lower quadrant and anterior pelvis. 2. Indeterminate 1.4 cm exophytic isodense right renal lesion. This may represent a hemorrhagic / proteinaceous cyst versus solid mass. Recommend initial further evaluation with renal ultrasound. 3. Grade III chronic anterolisthesis of L5 on S1 with associated bilateral pars defects. 4. Small right pleural effusion. 5. Small amount of perisplenic free fluid, nonspecific. 6. Cardiomegaly. Chest x-ray FINDINGS: A right chest wall dual lead implantable pacer is in place. The heart is enlarged. Atherosclerotic calcifications are present No infiltrate or effusion is seen. The bones are intact. IMPRESSION: 1. Stable radiographic appearance of the chest compared to 10/10/2016 without evidence of acute cardiopulmonary disease. EKG: Irregularly irregular, no overt ST or T-wave abnormalities noted Labs Result Diagram: 01/18/17 1535 01/18/17 1537 Medications Medications Current Medications Atorvastatin Calcium (Lipitor) 40 mg HS PO ; Start 01/19/17 at 21:00 Clopidogrel Bisulfate (plaVIX) 75 mg DAILY PO ; Start 01/19/17 at 09:00 Escitalopram Oxalate (Lexapro) 10 mg DAILY PO ; Start 01/19/17 at 09:00 Levetiracetam (Keppra) 500 mg BID PO ; Start 01/19/17 at 02:00 LAUREN BUNN January 19, 2017 02:09
[2017-01-19] MEDS: FAMOTIDINE 20 MG TAB PO SCH ×3 (02:52→21:29)
[2017-01-19] MEDS: LEVETIRACETAM 500 MG TAB PO SCH ×3 (02:52→21:29)
[2017-01-19 04:54] LABS: IRON 27 ug/dl (35-150)
[2017-01-19 05:03] LABS: TOTAL IRON BINDING CAPACITY 390 ug/dl (241-421)
[2017-01-19 07:54] VITALS: BP 121/81; RESP 24
[2017-01-19] MEDS ORDERED: CLOPIDOGREL 75 MG TAB PO SCH (09:00)
[2017-01-19] MEDS: ESCITALOPRAM 10 MG TAB PO SCH (09:24)
--- NOTE | 2017-01-19 10:01 | RADRPT ---
PROCEDURE: Retroperitoneal US. CLINICAL INDICATION: Flank pain, kidney stones TECHNIQUE: Multiple sonographic images of the kidneys and retroperitoneum were obtained. The imag es were reviewed on a PACS workstation. COMPARISON: 01/18/17 FINDINGS: The kidneys are normal in size, contour, cortical thickness and cortical echogenicity. The right kidney measures 11 cm. The left kidney measures 11 cm. There is a 1.6 cm stone in the right renal pelvis with mild right-sided hydronephrosis. There is a 1.6 cm simple cyst in the right kidney. There is a 4.8 x 3.1 cm simple cyst in the left kidney. The urinary bladder is partially distended and unremarkable. There is a small amount of ascites. RPTAT: AA IMPRESSION: Right nephrolithiasis with mild right-sided hydronephrosis. 1.6 cm simple cyst in the upper pole of the right kidney. 4.8 cm simple cyst in the left kidney. .Jagjit Brown MD, Date Time Electronically viewed and signed by .Jagjit Brown MD, MD on 01/19/2017 10:01 .S/
[2017-01-19] MEDS: BISACODYL (EC) 5 MG TAB PO PRN (12:05)
[2017-01-19 13:26] VITALS: BP 137/98; PULSE 97; RESP 19
[2017-01-19 13:27] VITALS: RESP 19
--- NOTE | 2017-01-19 13:31 | CONS ---
DATE OF ADMISSION: 01/18/2017 DATE OF CONSULTATION: 01/19/2017 TYPE OF CONSULTATION: Urology REQUESTING PHYSICIAN: Mary Jane Keyes MD HISTORY OF PRESENT ILLNESS: This is a 56-year-old male with multiple medical problems, who is a res ident of [facility], was brought to [facility] emergency r oom complaining of right-sided chest pain going from his shoulder down to his waist. The patient un derwent a CT scan of the abdomen and pelvis and that showed a right renal pelvic stone with obstruct ion; therefore, a urological consultation was requested. The patient states that he has a history o f stroke with left hemiplegia about 10 years ago and he has not recovered from that, and since then he has been bedridden, has not been able to ambulate. He has had many other problems that also incl ude a history of seizure disorder and he has been on Keppra. A history of heart failure and has bee n on medications for it. He has atrial fibrillation and has been on Plavix and Eliquis, but he said that he has not been taking it. History of fracture of left hip and surgery for that. He has a pa cemaker. Also, fracture of the tibia and fibula on the left side. History of cholecystectomy. The patient was a heavy smoker up to 3 packs a day many years back when he [place] He does not drink any alcohol. ALLERGIES: 1. PENICILLIN. 2. CARVEDILOL. MEDICATIONS: Presently the medications that he is on include: 1. Atorvastatin. 2. Plavix. 3. Lexapro. 4. Zofran. 5. Tylenol. 6. Morphine. 7. Ambien. 8. Colace. 9. Dulcolax. 10. Pepcid. 11. Sodium chloride. 12. IV fluid. 13. Keppra. PHYSICAL EXAMINATION: GENERAL: Reveals a 56-year-old male, alert, awake and very cooperative. NEUROLOGIC: He does have a left hemiparesis, left upper extremity is contracted. He cannot open hi s fingers. He can move both lower extremities, right better than left. NECK: Supple. HEAD: Normal. ABDOMEN: A little obese. There is no abdominal mass palpable. There is right flank tenderness. GENITALIA: External genitalia are normal. EXTREMITIES: Lower extremities are weak. Again, he moves the right lower extremity better than the left. The left upper extremity is contracted and cannot open his fingers. LABORATORY DATA: CBC shows a white count of 4.9, hemoglobin 11.1, hematocrit 36.0. BUN 17, creatin ine 0.74, sodium 140, potassium 3.8, chloride 98, CO2 of 27. PT is 18.1, INR 1.49, PTT 33.3. Urina lysis: 2+ bilirubin, more than 200 RBCs per high power field, 3+ occult blood, 2+ protein. IMAGING: The patient's CT scan of the abdomen and pelvis showed a 1.4 x 0.8 x 1 cm obstructive ston e in the right renal pelvis, resulting in mild to moderate right hydronephrosis. Right peripelvic a nd periureteral fat stranding is likely reactive with inflammatory changes and free fluid extending into the right lower quadrant and anterior pelvis. He had a 1.4 cm exophytic isodense right renal l esion and this turned to be a simple cyst on the ultrasound. He has a grade III chronic anterolisth esis of L5 to S1 with associated bilateral pars defects. A small right pleural effusion. Small umer unt of perisplenic free fluid, nonspecific and cardiomegaly. The patient states that he has had also a history of diverticulitis in the past and also pneumonia. IMPRESSION: Stone in the right renal pelvis causing obstruction and hydronephrosis, right renal cys t, left renal cyst. RECOMMENDATION: The patient will need to have extracorporeal shock wave lithotripsy to the stone an d insertion of a JJ stent to prevent any obstruction of the flow of the urine and also preventing th e stone fragment from getting stuck in the ureter, that is if he is medically stable. He is on Plav ix and we will have to stop that and if he is medically cleared, then we could proceed with the proc edure. Dictated By: JOSE A NEWTON/FELIX Conf#: [id number] DID#: [id number]
[2017-01-19] MEDS: SOD FERRIC GLUC COMPLX 125 MG in SOD CHLORIDE 0.9% 100 ML IVPB SCH (15:14)
[2017-01-19] MEDS: ONDANSETRON 4 MG INJ IV PRN (16:15)
[2017-01-19 20:30] VITALS: BP 116/81; RESP 18
[2017-01-19] MEDS: ATORVASTATIN 40 MG TAB PO SCH (21:29)
[2017-01-20] MEDS: SOD CHLORIDE 0.9% 1,000 ML IV SCH ×2 (03:12→09:18)
[2017-01-20 08:19] VITALS: BP 117/82; PULSE 86; RESP 18
[2017-01-20] MEDS: FAMOTIDINE 20 MG TAB PO SCH ×2 (09:44→21:13)
[2017-01-20] MEDS: LEVETIRACETAM 500 MG TAB PO SCH ×2 (09:44→21:13)
[2017-01-20] MEDS: ESCITALOPRAM 10 MG TAB PO SCH (09:44)
[2017-01-20] MEDS: MUPIROCIN 2% 22 GM OINT TOP SCH (12:00)
--- NOTE | 2017-01-20 13:40 | PN ---
DATE: 01/20/2017 SUBJECTIVE: Abdominal pain. The patient does have a right renal pelvic stone with hydronephrosis. The patient has multiple othe r medical problems that are being attended by the medical team. OBJECTIVE VITAL SIGNS: His temperature is 98.8, pulse is 86, respiration 18, blood pressure 117/82. ABDOMEN: Obese. There is some mild tenderness in the right upper quadrant area. EXTREMITIES: Normal. He does have a history of stroke over 10 years ago, and the patient is bedridden. The patient also has a history of seizures. The patient has a pacemaker, has been on anticoagulation; however, yeste rday I did talk to Dr. Keyes with the plan that we will have to do extracorporeal shock wave lithotrip sy to the stone and for that he needs to be off anticoagulation, so she stopped the Plavix and the p atient also needs to have medical clearance and therefore, a cardiology consultation has been reques tucker. From a urological standpoint, at the present, his urine culture showed no growth after 48 hour s and the CBC shows a white count of 4.9, hemoglobin 11.1. BUN is 17, creatinine 0.74. PLAN: Await the effect of the Plavix to subside and then do extracorporeal shockwave lithotripsy to the stone in the right renal pelvis and we may have to put a JJ stent just in case the stone does n ot break completely into smaller pieces. Dictated By: JOSE A NEWTON/FELIX Conf#: [id number] DID#: [id number]
[2017-01-20] MEDS: SOD FERRIC GLUC COMPLX 125 MG in SOD CHLORIDE 0.9% 100 ML IVPB SCH (14:20)
--- NOTE | 2017-01-20 14:57 | PN ---
Date/Time of Note Date/Time of Note DATE: 01/20/17 TIME: 14:48 Assessment/Plan VTE Prophylaxis VTE Prophylaxis Intervention: LMWH, SCD's Lines/Catheters IV Catheter Type (from Nrs): Peripheral IV Urinary Cath still in place: No Assessment/Plan Assessment/Plan 56 yo M with 1. Obstructive calculus in the right renal pelvis resulting in mild to moderate right hydronephrosis with probable infection 2. Multiple renal cysts without mass on USS 3. 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 Chronic liver disease with mild hyperbilirubinemia 5. CAD s/p recent NSTEMI and PCI 09/03 6. Chronic AFib : rate controlled 7. Chronic seizure d/o : controlled 8. CHF: compensated 9. Hx of Tobacco and illicit drug use 10. 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 Lactic acidosis: ?dehydration PLAN: * spoke with urology, patient needs lithotripsy but has to be off plavix for at least 5 days. Procedure tentatively planned for tuesday01/24/17 * Patient also need cardiac clearance, will consult Dr Montalvo * Bactroban BID for 7 days * Empiric antibiotics / IVF * Home meds /Supportive care * Lovenox at therapeutic doses. D/c at least 24hrs prior to procedure Subjective 24 Hr Interval Summary Free Text/Dictation sleeping but arousable Exam/Review of Systems Vital Signs Vitals Vital Signs Date Time Temp Pulse Resp B/P Pulse Ox O2 Delivery O2 Flow Rate FiO2 01/20/17 08:19 98.8 86 18 117/82 96 01/19/17 20:45 Nasal Cannula 2.0 01/18/17 15:47 21 Intake and Output 01/19/17 01/19/17 01/20/17 14:59 22:59 06:59 Intake Total 1330 ml 1240 ml Output Total 250 ml 200 ml Balance 1080 ml 1040 ml Exam Constitutional: oriented, No distress Head: normocephalic Eyes: PERRL, icteric ENMT: mucosa pink and moist Neck: supple Respiratory: diminished breath sounds, No crackles/rales Cardiovascular: No murmurs/extra sounds, No regular rate and rhythm Gastrointestinal: bowel sounds, non-tender, soft Musculoskeletal: muscle weakness (L sided hemiparesis and club foot) Neurological: focal weakness Results Result Diagram: 01/18/17 0652 01/18/17 1537 Medications Medications Current Medications Atorvastatin Calcium (Lipitor) 40 mg HS PO Last administered on 01/19/17 21:29 ; Admin Dose 40 MG; Start 01/19/17 at 21:00 Escitalopram Oxalate (Lexapro) 10 mg DAILY PO Last administered on 01/20/17 09: 44; Admin Dose 10 MG; Start 01/19/17 at 09:00 Levetiracetam 500 mg 500 mg BID PO Last administered on 01/20/17 09:44; Admin Dose 500 MG; Start 01/19/17 at 02:00 Sodium Chloride (NS) 1,000 ml @ 80 mls/hr [id number] IV Last administered on 09:18; Admin Dose 80 MLS/HR; Start 01/19/17 at 02:12 Ondansetron HCl (Zofran Inj) 4 mg Q6H PRN IV NAUSEA AND/OR VOMITING Last administered on 01/19/17 16:15; Admin Dose 4 MG; Start 01/19/17 at 02:30 Acetaminophen (Tylenol Tab) 650 mg Q6H PRN PO PAIN LEVEL 1-3 OR FEVER; Start at 02:30 Morphine Sulfate (morphine) 2 mg Q4H PRN IV PAIN LEVEL 7-10 Last administered on 01/19/17 13:19; Admin Dose 2 MG; Start 01/19/17 at 02:30 Zolpidem Tartrate (Ambien) 5 mg QHS PRN PO INSOMNIA; Start 01/19/17 at 02:30 Docusate Sodium (Colace) 100 mg Q12H PRN PO CONSTIPATION Last administered on 09:33; Admin Dose 100 MG; Start 01/19/17 at 02:30 Bisacodyl (Dulcolax) 5 mg DAILY PRN PO CONSTIPATION Last administered on 12:05; Admin Dose 5 MG; Start 01/19/17 at 02:30 Famotidine 20 mg 20 mg Q12 PO Last administered on 01/20/17 09:44; Admin Dose 20 MG; Start 01/19/17 at 02:30 Ferric Sodium Gluconate Complex/ Sodium Chloride (Ferrlecit/NS) 110 ml @ 110 mls/hr Q24H IVPB Last administered on 01/20/17 14:20; Admin Dose 110 MLS/HR; Start 01/19/17 at 15:00; Stop 01/23/17 at 15:59 Mupirocin (Bactroban) 1 applic BID TOP Last administered on 01/20/17 12:00; Admin Dose 1 APPLIC; Start 01/20/17 at 11:00 JEAN-PAUL ZAMUDIO January 20, 2017 14:57
--- NOTE | 2017-01-20 15:27 | CONS ---
Date/Time of Note Date/Time of Note DATE: 01/20/17 TIME: 15:23 Assessment/Plan Assessment/Plan Additional Assessment/Plan Preoperative cardiac risk stratification Hydronephrosis with obstructive right renal calculi Compensated systolic congestive heart failure Cardiomyopathy with ejection fraction 30% Atrial fibrillation, not on anticoagulation History of CVA DNR Medication noncompliance -Patient currently without chest pain or shortness of breath and appears compensated systolic congestive heart failure. Patient with history of myocardial infarction August 2016 likely secondary to noncompliant with anticoagulation in the setting of atrial fibrillation with embolization to the coronaries. He was to be on Plavix and anticoagulation but based on his medication reconciliation, he was not on anticoagulation as an outpatient. Plavix okay to be held at the current time for his urology procedure. At the current time, patient is at an intermediate risk for any untoward cardiac events for his urologic procedure. The benefits likely outweigh the risks. Consultation Date/Type/Reason Admit Date/Time January 18, 2017 at 21:52 Type of Consultation: cv Reason for Consultation Preoperative cardiac risk stratification Hx of Present Illness This is a 56-year-old male with past medical history of atrial fibrillation, cardiomyopathy, poor medication compliance as well as history of illicit drug use who presented from a nursing facility secondary to right sided abdominal and back pain and nausea. Patient found to have obstructive stone with hydronephrosis of the right kidney. Patient undergoing urologic evaluation with need of possible lithotripsy and possible ureter stent placement. Cardiology consultation was requested for preoperative risk stratification. Patient's activity is quite limited secondary to history of CVA and contractions. He does not ambulate. He denies any current chest pain, shortness of breath. He is a DNR as well as known noncompliance with medications. 12 point review of systems was performed with all pertinent positives and negatives mentioned above and all else is negative Past Medical History Systolic congestive heart failure Cardiomyopathy with ejection fraction 30% Atrial fibrillation History of CVA with left hemiparesis Past Surgical History Past Surgical Hx: angioplasty Family History Significant Family History: no pertinent family hx Social History Alcohol Use: none Smoking Status: Former smoker Drug Use: none, other (History of amphetamine use) Exam/Review of Systems Vital Signs Vitals Vital Signs Date Time Temp Pulse Resp B/P Pulse Ox O2 Delivery O2 Flow Rate FiO2 01/20/17 08:19 98.8 86 18 117/82 96 01/19/17 20:45 Nasal Cannula 2.0 01/18/17 15:47 21 Intake and Output 01/19/17 01/19/17 01/20/17 15:00 23:00 07:00 Intake Total 1330 ml 1240 ml Output Total 250 ml 200 ml Balance 1080 ml 1040 ml Exam No apparent distress Constitutional: alert, oriented Head: normocephalic Respiratory: other (Coarse breath sounds bilaterally, no wheezing) Cardiovascular: other (S1-S2 heard), regular rate and rhythm Gastrointestinal: bowel sounds, non-tender, soft Extremities: edema, other (No cyanosis, contractures of bilateral hands) Results Result Diagram: 01/18/17 1535 01/18/17 1537 Medications Medications Current Medications Atorvastatin Calcium (Lipitor) 40 mg HS PO Last administered on 01/19/17 21:29 ; Admin Dose 40 MG; Start 01/19/17 at 21:00 Escitalopram Oxalate (Lexapro) 10 mg DAILY PO Last administered on 01/20/17 09: 44; Admin Dose 10 MG; Start 01/19/17 at 09:00 Levetiracetam 500 mg 500 mg BID PO Last administered on 01/20/17 09:44; Admin Dose 500 MG; Start 01/19/17 at 02:00 Sodium Chloride (NS) 1,000 ml @ 80 mls/hr [id number] IV Last administered on 09:18; Admin Dose 80 MLS/HR; Start 01/19/17 at 02:12 Ondansetron HCl (Zofran Inj) 4 mg Q6H PRN IV NAUSEA AND/OR VOMITING Last administered on 01/19/17 16:15; Admin Dose 4 MG; Start 01/19/17 at 02:30 Acetaminophen (Tylenol Tab) 650 mg Q6H PRN PO PAIN LEVEL 1-3 OR FEVER; Start at 02:30 Morphine Sulfate (morphine) 2 mg Q4H PRN IV PAIN LEVEL 7-10 Last administered on 01/19/17 13:19; Admin Dose 2 MG; Start 01/19/17 at 02:30 Zolpidem Tartrate (Ambien) 5 mg QHS PRN PO INSOMNIA; Start 01/19/17 at 02:30 Docusate Sodium (Colace) 100 mg Q12H PRN PO CONSTIPATION Last administered on 09:33; Admin Dose 100 MG; Start 01/19/17 at 02:30 Bisacodyl (Dulcolax) 5 mg DAILY PRN PO CONSTIPATION Last administered on 12:05; Admin Dose 5 MG; Start 01/19/17 at 02:30 Famotidine 20 mg 20 mg Q12 PO Last administered on 01/20/17 09:44; Admin Dose 20 MG; Start 01/19/17 at 02:30 Ferric Sodium Gluconate Complex/ Sodium Chloride (Ferrlecit/NS) 110 ml @ 110 mls/hr Q24H IVPB Last administered on 01/20/17 14:20; Admin Dose 110 MLS/HR; Start 01/19/17 at 15:00; Stop 01/23/17 at 15:59 Mupirocin 1 applic 1 applic BID TOP Last administered on 01/20/17 12:00; Admin Dose 1 APPLIC; Start 01/20/17 at 11:00 Levofloxacin/ Dextrose (Levaquin 500mg/ D5W 100 ml (Pmx)) 100 ml @ 100 mls/hr Q24H IVPB ; Start 01/20/17 at 15:35 Procedures Procedures ECG with atrial fibrillation with ventricular rate 100, right bundle branch block, nonspecific STT wave abnormalities Louis Montalvo DO January 20, 2017 15:27
[2017-01-20] MEDS: LEVOFLOXACIN 500MG/D5W (PMX) 100 ML IVPB SCH (16:05)
[2017-01-20] MEDS: ATORVASTATIN 40 MG TAB PO SCH (21:13)
[2017-01-20] MEDS: ENOXAPARIN 100 MG/ML SYG SC SCH (21:16)
[2017-01-20 21:46] VITALS: BP 143/104; RESP 18
[2017-01-21] MEDS: MUPIROCIN 2% 22 GM OINT TOP SCH ×3 (01:58→20:25)
[2017-01-21] MEDS: SOD CHLORIDE 0.9% 1,000 ML IV SCH ×2 (04:12→15:17)
[2017-01-21 07:45] VITALS: BP 142/92; RESP 20
[2017-01-21] MEDS: ENOXAPARIN 100 MG/ML SYG SC SCH ×2 (09:22→20:18)
[2017-01-21] MEDS: ASPIRIN (EC) 81 MG TAB PO SCH (09:26)
[2017-01-21] MEDS: FAMOTIDINE 20 MG TAB PO SCH ×2 (09:26→20:16)
[2017-01-21] MEDS: ESCITALOPRAM 10 MG TAB PO SCH (09:26)
[2017-01-21] MEDS: LEVETIRACETAM 500 MG TAB PO SCH ×2 (09:26→20:16)
--- NOTE | 2017-01-21 09:59 | PN ---
Date/Time of Note Date/Time of Note DATE: 01/21/17 TIME: 09:58 Assessment/Plan VTE Prophylaxis VTE Prophylaxis Intervention: LMWH Lines/Catheters IV [facility] (from [facility] Peripheral IV Urinary Cath still in place: No Assessment/Plan Assessment/Plan 56 yo M with 1. Obstructive calculus in the right renal pelvis resulting in mild to moderate right hydronephrosis with probable infection 2. Multiple renal cysts without mass on USS 3. 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 Chronic liver disease with mild hyperbilirubinemia 5. CAD s/p recent NSTEMI and PCI 09/03 6. Chronic AFib : rate controlled 7. Chronic seizure d/o : controlled 8. CHF: compensated 9. Hx of Tobacco and illicit drug use 10. 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 Lactic acidosis: ?dehydration PLAN: * spoke with urology, patient needs lithotripsy but has to be off plavix for at least 5 days. Procedure tentatively planned for tuesday01/24/17 * Patient intermediate risk for surgery, cardiology recs appreciated * Bactroban BID for 7 days * Empiric antibiotics / IVF * Home meds /Supportive care * Lovenox at therapeutic doses. D/c at least 24hrs prior to procedure Subjective 24 Hr Interval Summary Free Text/Dictation Patient seen and examined. Nursing reports no acute overnight events. patient also denies pain and has no new complaints. Exam/Review of Systems Vital Signs Vitals Vital Signs Date Time Temp Pulse Resp B/P Pulse Ox O2 Delivery O2 Flow Rate FiO2 01/21/17 07:45 98.6 80 20 142/92 96 01/20/17 20:00 Nasal Cannula 2.0 01/18/17 15:47 21 Intake and Output 01/20/17 01/20/17 01/21/17 15:00 23:00 07:00 Intake Total 320 ml 1760 ml 400 ml Output Total 650 ml 600 ml Balance 320 ml 1110 ml -200 ml Exam Constitutional: oriented, No distress Head: normocephalic Eyes: PERRL, icteric ENMT: mucosa pink and moist Neck: supple Respiratory: diminished breath sounds, No crackles/rales Cardiovascular: No murmurs/extra sounds, No regular rate and rhythm Gastrointestinal: bowel sounds, non-tender, soft Musculoskeletal: muscle weakness (L sided hemiparesis and club foot), edema Neurological: focal weakness Results Result Diagram: 01/18/17 1535 01/18/17 1537 Medications Medications Current Medications Atorvastatin Calcium (Lipitor) 40 mg HS PO Last administered on 01/20/17 21:13 ; Admin Dose 40 MG; Start 01/19/17 at 21:00 Escitalopram Oxalate (Lexapro) 10 mg DAILY PO Last administered on 01/21/17 09: 26; Admin Dose 10 MG; Start 01/19/17 at 09:00 Levetiracetam 500 mg 500 mg BID PO Last administered on 01/21/17 09:26; Admin Dose 500 MG; Start 01/19/17 at 02:00 Sodium Chloride (NS) 1,000 ml @ 80 mls/hr [id number] IV Last administered on 09:18; Admin Dose 80 MLS/HR; Start 01/19/17 at 02:12 Ondansetron HCl (Zofran Inj) 4 mg Q6H PRN IV NAUSEA AND/OR VOMITING Last administered on 01/19/17 16:15; Admin Dose 4 MG; Start 01/19/17 at 02:30 Acetaminophen (Tylenol Tab) 650 mg Q6H PRN PO PAIN LEVEL 1-3 OR FEVER; Start at 02:30 Morphine Sulfate (morphine) 2 mg Q4H PRN IV PAIN LEVEL 7-10 Last administered on 01/19/17 13:19; Admin Dose 2 MG; Start 01/19/17 at 02:30 Zolpidem Tartrate (Ambien) 5 mg QHS PRN PO INSOMNIA; Start 01/19/17 at 02:30 Docusate Sodium (Colace) 100 mg Q12H PRN PO CONSTIPATION Last administered on 09:33; Admin Dose 100 MG; Start 01/19/17 at 02:30 Bisacodyl (Dulcolax) 5 mg DAILY PRN PO CONSTIPATION Last administered on 12:05; Admin Dose 5 MG; Start 01/19/17 at 02:30 Famotidine 20 mg 20 mg Q12 PO Last administered on 01/21/17 09:26; Admin Dose 20 MG; Start 01/19/17 at 02:30 Ferric Sodium Gluconate Complex/ Sodium Chloride (Ferrlecit/NS) 110 ml @ 110 mls/hr Q24H IVPB Last administered on 01/20/17 14:20; Admin Dose 110 MLS/HR; Start 01/19/17 at 15:00; Stop 01/23/17 at 15:59 Mupirocin 1 applic 1 applic BID TOP Last administered on 01/21/17 09:29; Admin Dose 1 APPLIC; Start 01/20/17 at 11:00 Levofloxacin/ Dextrose (Levaquin 500mg/ D5W 100 ml (Pmx)) 100 ml @ 100 mls/hr Q24H IVPB Last administered on 01/20/17 16:05; Admin Dose 100 MLS/HR; Start 01/20/17 at 15:35 Enoxaparin Sodium (Lovenox) 95 mg Q12 SC Last administered on 01/21/17 09:22; Admin Dose 95 MG; Start 01/20/17 at 21:00 Aspirin (Halfprin) 81 mg DAILY PO Last administered on 01/21/17 09:26; Admin Dose 81 MG; Start 01/21/17 at 09:00 Tramadol HCl (Ultram) 50 mg Q6H PRN PO PAIN; Start 01/20/17 at 16:00 JEAN-PAUL ZAMUDIO January 21, 2017 09:59
--- NOTE | 2017-01-21 12:15 | CONS ---
Date/Time of Note Date/Time of Note DATE: 01/21/17 TIME: 12:12 Assessment/Plan Assessment/Plan Additional Assessment/Plan Preoperative cardiac risk stratification Hydronephrosis with obstructive right renal calculi Compensated systolic congestive heart failure Cardiomyopathy with ejection fraction 30% Atrial fibrillation, not on anticoagulation History of CVA DNR Medication noncompliance -Patient awaiting urology procedure. After procedure, would recommend restarting oral anticoagulation if no contraindication. Patient with history of emboli to the coronaries causing myocardial infarction in the past. Given the sepsis and renal issues, would hold off on initiation of LUZMA inhibitor at the current time. Start low-dose beta-iraida given cardiomyopathy. Consultation Date/Type/Reason Admit Date/Time January 18, 2017 at 21:52 Initial Consult Date Type of Consultation: cv 24 HR Interval Summary Free Text/Dictation Denies chest pain, shortness of breath or palpitations Exam/Review of Systems Vital Signs Vitals Vital Signs Date Time Temp Pulse Resp B/P Pulse Ox O2 Delivery O2 Flow Rate FiO2 01/21/17 10:53 Nasal Cannula 2.0 01/21/17 07:45 98.6 80 20 142/92 96 01/18/17 15:47 21 Intake and Output 01/20/17 01/20/17 01/21/17 15:00 23:00 07:00 Intake Total 320 ml 1760 ml 400 ml Output Total 650 ml 600 ml Balance 320 ml 1110 ml -200 ml Exam No apparent distress Constitutional: alert, oriented Head: normocephalic Respiratory: other (Coarse breath sounds bilaterally, no wheezing) Cardiovascular: irregular rhythm, other (S1-S2 heard) Gastrointestinal: bowel sounds, non-tender, soft Extremities: edema Results Result Diagram: 01/18/17 1535 01/18/17 1537 Medications Medications Current Medications Atorvastatin Calcium (Lipitor) 40 mg HS PO Last administered on 01/20/17 21:13 ; Admin Dose 40 MG; Start 01/19/17 at 21:00 Escitalopram Oxalate (Lexapro) 10 mg DAILY PO Last administered on 01/21/17 09: 26; Admin Dose 10 MG; Start 01/19/17 at 09:00 Levetiracetam 500 mg 500 mg BID PO Last administered on 01/21/17 09:26; Admin Dose 500 MG; Start 01/19/17 at 02:00 Sodium Chloride (NS) 1,000 ml @ 80 mls/hr [id number] IV Last administered on 09:18; Admin Dose 80 MLS/HR; Start 01/19/17 at 02:12 Ondansetron HCl (Zofran Inj) 4 mg Q6H PRN IV NAUSEA AND/OR VOMITING Last administered on 01/19/17 16:15; Admin Dose 4 MG; Start 01/19/17 at 02:30 Acetaminophen (Tylenol Tab) 650 mg Q6H PRN PO PAIN LEVEL 1-3 OR FEVER; Start at 02:30 Morphine Sulfate (morphine) 2 mg Q4H PRN IV PAIN LEVEL 7-10 Last administered on 01/19/17 13:19; Admin Dose 2 MG; Start 01/19/17 at 02:30 Zolpidem Tartrate (Ambien) 5 mg QHS PRN PO INSOMNIA; Start 01/19/17 at 02:30 Docusate Sodium (Colace) 100 mg Q12H PRN PO CONSTIPATION Last administered on 09:33; Admin Dose 100 MG; Start 01/19/17 at 02:30 Bisacodyl (Dulcolax) 5 mg DAILY PRN PO CONSTIPATION Last administered on 12:05; Admin Dose 5 MG; Start 01/19/17 at 02:30 Famotidine 20 mg 20 mg Q12 PO Last administered on 01/21/17 09:26; Admin Dose 20 MG; Start 01/19/17 at 02:30 Ferric Sodium Gluconate Complex/ Sodium Chloride (Ferrlecit/NS) 110 ml @ 110 mls/hr Q24H IVPB Last administered on 01/20/17 14:20; Admin Dose 110 MLS/HR; Start 01/19/17 at 15:00; Stop 01/23/17 at 15:59 Mupirocin 1 applic 1 applic BID TOP Last administered on 01/21/17 09:29; Admin Dose 1 APPLIC; Start 01/20/17 at 11:00 Levofloxacin/ Dextrose (Levaquin 500mg/ D5W 100 ml (Pmx)) 100 ml @ 100 mls/hr Q24H IVPB Last administered on 01/20/17 16:05; Admin Dose 100 MLS/HR; Start 01/20/17 at 15:35 Enoxaparin Sodium (Lovenox) 95 mg Q12 SC Last administered on 01/21/17 09:22; Admin Dose 95 MG; Start 01/20/17 at 21:00 Aspirin (Halfprin) 81 mg DAILY PO Last administered on 01/21/17 09:26; Admin Dose 81 MG; Start 01/21/17 at 09:00 Tramadol HCl (Ultram) 50 mg Q6H PRN PO PAIN; Start 01/20/17 at 16:00 Louis Montalvo DO January 21, 2017 12:15
[2017-01-21] MEDS: BISACODYL (EC) 5 MG TAB PO PRN (12:57)
[2017-01-21] MEDS: METOPROLOL 25 MG TAB PO SCH ×2 (13:06→23:00)
[2017-01-21] MEDS: LEVOFLOXACIN 500MG/D5W (PMX) 100 ML IVPB SCH (14:58)
[2017-01-21] MEDS: SOD FERRIC GLUC COMPLX 125 MG in SOD CHLORIDE 0.9% 100 ML IVPB SCH (14:58)
[2017-01-21] MEDS: ATORVASTATIN 40 MG TAB PO SCH (20:16)
[2017-01-21] MEDS ORDERED: METOPROLOL 25 MG TAB PO SCH (21:00)
[2017-01-21 21:24] VITALS: BP 115/84; RESP 19
[2017-01-22] MEDS ORDERED: DIPHENHYDRAMINE 50 MG INJ IV PRN (03:20)
[2017-01-22] MEDS: SOD CHLORIDE 0.9% 1,000 ML IV SCH ×2 (03:22→17:39)
[2017-01-22] MEDS: DIPHENHYDRAMINE 25 MG CAP PO PRN (03:31)
--- NOTE | 2017-01-22 05:14 | PN ---
DATE: 01/21/2017 SUBJECTIVE: The patient does have a right renal stone with right hydronephrosis and the patient was having pain on that side. Today he seems to be more comfortable. OBJECTIVE: VITAL SIGNS: His temperature is 98.6, pulse is 80, respiration 20, blood pressure 142/92. ABDOMEN: Soft. He has, however, right flank tenderness. The external genitalia are normal. LABORATORY DATA: CBC shows a white count of 4.9. He has been refusing blood draw and his hemoglobi n is 11.1. The BUN is 17, creatinine 0.74. A urine culture no growth after 48 hours. IMPRESSION: Right renal stone and hydronephrosis on the right side. PLAN: The patient was on the Plavix anticoagulation and that was stopped. The plan is to do right extracorporeal shock wave lithotripsy and a possible insertion of a JJ stent, and that is after the effect of the anticoagulation is gone. The patient in the meantime will be managed for his medical problems. Dictated By: JOSE A NEWTON/FELIX Conf#: [id number] DID#: [id number]
[2017-01-22] MEDS: traMADol 50 MG TAB PO PRN ×2 (06:04→13:02)
[2017-01-22 08:39] VITALS: BP 117/83; RESP 19
[2017-01-22] MEDS: ENOXAPARIN 100 MG/ML SYG SC SCH ×2 (08:44→21:00)
[2017-01-22] MEDS: FAMOTIDINE 20 MG TAB PO SCH ×2 (08:45→20:58)
[2017-01-22] MEDS: ESCITALOPRAM 10 MG TAB PO SCH (08:45)
[2017-01-22] MEDS: LEVETIRACETAM 500 MG TAB PO SCH ×2 (08:46→20:57)
[2017-01-22] MEDS: ASPIRIN (EC) 81 MG TAB PO SCH (08:46)
[2017-01-22] MEDS: METOPROLOL 25 MG TAB PO SCH ×2 (08:46→20:58)
[2017-01-22] MEDS: MUPIROCIN 2% 22 GM OINT TOP SCH ×2 (09:00→21:01)
--- NOTE | 2017-01-22 09:26 | PN ---
Date/Time of Note Date/Time of Note DATE: 01/22/17 TIME: 09:24 Assessment/Plan VTE Prophylaxis VTE Prophylaxis Intervention: LMWH Lines/Catheters IV C[facility]ter Type (from [facility]): Peripheral IV Urinary Cath still in place: No Assessment/Plan Assessment/Plan 56 yo M with 1. Obstructive calculus in the right renal pelvis resulting in mild to moderate right hydronephrosis with probable infection 2. Multiple renal cysts without mass on USS 3. 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 Chronic liver disease with mild hyperbilirubinemia 5. CAD s/p recent NSTEMI and PCI 09/03 6. Chronic AFib : rate controlled 7. Chronic seizure d/o : controlled 8. CHF: compensated 9. Hx of Tobacco and illicit drug use 10. Ischemic CM with last EF 30% 11. MRSA nares 12. Lactic acidosis: ?dehydration 13. Depression versus Non compliance: Patient refusing labs and nursing intervention. Per report has been doing this at correction as well. PLAN: * Unable to assess response to interventions as patient has been refusing all forms of nursing and blood draws. * Telepsych consult for depression * spoke with urology, patient needs lithotripsy but has to be off Plavix for at least 5 days. Procedure tentatively planned for Tuesday01/24/17 * Patient intermediate risk for surgery, cardiology recs appreciated * Bactroban BID for 7 days * Empiric antibiotics / IVF * Home meds /Supportive care * Lovenox at therapeutic doses. D/c at least 24hrs prior to procedure Subjective 24 Hr Interval Summary Free Text/Dictation Patient refusing all lab draw and nursing interventions. Reports that he has lost his apartment and is distant to spend the rest of his life in a correction. States he does not want to go back to the correction where he came from. When asked about suicidal thoughts, he does not deny them, however does not endorse to me either. He is agreeable to tele psychiatry review. Patient seems quite depressed about his overall situation. Despite the situation and counseling continues to refuse lab draws. States he may consider a PICC line tomorrow. I also explained that he could going to renal failure from the antibiotics and we will not know about it when not monitoring his renal function but he still continues to refuse labs. Exam/Review of Systems Vital Signs Vitals Vital Signs Date Time Temp Pulse Resp B/P Pulse Ox O2 Delivery O2 Flow Rate FiO2 01/22/17 08:39 97.6 57 19 117/83 94 01/21/17 20:00 Nasal Cannula 2.0 01/18/17 15:47 21 Intake and Output 01/21/17 01/21/17 01/22/17 15:00 23:00 07:00 Intake Total 480 ml 400 ml Output Total 400 ml 400 ml Balance 80 ml 0 ml Exam Constitutional: oriented, No distress Head: normocephalic Eyes: PERRL, icteric ENMT: mucosa pink and moist Neck: supple Respiratory: diminished breath sounds, No crackles/rales Cardiovascular: No murmurs/extra sounds, No regular rate and rhythm Gastrointestinal: bowel sounds, non-tender, soft Musculoskeletal: muscle weakness (L sided hemiparesis and loss of hand and club foot), edema Neurological: focal weakness Psych: depression Results Result Diagram: 01/18/17 1535 01/18/17 1537 Medications Medications Current Medications Atorvastatin Calcium (Lipitor) 40 mg HS PO Last administered on 01/21/17 20:16 ; Admin Dose 40 MG; Start 01/19/17 at 21:00 Escitalopram Oxalate (Lexapro) 10 mg DAILY PO Last administered on 01/22/17 08: 45; Admin Dose 10 MG; Start 01/19/17 at 09:00 Levetiracetam 500 mg 500 mg BID PO Last administered on 01/22/17 08:46; Admin Dose 500 MG; Start 01/19/17 at 02:00 Sodium Chloride (NS) 1,000 ml @ 80 mls/hr [id number] IV Last administered on 09:18; Admin Dose 80 MLS/HR; Start 01/19/17 at 02:12 Ondansetron HCl (Zofran Inj) 4 mg Q6H PRN IV NAUSEA AND/OR VOMITING Last administered on 01/19/17 16:15; Admin Dose 4 MG; Start 01/19/17 at 02:30 Acetaminophen (Tylenol Tab) 650 mg Q6H PRN PO PAIN LEVEL 1-3 OR FEVER; Start at 02:30 Morphine Sulfate (morphine) 2 mg Q4H PRN IV PAIN LEVEL 7-10 Last administered on 01/19/17 13:19; Admin Dose 2 MG; Start 01/19/17 at 02:30 Zolpidem Tartrate (Ambien) 5 mg QHS PRN PO INSOMNIA; Start 01/19/17 at 02:30 Docusate Sodium (Colace) 100 mg Q12H PRN PO CONSTIPATION Last administered on 09:33; Admin Dose 100 MG; Start 01/19/17 at 02:30 Bisacodyl (Dulcolax) 5 mg DAILY PRN PO CONSTIPATION Last administered on 12:57; Admin Dose 5 MG; Start 01/19/17 at 02:30 Famotidine 20 mg 20 mg Q12 PO Last administered on 01/22/17 08:45; Admin Dose 20 MG; Start 01/19/17 at 02:30 Ferric Sodium Gluconate Complex/ Sodium Chloride (Ferrlecit/NS) 110 ml @ 110 mls/hr Q24H IVPB Last administered on 01/20/17 14:20; Admin Dose 110 MLS/HR; Start 01/19/17 at 15:00; Stop 01/23/17 at 15:59 Mupirocin 1 applic 1 applic BID TOP Last administered on 01/22/17 09:00; Admin Dose 1 APPLIC; Start 01/20/17 at 11:00 Levofloxacin/ Dextrose (Levaquin 500mg/ D5W 100 ml (Pmx)) 100 ml @ 100 mls/hr Q24H IVPB Last administered on 01/20/17 16:05; Admin Dose 100 MLS/HR; Start 01/20/17 at 15:35 Enoxaparin Sodium (Lovenox) 95 mg Q12 SC Last administered on 01/22/17 08:44; Admin Dose 95 MG; Start 01/20/17 at 21:00 Aspirin (Halfprin) 81 mg DAILY PO Last administered on 01/22/17 08:46; Admin Dose 81 MG; Start 01/21/17 at 09:00 Tramadol HCl (Ultram) 50 mg Q6H PRN PO PAIN Last administered on 01/22/17 06:04 ; Admin Dose 50 MG; Start 01/20/17 at 16:00 Metoprolol Tartrate (Lopressor) 12.5 mg BID PO Last administered on 01/22/17 08 :46; Admin Dose 12.5 MG; Start 01/21/17 at 13:00 Diphenhydramine HCl (Benadryl) 25 mg Q12H PRN PO ITCHING Last administered on 03:31; Admin Dose 25 MG; Start 01/22/17 at 03:30 JEAN-PAUL ZAMUDIO January 22, 2017 09:26
[2017-01-22] MEDS ORDERED: LIDOCAINE 1% (MPF) 5 ML VIAL SC ONE (11:30)
--- NOTE | 2017-01-22 12:03 | PN ---
DATE: 01/22/2017 SUBJECTIVE: Right renal stone with hydronephrosis and flank pain. HISTORY OF PRESENT ILLNESS: The patient has multiple medical problems and has been on anticoagulati on, and that was stopped in preparation to do the extracorporeal shock wave lithotripsy on the stone . The patient is comfortable at present; however, is complaining about the IV that came out. I cliff ked to him and he is willing to accept having a PICC line. OBJECTIVE FINDINGS: VITAL SIGNS: Temperature is 97.6, pulse is 57, respirations 19, blood pressure 117/83. ABDOMEN: Soft. There is mild right flank tenderness. LABORATORY DATA: Urine culture, no growth after 48 hours. IMPRESSION: Right renal stone in the renal pelvis and hydronephrosis. PLAN: To continue the present treatment. After the effects of the Plavix subsides, which hopefully will be next week on Tuesday, we will do a right extracorporeal shockwave lithotripsy and if needed put in a JJ stent. I have talked to the patient and he wants to proceed. Also if there is difficult y inserting a peripheral line on him, he is willing to accept having a PICC line. Dictated By: JOSE A NEWTON/FELIX Conf#: [id number] DID#: [id number]
[2017-01-22] MEDS: SOD FERRIC GLUC COMPLX 125 MG in SOD CHLORIDE 0.9% 100 ML IVPB SCH (15:00)
[2017-01-22] MEDS: LEVOFLOXACIN 500MG/D5W (PMX) 100 ML IVPB SCH (15:35)
--- NOTE | 2017-01-22 18:52 | RADRPT ---
PROCEDURE: XR Abdomen. CLINICAL INDICATION: Abdomen pain. Urinary tract calculus. TECHNIQUE: AP supine abdomen x-ray. COMPARISON: CT scan of the abdomen and pelvis dated 01/18/2017 which demonstrated a 1.4 x 0.8 x 1. 0 cm obstructing calculus at the right ureteral pelvic junction. FINDINGS: The bowel gas pattern is normal with no evidence of obstruction. There is a dual lead permanent pacemaker. Surgical clips are present in the right upper quadrant of the abdomen. As seen on prior CT scan, there is a calculus at the level of the upper right ureter measuring 1.7 x 1.1 cm. There is no other urinary tract calculus. There are degenerative changes of the spine and hips. There has been prior left hip open reduction internal fixation. IMPRESSION: 1. Calculus at the level of the upper right ureter. 2. No evidence of bowel obstruction. RPTAT: QQ .Artem Solorzano MD, MD Date Time Electronically viewed and signed by .Artem Solorzano MD, on 01/22/2017 18:52 .R/
[2017-01-22] MEDS: ATORVASTATIN 40 MG TAB PO SCH (20:57)
[2017-01-22 22:40] VITALS: BP 128/71; RESP 19
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
[2017-01-23 06:08] LABS: ADD SCAN DIFF NO
[2017-01-23] MEDS: SOD CHLORIDE 0.9% 1,000 ML IV SCH (06:12)
[2017-01-23 06:14] LABS: BASOPHIL # 0.1 10^3/ul (0.0-0.1); BASOPHILS % 1.2 % (0.0-2.0); EOSINOPHILS # 0.1 10^3/ul (0.0-0.5); HEMATOCRIT 35.3 % (42.0-52.0); HEMOGLOBIN 10.8 g/dl (14.0-18.0); LYMPHOCYTES # 1.8 10^3/ul (0.8-2.9); LYMPHOCYTES % 36.1 % (15.0-51.0); MEAN CORPUSCULAR HEMOGLOBIN 23.7 pg (29.0-33.0); MEAN CORPUSCULAR HGB CONC 30.6 g/dl (32.0-37.0); MEAN CORPUSCULAR VOLUME 77.6 fl (82.0-101.0); MEAN PLATELET VOLUME 11.5 fl (7.4-10.4); MONOCYTE # 0.6 10^3/ul (0.3-0.9); MONOCYTES % 12.3 % (0.0-11.0); NEUTROPHIL # 2.4 10^3/ul (1.6-7.5); NEUTROPHILS % 48.2 % (39.0-77.0); NUCLEATED RED BLOOD CELLS% 0.4 /100WBC (0.0-0.0); PLATELET COUNT 224 10^3/UL (140-415); RED BLOOD COUNT 4.55 10^6/ul (4.70-6.10); RED CELL DISTRIBUTION WIDTH 19.9 % (11.5-14.5)
[2017-01-23 06:59] LABS: ALBUMIN 2.8 g/dl (3.3-4.9)
[2017-01-23 07:00] LABS: POTASSIUM 3.9 mmol/L (3.5-5.1)
[2017-01-23 07:02] LABS: CREATININE 0.9 mg/dl (0.61-1.24)
[2017-01-23 07:03] LABS: CALCIUM 8.4 mg/dl (8.4-10.2); PHOSPHORUS 3.4 mg/dl (2.5-4.9)
[2017-01-23 08:00] VITALS: BP 123/79; PULSE 115; RESP 26
[2017-01-23 09:00] VITALS: BP 116/89; PULSE 75; RESP 20
[2017-01-23] MEDS: ENOXAPARIN 100 MG/ML SYG SC SCH ×3 (09:00→21:01)
[2017-01-23] MEDS: ASPIRIN (EC) 81 MG TAB PO SCH ×2 (09:00→10:24)
[2017-01-23] MEDS: ESCITALOPRAM 10 MG TAB PO SCH ×2 (09:00→10:25)
[2017-01-23] MEDS: LEVETIRACETAM 500 MG TAB PO SCH ×3 (09:00→20:53)
[2017-01-23] MEDS: MUPIROCIN 2% 22 GM OINT TOP SCH ×3 (09:00→21:02)
[2017-01-23] MEDS: FAMOTIDINE 20 MG TAB PO SCH ×3 (09:00→20:53)
[2017-01-23] MEDS: METOPROLOL 25 MG TAB PO SCH ×3 (09:00→20:53)
[2017-01-23 09:15] VITALS: BP 116/89; PULSE 72; RESP 18
--- NOTE | 2017-01-23 11:46 | RADRPT ---
PROCEDURE: XR Chest. CLINICAL INDICATION: Shortness of breath. TECHNIQUE: PA and Lateral views of the chest were obtained. COMPARISON: Chest x-ray 09/20/2016 04:10 p.m. FINDINGS: The soft tissues are normal. There is a levocurvature of the upper thoracic spine. An NG tube is p ositioned distal to the GE junction. There is a dual chamber cardiac pacemaker over the upper right chest wall. The heart is enlarged. The cardiomediastinal silhouette and hilar structures are norm al. The pulmonary vasculature is upper limits of normal. There is a left-sided aorta. The lungs are clear. The left costophrenic angle is out of the field of view. The right costophrenic angle is no rmal. IMPRESSION: 1. Pancardiomegaly which could be the result of a cardiomyopathy or pericardial effusion. 2. Dual chamber cardiac pacemaker. 3. No evidence of active cardiopulmonary disease. RPTAT:AAJJ Physician Ana Date Time Electronically viewed and signed by Physician Ana on 01/23/2017 11:46 LOUANN/
[2017-01-23] MEDS: LEVOFLOXACIN 500MG/D5W (PMX) 100 ML IVPB SCH (14:50)
[2017-01-23] MEDS: SOD FERRIC GLUC COMPLX 125 MG in SOD CHLORIDE 0.9% 100 ML IVPB SCH (14:50)
--- NOTE | 2017-01-23 17:43 | QN ---
Documentation Comment Patient likely need inpatient psych management once medically cleared JEAN-PAUL ZAMUDIO January 23, 2017 17:43
[2017-01-23] MEDS: VENLAFAXINE 75 MG TABLET PO SCH (20:53)
[2017-01-23] MEDS: DOCUSATE SODIUM 100 MG CAP PO SCH (20:53)
[2017-01-23] MEDS: ATORVASTATIN 40 MG TAB PO SCH (20:53)
[2017-01-23 23:25] VITALS: BP 110/80; RESP 19
--- NOTE | 2017-01-24 03:32 | PN ---
DATE: 01/23/2017 SUBJECTIVE: The patient complains of abdominal pain. He does have a right upper ureteral stone and right hydronephrosis. OBJECTIVE: VITAL SIGNS: His temperature is 97.1, blood pressure 116/89, pulse is 72, respiration is 18. ABDOMEN: The patient does have right flank tenderness. LABORATORY DATA: The urine culture had no growth after 48 hours. CBC shows a white count of 5.0, h emoglobin 10.8, hematocrit 35.3, platelet count 224,000. BUN is 25, creatinine 0.9, sodium 139, pot assium 3.9, chloride 101, CO2 24. PT is 18.1, INR 1.49. The patient did have a KUB done yesterday, and that showed a stone at the level of the upper right ureter. IMPRESSION: Right upper ureteral stone. Initially, the stone was at ureteropelvic junction. PLAN: To continue present treatment and in 2 days, once the effect of the anticoagulation that he w as on, the Plavix, subsides, then we will do a cystoscopy, stone manipulation, and right extracorpor eal shockwave lithotripsy and insertion of a JJ stent if the stone appears to cause a problem with b locking the right ureter. I have explained that to the patient, and he is accepting to go ahead wit h it. Dictated By: JOSE A NEWTON/FELIX Conf#: [id number] DID#: [id number]
[2017-01-24 07:42] VITALS: BP 106/71; RESP 22
--- NOTE | 2017-01-24 08:22 | PN ---
DATE: 01/23/2017 TIME: About 9:00 this morning. SUBJECTIVE: I was called to patient's bedside because of hypoxemia. The patient continually refusi ng intervention, including IV fluids, IV blood draw. PHYSICAL EXAMINATION: VITAL SIGNS: However, when I arrived, temperature 97.1, pulse 72, respirations 18, blood pressure _ ___/89, saturations were 98% on oxygen via facemask at 6 liters per minute. GENERAL: The patient was arousable, but very lethargic; however, he seemed oriented and continue to refuse blood draw, and IV drugs. HEENT: Head is normocephalic. Pupils are equal and reactive. Mucous membranes were moist. Facema sk in place. CHEST: Severely reduced air entry bilaterally. No crackles or wheezes, however. CARDIOVASCULAR: Irregularly irregular heart sounds. No murmurs. ABDOMEN: Obese, soft, nontender with normoactive bowel sounds. EXTREMITIES: Bilateral leg edema, trace. LABORATORY DATA: The patient had a CBC drawn. WBC was normal, hemoglobin was 10. He has hypochrom ia and microcytosis. On his chemistry, glucose was 62. IMAGING: The chest x-ray today shows ____ cardiomegaly, which could vary the results of a cardiomyo edwige or pericardial effusion. ____ cardiac pacemaker. No active cardiopulmonary disease, acute. IMPRESSION: 1. Shortness of breath. The patient seems to be doing well on pacemaker. We will get a 2D echo to further evaluate probable cardiomegaly and pericardial effusion. Meanwhile, continue facemask. 2. Will hold IV fluids for now will provide appropriate diuretic therapy. I tried to convince this patient to consent to blood draw. 3. Obstructive calculus in right renal pelvis resulting in mild to moderate right hydronephrosis wi th probable infection. Plan for lithotripsy on Tuesday when patient ____ off Plavix. 4. Multiple renal cysts without masses on ultrasound. 5. 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 6. Chronic liver disease with mild hyperbilirubinemia. 7. Coronary artery disease, status post recent non-ST elevation myocardial infarction and percutane ous coronary intervention in 08/2016. 8. Chronic atrial fibrillation, rate controlled. 9. Chronic seizure disorder, controlled. 10. Congestive heart failure. 11. History of tobacco and illicit drug use. 12. History of sick sinus syndrome, status post pacemaker. 13. Methicillin-resistant Staphylococcus aureus nares on Bactroban. 14. Chronic depression and suicidal behavior ____. 15. Iron deficiency anemia. PLAN: As mentioned earlier, will start on oral diuresis and then will get a 2D echo. Continue curr ent antibiotic regimen. The patient has been counseled on the need for a PICC line again, but he co ntinues to refuse. He has also been put on 1 on 1 sitter with suicidal ideation. The patient is a DNR per his request. At this point, the patient is extremely difficult to treat, as he is refusing interventions. He understands that the consequences of his actions may be dire. I am not sure how aggressive to be with his care at this time because he is knowingly refusing interventions that coul d be lifesaving. He has been seen by psychiatry and they recommend Effexor therapy. I will start t his as well. Further interventions will depend on what he consents to in his clinical course. Dictated By: JEAN-PAUL ZAMUDIO MD, BA/FELIX Conf#: [id number] DID#: [id number] CC: Brian Atwood;*EndCC*
[2017-01-24] MEDS: ENOXAPARIN 100 MG/ML SYG SC SCH (09:00)
[2017-01-24] MEDS: VENLAFAXINE 75 MG TABLET PO SCH ×2 (09:47→20:33)
[2017-01-24] MEDS: FAMOTIDINE 20 MG TAB PO SCH ×2 (09:48→20:33)
[2017-01-24] MEDS: FUROSEMIDE 40 MG TAB PO SCH (09:48)
[2017-01-24] MEDS: METOPROLOL 25 MG TAB PO SCH ×2 (09:48→20:33)
[2017-01-24] MEDS: ESCITALOPRAM 10 MG TAB PO SCH (09:49)
[2017-01-24] MEDS: DOCUSATE SODIUM 100 MG CAP PO SCH ×2 (09:49→20:33)
[2017-01-24] MEDS: LEVETIRACETAM 500 MG TAB PO SCH ×2 (09:49→20:33)
[2017-01-24] MEDS: ASPIRIN (EC) 81 MG TAB PO SCH (09:49)
[2017-01-24] MEDS: MUPIROCIN 2% 22 GM OINT TOP SCH ×2 (09:50→20:36)
[2017-01-24] MEDS ORDERED: LIDOCAINE 1% (MPF) 5 ML VIAL SC ONE (10:00)
--- NOTE | 2017-01-24 11:52 | RADRPT ---
PROCEDURE: Ultrasound guidance for placement of needle in left upper extremity vein. CLINICAL INDICATION: Venous access. TECHNIQUE: Limited sonography of the left upper extremity was performed. Ultrasound images were recorded and s tored in the patient's medical record. COMPARISON: None. FINDINGS: The ultrasound images demonstrate a patent left upper extremity vein. The PICC line was inserted by the PICC line nurse. IMPRESSION: 1. Ultrasound guidance for a needle placement in a left upper extremity vein. 2. The left upper extremity vein is patent. RPTAT: QQ .Artem Solorzano MD, MD Date Time Electronically viewed and signed by .Artem Solorzano MD, MD on 01/24/2017 11:51 .R/
[2017-01-24] MEDS ORDERED: SOD CHLORIDE 0.9% 100 ML ONE (12:16)
[2017-01-24] MEDS: morphine 2 MG INJ IV PRN (12:21)
--- NOTE | 2017-01-24 14:20 | PN ---
Date/Time of Note Date/Time of Note DATE: 01/24/17 TIME: 14:10 Assessment/Plan VTE Prophylaxis VTE Prophylaxis Intervention: SCD's Lines/Catheters IV Catheter Type (from [facility]): PICC Line Central line still needed: Yes Urinary Cath still in place: No Assessment/Plan Chief Complaint/Hosp Course A/P: 56 M with: 1. Shortness of breath. The patient seems to be doing well on pacemaker. - f/u 2D echo to further evaluate probable cardiomegaly and pericardial effusion. 2. Obstructive calculus in right renal pelvis resulting in mild to moderate right hydronephrosis with probable infection. - Plan for lithotripsy on Tuesday possibly, continue abx 3. Multiple renal cysts without masses on ultrasound. 5. 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 6. Chronic liver disease with mild hyperbilirubinemia. 7. Coronary artery disease, status post recent non-ST elevation myocardial infarction and percutaneous coronary intervention in 08/2016. 8. Chronic atrial fibrillation, rate controlled. 9. Chronic seizure disorder, controlled. 10. Congestive heart failure. 11. History of tobacco and illicit drug use. 12. History of sick sinus syndrome, status post pacemaker. 13. Methicillin-resistant Staphylococcus aureus nares on Bactroban. 14. Chronic depression and suicidal behavior - effexor, consider 1:1 sitter 15. Iron deficiency anemia. PLAN: As mentioned earlier, will start on oral diuresis and then will get a 2D echo. Continue current antibiotic regimen. The patient has been counseled on the need for a PICC line again, but he continues to refuse. He has also been put on 1 on 1 sitter with suicidal ideation. The patient is a DNR per his request. At this point, the patient is extremely difficult to treat, as he is refusing interventions. He understands that the consequences of his actions may be dire. I am not sure how aggressive to be with his care at this time because he is knowingly refusing interventions that could be lifesaving. He has been seen by psychiatry and they recommend Effexor therapy, on this now. Further interventions will depend on what he consents to in his clinical course. Problems: Subjective 24 Hr Interval Summary Free Text/Dictation Pt refused labs this AM. No acute events overnight. Exam/Review of Systems Vital Signs Vitals Vital Signs Date Time Temp Pulse Resp B/P Pulse Ox O2 Delivery O2 Flow Rate FiO2 01/24/17 07:42 97.5 61 22 106/71 95 01/24/17 01:05 6.0 01/23/17 20:00 Nasal Cannula Intake and Output 01/23/17 01/23/17 01/24/17 15:00 23:00 07:00 Intake Total 720 ml 980 ml Output Total 850 ml Balance 720 ml 130 ml Exam GENERAL: The patient was arousable, but very lethargic; however, he seemed oriented and continue to refuse blood draw, and IV drugs. HEENT: Head is normocephalic. Pupils are equal and reactive. Mucous membranes were moist. Facemask in place. CHEST: Severely reduced air entry bilaterally. No crackles or wheezes, however. CARDIOVASCULAR: Irregularly irregular heart sounds. No murmurs. ABDOMEN: Obese, soft, nontender with normoactive bowel sounds. EXTREMITIES: Bilateral leg edema, trace. Results Result Diagram: 01/23/1752501/23/17525 Medications Medications Current Medications Atorvastatin Calcium (Lipitor) 40 mg HS PO Last administered on 01/23/17 20:53 ; Admin Dose 40 MG; Start 01/19/17 at 21:00 Escitalopram Oxalate (Lexapro) 10 mg DAILY PO Last administered on 01/24/17 09: 49; Admin Dose 10 MG; Start 01/19/17 at 09:00 Levetiracetam (Keppra) 500 mg BID PO Last administered on 01/24/17 09:49; Admin Dose 500 MG; Start 01/19/17 at 02:00 Ondansetron HCl (Zofran Inj) 4 mg Q6H PRN IV NAUSEA AND/OR VOMITING Last administered on 01/19/17 16:15; Admin Dose 4 MG; Start 01/19/17 at 02:30 Acetaminophen (Tylenol Tab) 650 mg Q6H PRN PO PAIN LEVEL 1-3 OR FEVER; Start at 02:30 Morphine Sulfate (morphine) 2 mg Q4H PRN IV PAIN LEVEL 7-10 Last administered on 01/19/17 13:19; Admin Dose 2 MG; Start 01/19/17 at 02:30 Zolpidem Tartrate (Ambien) 5 mg QHS PRN PO INSOMNIA; Start 01/19/17 at 02:30 Bisacodyl (Dulcolax) 5 mg DAILY PRN PO CONSTIPATION Last administered on 12:57; Admin Dose 5 MG; Start 01/19/17 at 02:30 Famotidine (Pepcid) 20 mg Q12 PO Last administered on 01/24/17 09:48; Admin Dose 20 MG; Start 01/19/17 at 02:30 Mupirocin 1 applic 1 applic BID TOP Last administered on 01/24/17 09:50; Admin Dose 1 APPLIC; Start 01/20/17 at 11:00 Levofloxacin/ Dextrose (Levaquin 500mg/ D5W 100 ml (Pmx)) 100 ml @ 100 mls/hr Q24H IVPB Last administered on 01/20/17 16:05; Admin Dose 100 MLS/HR; Start 01/20/17 at 15:35 Enoxaparin Sodium (Lovenox) 95 mg Q12 SC Last administered on 01/23/17 21:01; Admin Dose 95 MG; Start 01/20/17 at 21:00; Status Future Hold Aspirin (Halfprin) 81 mg DAILY PO Last administered on 01/24/17 09:49; Admin Dose 81 MG; Start 01/21/17 at 09:00 Tramadol HCl (Ultram) 50 mg Q6H PRN PO PAIN Last administered on 01/22/17 13:02 ; Admin Dose 50 MG; Start 01/20/17 at 16:00 Metoprolol Tartrate (Lopressor) 12.5 mg BID PO Last administered on 01/24/17 09 :48; Admin Dose 12.5 MG; Start 01/21/17 at 13:00 Diphenhydramine HCl (Benadryl) 25 mg Q12H PRN PO ITCHING Last administered on 03:31; Admin Dose 25 MG; Start 01/22/17 at 03:30 Venlafaxine HCl (Effexor) 75 mg BID PO Last administered on 01/24/17 09:47; Admin Dose 75 MG; Start 01/23/17 at 21:00 Docusate Sodium (Colace) 100 mg Q12 PO Last administered on 01/24/17 09:49; Admin Dose 100 MG; Start 01/23/17 at 21:00 Furosemide (Lasix) 40 mg DAILY PO Last administered on 01/24/17t 09:48; Admin Dose 40 MG; Start 01/24/17 at 09:00; Stop 01/27/17 at 08:59 IV Flush (NS 10 ml) 10 ml PRN PRN IV IV PROTOCOL; Start 01/24/17 at 12:30 [place] January 24, 2017 14:20
[2017-01-24 14:46] LABS: ADD SCAN DIFF NO
[2017-01-24 14:47] LABS: HEMATOCRIT 32.6 % (42.0-52.0); HEMOGLOBIN 10.3 g/dl (14.0-18.0); MEAN CORPUSCULAR HEMOGLOBIN 24.1 pg (29.0-33.0); MEAN CORPUSCULAR HGB CONC 31.6 g/dl (32.0-37.0); MEAN CORPUSCULAR VOLUME 76.2 fl (82.0-101.0); PLATELET COUNT 209 10^3/UL (140-415); RED BLOOD COUNT 4.28 10^6/ul (4.70-6.10); RED CELL DISTRIBUTION WIDTH 19.9 % (11.5-14.5); WHITE BLOOD COUNT 4.1 10^3/ul (4.8-10.8)
[2017-01-24 15:24] LABS: POTASSIUM 3.5 mmol/L (3.5-5.1)
[2017-01-24 15:26] LABS: CREATININE 0.81 mg/dl (0.61-1.24)
[2017-01-24 15:27] LABS: CALCIUM 8.3 mg/dl (8.4-10.2)
--- NOTE | 2017-01-24 15:30 | RADRPT ---
PROCEDURE: XR Chest. CLINICAL INDICATION: Status post PICC line catheter placement. TECHNIQUE: Single frontal view of the chest was obtained COMPARISON: Chest x-ray 09/20/2016 04:10 p.m. FINDINGS: The soft tissues are normal. The spine is poorly visualized due to underpenetration of the radiogra ph. The visible bony elements are normal. The heart is enlarged. The cardiomediastinal silhouette and hilar structures are normal. The pulmonary vasculature is equilibrated. There is a left-sided aorta. There are infiltrates in the right lower lobe. No pleural effusion is identified. A dual ch julio cardiac pacemaker is implanted over the upper right chest wall. A PICC line catheter enters t he left arm and is coiled 180 degrees upon itself at the level of the azygos vein returning to aside with its distal tip below the medial left clavicle. IMPRESSION: 1. The PICC line catheter makes it 180 degree turn and needs to be repositioned. 2. Cardiomegaly with asymmetric right lower lobe infiltrate. Mild pulmonary venous obstruction is suspected. 3. Dual chamber cardiac pacemaker. RPTAT:AAJJ Physician Ana Date Time Electronically viewed and signed by Physician Ana on 01/24/2017 15:30 LOUANN/
--- NOTE | 2017-01-24 16:01 | RADRPT ---
Echocardiogram Report Patient Name: BALTAZAR HENRIQUEZ Gender: Male Date: 1960 Study Date: 24-Jan-2017 Multigrapher: Iesha Quinones [facility] Location: [id number] Ref. Physician: JEAN-PAUL ZAMUDIO Quality: Adequate Procedures: Transthoracic echocardiogram with complete 2D, M-Mode, and doppler examination. Indications: Cardiomegaly. 2D/M Mode Doppler Measurement Value Normal Ranges Measurement Value Normal Ranges LVIDd 2D 6.3 3.5 - 5.6 cm AV Peak Kevin 0.9 m/sec LVIDs 2D 5.8 2.1 - 4.1 cm AV Peak PG 3.1 mmHg LVPWd 2D 1.3 0.6 - 1.1 cm AI Peak PG 10.6 mmHg IVSd 2D 1.3 0.6 - 1.1 cm AI Peak Kevin 1.6 m/sec AoR Diam 2D 3.6 2.0 - 3.7 cm AI PHT 1184.0 msec EDV 2D 201.9 cm3 TR Peak Kevin 1.8 m/sec ESV 2D 197.7 cm3 TR Peak PG 13.6 mmHg LA Dimen 2D 6.1 2.3 - 4.0 cm RVSP 29.0 mmHg Findings Left Ventricle: Mild concentric left ventricular hypertrophy. Mild enlargement of left ventricle cavity. Ejection fraction is visually estimated at 25 %. Multiple segmental wall motion abnormalities. Right Ventricle: Moderate right ventricular systolic dysfunction. Moderate enlargement of right ventricle. Moderate right ventricular hypokinesis. Pacemaker right heart. Left Atrium: There is severe enlargement of left atrium. Right Atrium: There is moderate enlargement of right atrium. Mitral Valve: Mitral valve leaflets appear mildly thickened. Mild mitral annular calcification. Mild to moderate mitral valve regurgitation. The regurgitation jet is eccentrically directed which may underestimate the severity of mitral regurgitation. Aortic Valve: Normal appearance of the aortic valve. No significant aortic stenosis or insufficiency. No hemodynamically significant aortic stenosis by doppler. Aortic cusps appear mildly calcified. Mild aortic valve regurgitation. Tricuspid Valve: Estimated peak PA systolic pressure 29 mmHg. Tricuspid valve appears mildly thickened. There is moderate to severe tricuspid regurgitation. Pulmonic Valve: Normal pulmonic valve appearance. There is mild pulmonic regurgitation. Pericardium: Normal pericardium with no significant pericardial effusion. Aorta: Normal aortic root. IVC: Dilated IVC without respiratory collapse consistent with elevated right atrial pressure. Conclusions 1.Mild concentric left ventricular hypertrophy. Mild enlargement of left ventricle cavity. Ejection fraction is visually estimated at 25 %. Multiple segmental wall motion abnormalities. 2.There is severe enlargement of left atrium. 3.There is moderate enlargement of right atrium. 4.Mitral valve leaflets appear mildly thickened. Mild mitral annular calcification. Mild to moderate mitral valve regurgitation. The regurgitation jet is eccentrically directed which may underestimate the severity of mitral regurgitation. 5.Normal appearance of the aortic valve. No significant aortic stenosis or insufficiency. No hemodynamically significant aortic stenosis by doppler. Aortic cusps appear mildly calcified. Mild aortic valve regurgitation. 6.Estimated peak PA systolic pressure 29 mmHg. Tricuspid valve appears mildly thickened. There is moderate to severe tricuspid regurgitation. 7.Dilated IVC without respiratory collapse consistent with elevated right atrial pressure. Electronically Signed By: Alton Berry 24-Jan-2017 16:01: Patient Name: BALTAZAR HENRIQUEZ Study Date: 24-Jan-2017 [id number]
--- NOTE | 2017-01-24 16:17 | RADRPT ---
PROCEDURE: XR Chest. CLINICAL INDICATION: Evaluate PICC line placement. TECHNIQUE: Portable AP view of the chest was obtained. COMPARISON: 01/24/2017 at11:21 a.m. FINDINGS: The left sided approach PICC has been successfully repositioned so that the distal tip now points in a caudal manner in the region of the cavoatrial junction, to the right of the previously visualized cardiac pacemaker electrodes. The cardiomediastinal silhouette is enlarged, right subclavian appro ach dual chamber cardiac pacemaker is again noted. Mild bibasilar subsegmental atelectasis is again suggested without evidence of pneumonia. There is no evidence for pleural effusion, pneumothorax o r pulmonary vascular congestion. The osseous structures are intact with no evidence for acute abnor mality. RPTAT:HJJR IMPRESSION: Successful interval repositioning of the left-sided PICC compared to earlier the same day the distal tip now in good position projecting at the cavoatrial junction. Physician Baylee Date Time Electronically viewed and signed by Physician Baylee on 01/24/2017 16:17 /
[2017-01-24] MEDS: LEVOFLOXACIN 500MG/D5W (PMX) 100 ML IVPB SCH (16:33)
[2017-01-24 16:34] LABS: BASOPHIL # 0.1 10^3/ul (0.0-0.1); BURR CELLS 2+; EOSINOPHILS # 0.1 10^3/ul (0.0-0.5); LYMPHOCYTES # 2.1 10^3/ul (0.8-2.9); MONOCYTE # 0.3 10^3/ul (0.3-0.9); NEUTROPHIL # 1.5 10^3/ul (1.6-7.5)
--- NOTE | 2017-01-24 17:08 | PSY ---
Date/Time of Note Date/Time of Note DATE: 01/24/17 TIME: 17:03 Psychiatric Subjective Eval Consent Pt consented to telemedicine: Yes Subjective Evaluation Patient location: inpatient Chief Complaint: I ma better now Reason for consult: Assess for risk of self harm, medical competency History of present illness Spoke with Dr Trinidad: re-eval requested, pt denies any SI. Chart reviewed.This is a 56-year old male who was referred for psychiatric assessment , as he has been not expressing any depression and now denies any thoughts that life is not worth living. He was evaluated by Dr Marti on 01/23/17, 1:1 sitter was recommended. Pt states, he feels much better because he had a chance to talk about his feeling. He said he would never harm himself. He denies any si or hi, deneis psychosis, denies feeling hopeless or helpless. Past psychiatric history denies; he was on Celexa in the past from his PCP Hospitalization: no Family History Problems Family History Problems: (1) Family history of cardiac disorder Relations: 33 FATHER, onset: 60 years & older (2) Family history of hypertension Relations: 33 FATHER Medical history Problems Medical Problems: (1) ACS (acute coronary syndrome) Status: Acute (2) Chest pain Status: Acute (3) Constipation Status: Acute (4) Dermatitis Status: Acute (5) Encounter for medication refill Status: Acute (6) Fever and chills Status: Acute (7) Injury of hand Status: Acute (8) Itching Status: Acute (9) Lactic acidosis Status: Acute (10) Nephrolithiasis Status: Acute (11) Pain of hand Status: Acute (12) Pain of left arm Status: Acute (13) Patient left before treatment completed Status: Acute (14) Peripheral edema Status: Acute (15) URI, acute Status: Acute Allergies: Coded Allergies: Penicillins (Verified Allergy, Intermediate, 01/19/17) Rash carvedilol (Verified Allergy, Intermediate, 01/19/17) Rash Substance Abuse Substance use: No known substance abuse Social History Marital status: single Level of education: some vocational training DPA/Conservatorship: No 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 Psychiatric Objective Eval Mental Status Examination: Appearance: Disheveled Eye Contact: Good Psychomotor Activity: Normal Behavior: Cooperative Speech: Clear AFFECT: Appropriate Mood: Appropriate/Full Though Process: Linear Thought Content: Normal Suicidal: No Homicidal: No On 72 hour hold: No Orientation: x4 Cognition: Alert Insight: Impared Judgement: Intact Laboratory Results Laboratory Tests Test 01/23/17 05:26 01/24/17 14:25 White Blood Count 5.010^3/ul 4.110^3/ul Red Blood Count 4.5510^6/ul 4.2810^6/ul Hemoglobin 10.8g/dl 10.3g/dl Hematocrit 35.3% 32.6% Mean Corpuscular Volume 77.6fl 76.2fl Mean Corpuscular Hemoglobin 23.7pg 24.1pg Mean Corpuscular Hemoglobin Concent 30.6g/dl 31.6g/dl Red Cell Distribution Width 19.9% 19.9% Platelet Count 05543^3/UL 02127^3/UL Mean Platelet Volume 11.5fl 11.0fl Neutrophils % 48.2% 37.0% Lymphocytes % 36.1% 50.0% Monocytes % 12.3% 7.0% Eosinophils % 2.0% 3.0% Basophils % 1.2% 3.0% Nucleated Red Blood Cells % 0.4/100WBC Neutrophils # 2.410^3/ul 1.510^3/ul Lymphocytes # 1.810^3/ul 2.110^3/ul Monocytes # 0.610^3/ul 0.310^3/ul Eosinophils # 0.110^3/ul 0.110^3/ul Basophils # 0.110^3/ul 0.110^3/ul Nucleated Red Blood Cells # 0.010^3/ul Sodium Level 139mmol/L 135mmol/L Potassium Level 3.9mmol/L 3.5mmol/L Chloride Level 101mmol/L 100mmol/L Carbon Dioxide Level 24mmol/L 24mmol/L Anion Gap 18 15 Blood Urea Nitrogen 25mg/dl 26mg/dl Creatinine 0.90mg/dl 0.81mg/dl Glucose Level 62mg/dl 86mg/dl Calcium Level 8.4mg/dl 8.3mg/dl Phosphorus Level 3.4mg/dl Albumin 2.8g/dl Assessment and Plan Assessment/Diagnosis [place] I: MAJOR DEPRESSIVE DISORDER RECURRENT MODERATE [place] II: DEFERED [place] III: PER RECORD [place] IV: SEVERE [place] V: GAF 40 Recommendation/Plan Medication Management AGREE WITH LEXAPRO. Psychotherapy SUPPROTIVE Follow-up/Disposition PT DOES NOT PRESENT DTS, DT, GD - REFER TO OUTPT THEN MEDICALLY CLEARED; OK TO D /C 1:1 SITTER. GEN GALLO MD January 24, 2017 17:08
[2017-01-24 20:06] VITALS: BP 113/66; RESP 20
[2017-01-24] MEDS: ATORVASTATIN 40 MG TAB PO SCH (20:33)
[2017-01-25] VITALS (10 sets, daily range): BP systolic 110–128; BP diastolic 78–95; PULSE 78–99; RESP 12–19
--- NOTE | 2017-01-25 03:31 | PN ---
DATE: 01/24/2017 SUBJECTIVE: The patient does have a right ureteral stone with right flank pain. The patient at the present is feeling comfortable, and he denies having any acute pain. The patient also does have a history of atrial fibrillation and history of seizure disorder, history of sick sinus syndrome, has pacemaker. He also does have methicillin-resistant Staphylococcus aureus in the nares, chronic depr ession. OBJECTIVE: VITAL SIGNS: His temperature today is 97.5, pulse 61, respirations 22, blood pressure 106/71. GENERAL: The patient did have a PICC line inserted today, and it had to be readjusted because the t ip of it was not in the proper place. LABORATORY: He refused the lab earlier today. His CBC shows a white count of 4.1, hemoglobin 10.3, hematocrit 32.6. BUN is 26, creatinine 0.81. Electrolytes: Sodium 135, potassium 3.5, chloride 1 00 and CO2 24. PT is 18.1, PTT 33.3, INR 1.49. Urine culture: No growth after 48 hours. The MRSA screen is positive for the nares, and it is multidrug resistant organism. The patient again had a PICC line inserted today, and hopefully that will prevent the need from poki ng him multiple times to start an IV. IMPRESSION: Right upper ureteral stone. Stone may be at the ureteropelvic junction as well. PLAN: Do cystoscopy, try to manipulate the stone and push it back into the kidney, then do extracor poreal shock wave lithotripsy and maybe insert a JJ stent which we will probably remove in a day or 2 after to make sure that there are no stone fragments obstructing the ureter. I have explained the procedure to the patient and the benefits and the risks, and he is agreeable to proceed. Dictated By: JOSE A NEWTON/FELIX Conf#: [id number] DID#: [id number]
[2017-01-25 06:12] LABS: ADD SCAN DIFF NO
[2017-01-25 06:39] LABS: BASOPHIL # 0.1 10^3/ul (0.0-0.1); BASOPHILS % 1.4 % (0.0-2.0); EOSINOPHILS # 0.1 10^3/ul (0.0-0.5); EOSINOPHILS % 2.1 % (0.0-7.0); LYMPHOCYTES # 1.5 10^3/ul (0.8-2.9); MEAN CORPUSCULAR HEMOGLOBIN 23.3 pg (29.0-33.0); MEAN CORPUSCULAR HGB CONC 30.3 g/dl (32.0-37.0); MEAN CORPUSCULAR VOLUME 76.9 fl (82.0-101.0); MEAN PLATELET VOLUME 11.5 fl (7.4-10.4); MONOCYTE # 0.6 10^3/ul (0.3-0.9); MONOCYTES % 14.3 % (0.0-11.0); NEUTROPHIL # 2.1 10^3/ul (1.6-7.5); NUCLEATED RED BLOOD CELLS% 0.9 /100WBC (0.0-0.0); PLATELET COUNT 190 10^3/UL (140-415); RED BLOOD COUNT 4.29 10^6/ul (4.70-6.10); RED CELL DISTRIBUTION WIDTH 20.1 % (11.5-14.5); WHITE BLOOD COUNT 4.3 10^3/ul (4.8-10.8)
[2017-01-25 06:42] LABS: INR 2.07; PROTIME 23.5 Sec (12.2-14.2); PT RATIO 1.8
[2017-01-25] MEDS ORDERED: SUCCINYLCHOLINE CHLORIDE 100 MG/5 ML SYG IV ONE (07:00)
[2017-01-25 07:05] LABS: POTASSIUM 3.4 mmol/L (3.5-5.1)
[2017-01-25 07:07] LABS: CREATININE 0.77 mg/dl (0.61-1.24)
[2017-01-25 07:08] LABS: CALCIUM 8.1 mg/dl (8.4-10.2)
[2017-01-25] MEDS: METOPROLOL 25 MG TAB PO SCH ×2 (09:00→21:51)
[2017-01-25] MEDS: VENLAFAXINE 75 MG TABLET PO SCH ×2 (09:00→21:50)
[2017-01-25] MEDS: DOCUSATE SODIUM 100 MG CAP PO SCH ×2 (09:00→21:50)
[2017-01-25] MEDS: LEVETIRACETAM 500 MG TAB PO SCH ×2 (09:00→21:50)
[2017-01-25] MEDS: FUROSEMIDE 40 MG TAB PO SCH (09:00)
[2017-01-25] MEDS: ESCITALOPRAM 10 MG TAB PO SCH (09:00)
[2017-01-25] MEDS: FAMOTIDINE 20 MG TAB PO SCH ×2 (09:00→21:51)
[2017-01-25] MEDS ORDERED: SOD CHLORIDE 0.9% 250 ML IV* ONE (09:00)
[2017-01-25] MEDS: MUPIROCIN 2% 22 GM OINT TOP SCH ×2 (09:11→21:50)
--- NOTE | 2017-01-25 14:39 | PN ---
Date/Time of Note Date/Time of Note DATE: 01/25/17 TIME: 14:33 Assessment/Plan VTE Prophylaxis VTE Prophylaxis Intervention: SCD's Lines/Catheters IV Catheter Type (from Nrs): PICC Line Central line still needed: Yes Urinary Cath still in place: No Assessment/Plan Chief Complaint/Hosp Course A/P: 56 M with: 1. Shortness of breath. The patient seems to be doing well on pacemaker. - f/u 2D echo to further evaluate probable cardiomegaly and pericardial effusion. 2. Obstructive calculus in right renal pelvis resulting in mild to moderate right hydronephrosis with probable infection. - Plan for cystoscopy + lithotripsy today, FFP to correct elevated INR, continue abx 3. Multiple renal cysts without masses on ultrasound. 5. 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 6. Chronic liver disease with mild hyperbilirubinemia. 7. Coronary artery disease, status post recent non-ST elevation myocardial infarction and percutaneous coronary intervention in 08/2016. 8. Chronic atrial fibrillation, rate controlled. 9. Chronic seizure disorder, controlled. 10. Congestive heart failure. 11. History of tobacco and illicit drug use. 12. History of sick sinus syndrome, status post pacemaker. 13. Methicillin-resistant Staphylococcus aureus nares on Bactroban. 14. Chronic depression and suicidal behavior - effexor 15. Iron deficiency anemia. Problems: Subjective 24 Hr Interval Summary Free Text/Dictation Pt awaiting procedure for later today. Re-evaluated by tele psych yesterday, now off 1:1 siter. Exam/Review of Systems Vital Signs Vitals Vital Signs Date Time Temp Pulse Resp B/P Pulse Ox O2 Delivery O2 Flow Rate FiO2 01/25/17 12:00 Nasal Cannula 4.0 01/25/17 08:09 97.4 93 18 113/81 93 Intake and Output 01/24/17 01/24/17 01/25/17 15:00 23:00 07:00 Intake Total 480 ml 240 ml Output Total 700 ml 450 ml Balance -220 ml -210 ml Exam GENERAL: The patient was arousable, but very lethargic; however, he seemed oriented and continue to refuse blood draw, and IV drugs. HEENT: Head is normocephalic. Pupils are equal and reactive. Mucous membranes were moist. Facemask in place. CHEST: Severely reduced air entry bilaterally. No crackles or wheezes, however. CARDIOVASCULAR: Irregularly irregular heart sounds. No murmurs. ABDOMEN: Obese, soft, nontender with normoactive bowel sounds. EXTREMITIES: Bilateral leg edema, trace. Results Result Diagram: 01/25/17 0520 01/25/17 0520 Results 24 hrs Laboratory Tests Test 01/25/17 05:20 White Blood Count 4.3 L Red Blood Count 4.29 L Hemoglobin 10.0 L Hematocrit 33.0 L Mean Corpuscular Volume 76.9 L Mean Corpuscular Hemoglobin 23.3 L Mean Corpuscular Hemoglobin Concent 30.3 L Red Cell Distribution Width 20.1 H Platelet Count 190 Mean Platelet Volume 11.5 H Neutrophils % 48.0 Lymphocytes % 34.0 Monocytes % 14.3 H Eosinophils % 2.1 Basophils % 1.4 Nucleated Red Blood Cells % 0.9 H Neutrophils # 2.1 Lymphocytes # 1.5 Monocytes # 0.6 Eosinophils # 0.1 Basophils # 0.1 Nucleated Red Blood Cells # 0.0 Prothrombin Time 23.5 #H Prothrombin Time Ratio 1.8 INR International Normalized Ratio 2.07 Activated Partial Thromboplast Time 44.0 H Sodium Level 137 Potassium Level 3.4 L Chloride Level 101 Carbon Dioxide Level 24 Anion Gap 15 Blood Urea Nitrogen 24 H Creatinine 0.77 Glucose Level 76 Calcium Level 8.1 L Medications Medications Current Medications Atorvastatin Calcium (Lipitor) 40 mg HS PO Last administered on 01/24/17 20:33 ; Admin Dose 40 MG; Start 01/19/17 at 21:00 Escitalopram Oxalate (Lexapro) 10 mg DAILY PO Last administered on 01/24/17 09: 49; Admin Dose 10 MG; Start 01/19/17 at 09:00 Levetiracetam (Keppra) 500 mg BID PO Last administered on 01/24/17 20:33; Admin Dose 500 MG; Start 01/19/17 at 02:00 Ondansetron HCl (Zofran Inj) 4 mg Q6H PRN IV NAUSEA AND/OR VOMITING Last administered on 01/19/17 16:15; Admin Dose 4 MG; Start 01/19/17 at 02:30 Acetaminophen (Tylenol Tab) 650 mg Q6H PRN PO PAIN LEVEL 1-3 OR FEVER; Start at 02:30 Morphine Sulfate (morphine) 2 mg Q4H PRN IV PAIN LEVEL 7-10 Last administered on 01/19/17 13:19; Admin Dose 2 MG; Start 01/19/17 at 02:30 Zolpidem Tartrate (Ambien) 5 mg QHS PRN PO INSOMNIA Last administered on 23:37; Admin Dose 5 MG; Start 01/19/17 at 02:30 Bisacodyl (Dulcolax) 5 mg DAILY PRN PO CONSTIPATION Last administered on 12:57; Admin Dose 5 MG; Start 01/19/17 at 02:30 Famotidine (Pepcid) 20 mg Q12 PO Last administered on 01/24/17 20:33; Admin Dose 20 MG; Start 01/19/17 at 02:30 Mupirocin 1 applic 1 applic BID TOP Last administered on 01/25/17 09:11; Admin Dose 1 APPLIC; Start 01/20/17 at 11:00 Levofloxacin/ Dextrose (Levaquin 500mg/ D5W 100 ml (Pmx)) 100 ml @ 100 mls/hr Q24H IVPB Last administered on 01/24/17 16:33; Admin Dose 100 MLS/HR; Start 01/20/17 at 15:35 Enoxaparin Sodium (Lovenox) 95 mg Q12 SC Last administered on 01/23/17 21:01; Admin Dose 95 MG; Start 01/20/17 at 21:00; Status Future Hold Tramadol HCl (Ultram) 50 mg Q6H PRN PO PAIN Last administered on 01/22/17 13:02 ; Admin Dose 50 MG; Start 01/20/17 at 16:00 Metoprolol Tartrate (Lopressor) 12.5 mg BID PO Last administered on 01/24/17 20 :33; Admin Dose 12.5 MG; Start 01/21/17 at 13:00 Diphenhydramine HCl (Benadryl) 25 mg Q12H PRN PO ITCHING Last administered on 03:31; Admin Dose 25 MG; Start 01/22/17 at 03:30 Venlafaxine HCl (Effexor) 75 mg BID PO Last administered on 01/24/17 20:33; Admin Dose 75 MG; Start 01/23/17 at 21:00 Docusate Sodium (Colace) 100 mg Q12 PO Last administered on 01/24/17 20:33; Admin Dose 100 MG; Start 01/23/17 at 21:00 Furosemide (Lasix) 40 mg DAILY PO Last administered on 01/24/17 09:48; Admin Dose 40 MG; Start 01/24/17 at 09:00; Stop 01/27/17 at 08:59 IV Flush (NS 10 ml) 10 ml PRN PRN IV IV PROTOCOL; Start 01/24/17 at 12:30 [place] January 25, 2017 14:39
[2017-01-25] MEDS: LEVOFLOXACIN 500MG/D5W (PMX) 100 ML IVPB SCH (15:35)
--- NOTE | 2017-01-25 17:08 | CONS ---
Date/Time of Note Date/Time of Note DATE: 01/25/17 TIME: 17:07 Assessment/Plan Assessment/Plan Additional Assessment/Plan Preoperative cardiac risk stratification Hydronephrosis with obstructive right renal calculi Compensated systolic congestive heart failure Cardiomyopathy with ejection fraction 30% Atrial fibrillation, not on anticoagulation History of CVA DNR Medication noncompliance -Unfortunately, patient with intermittent compliance with medications. Ideally he should be on anticoagulation postprocedure secondary to history of atrial fibrillation, CVA and emboli causing ND in the past. This was explained to the patient on multiple occasions and he continues to refuse. Awaiting surgical procedure. Consultation Date/Type/Reason Admit Date/Time January 18, 2017 at 21:52 Type of Consultation: cv 24 HR Interval Summary Free Text/Dictation Denies chest pain, shortness of breath, palpitations Exam/Review of Systems Vital Signs Vitals Vital Signs Date Time Temp Pulse Resp B/P Pulse Ox O2 Delivery O2 Flow Rate FiO2 01/25/17 12:00 Nasal Cannula 4.0 01/25/17 08:09 97.4 93 18 113/81 93 Intake and Output 01/24/17 01/24/17 01/25/17 15:00 23:00 07:00 Intake Total 480 ml 240 ml Output Total 700 ml 450 ml Balance -220 ml -210 ml Exam Sleeping but arousable, no apparent distress Head: normocephalic Respiratory: other (Coarse breath sounds bilaterally, no wheezing) Cardiovascular: irregular rhythm, other (S1-S2 heard) Gastrointestinal: bowel sounds, non-tender, other (No guarding), soft Extremities: edema Results Result Diagram: 01/25/17 0520 01/25/17 0520 Results 24 hrs Laboratory Tests Test 01/25/17 05:20 White Blood Count 4.3 L Red Blood Count 4.29 L Hemoglobin 10.0 L Hematocrit 33.0 L Mean Corpuscular Volume 76.9 L Mean Corpuscular Hemoglobin 23.3 L Mean Corpuscular Hemoglobin Concent 30.3 L Red Cell Distribution Width 20.1 H Platelet Count 190 Mean Platelet Volume 11.5 H Neutrophils % 48.0 Lymphocytes % 34.0 Monocytes % 14.3 H Eosinophils % 2.1 Basophils % 1.4 Nucleated Red Blood Cells % 0.9 H Neutrophils # 2.1 Lymphocytes # 1.5 Monocytes # 0.6 Eosinophils # 0.1 Basophils # 0.1 Nucleated Red Blood Cells # 0.0 Prothrombin Time 23.5 #H Prothrombin Time Ratio 1.8 INR International Normalized Ratio 2.07 Activated Partial Thromboplast Time 44.0 H Sodium Level 137 Potassium Level 3.4 L Chloride Level 101 Carbon Dioxide Level 24 Anion Gap 15 Blood Urea Nitrogen 24 H Creatinine 0.77 Glucose Level 76 Calcium Level 8.1 L Medications Medications Current Medications Atorvastatin Calcium (Lipitor) 40 mg HS PO Last administered on 01/24/17 20:33 ; Admin Dose 40 MG; Start 01/19/17 at 21:00 Escitalopram Oxalate (Lexapro) 10 mg DAILY PO Last administered on 01/24/17 09: 49; Admin Dose 10 MG; Start 01/19/17 at 09:00 Levetiracetam (Keppra) 500 mg BID PO Last administered on 01/24/17 20:33; Admin Dose 500 MG; Start 01/19/17 at 02:00 Ondansetron HCl (Zofran Inj) 4 mg Q6H PRN IV NAUSEA AND/OR VOMITING Last administered on 01/19/17 16:15; Admin Dose 4 MG; Start 01/19/17 at 02:30 Acetaminophen (Tylenol Tab) 650 mg Q6H PRN PO PAIN LEVEL 1-3 OR FEVER; Start at 02:30 Morphine Sulfate (morphine) 2 mg Q4H PRN IV PAIN LEVEL 7-10 Last administered on 01/19/17 13:19; Admin Dose 2 MG; Start 01/19/17 at 02:30 Zolpidem Tartrate (Ambien) 5 mg QHS PRN PO INSOMNIA Last administered on 23:37; Admin Dose 5 MG; Start 01/19/17 at 02:30 Bisacodyl (Dulcolax) 5 mg DAILY PRN PO CONSTIPATION Last administered on 12:57; Admin Dose 5 MG; Start 01/19/17 at 02:30 Famotidine (Pepcid) 20 mg Q12 PO Last administered on 01/24/17 20:33; Admin Dose 20 MG; Start 01/19/17 at 02:30 Mupirocin 1 applic 1 applic BID TOP Last administered on 01/25/17 09:11; Admin Dose 1 APPLIC; Start 01/20/17 at 11:00 Levofloxacin/ Dextrose (Levaquin 500mg/ D5W 100 ml (Pmx)) 100 ml @ 100 mls/hr Q24H IVPB Last administered on 01/24/17 16:33; Admin Dose 100 MLS/HR; Start 01/20/17 at 15:35 Enoxaparin Sodium (Lovenox) 95 mg Q12 SC Last administered on 01/23/17 21:01; Admin Dose 95 MG; Start 01/20/17 at 21:00; Status Future Hold Tramadol HCl (Ultram) 50 mg Q6H PRN PO PAIN Last administered on 01/22/17 13:02 ; Admin Dose 50 MG; Start 01/20/17 at 16:00 Metoprolol Tartrate (Lopressor) 12.5 mg BID PO Last administered on 01/24/17 20 :33; Admin Dose 12.5 MG; Start 01/21/17 at 13:00 Diphenhydramine HCl (Benadryl) 25 mg Q12H PRN PO ITCHING Last administered on 03:31; Admin Dose 25 MG; Start 01/22/17 at 03:30 Venlafaxine HCl (Effexor) 75 mg BID PO Last administered on 01/24/17 20:33; Admin Dose 75 MG; Start 01/23/17 at 21:00 Docusate Sodium (Colace) 100 mg Q12 PO Last administered on 01/24/17 20:33; Admin Dose 100 MG; Start 01/23/17 at 21:00 Furosemide (Lasix) 40 mg DAILY PO Last administered on 01/24/17 09:48; Admin Dose 40 MG; Start 01/24/17 at 09:00; Stop 01/27/17 at 08:59 IV Flush (NS 10 ml) 10 ml PRN PRN IV IV PROTOCOL; Start 01/24/17 at 12:30 Louis Montalvo DO January 25, 2017 17:08
[2017-01-25] MEDS ORDERED: FENTAnyl 50 MCG/ML VIAL ONE (17:36)
[2017-01-25] MEDS ORDERED: ROCURONIUM 50 MG INJ ONE (17:36)
[2017-01-25] MEDS ORDERED: ETOMIDATE 20 MG INJ ONE (17:36)
[2017-01-25] MEDS ORDERED: LIDOCAINE 2% 20 ML UROJET SYRINGE ONE (17:44)
[2017-01-25] MEDS ORDERED: PHENYLephrine (100 MCG/ML) 5ML SYG ONE (17:45)
[2017-01-25] MEDS ORDERED: FUROSEMIDE 20 MG INJ ONE (18:26)
[2017-01-25] MEDS ORDERED: ONDANSETRON 4 MG INJ ONE (19:15)
[2017-01-25] MEDS ORDERED: DEXAMETHASONE 4 MG/ML 1 ML INJ ONE (19:15)
[2017-01-25] MEDS ORDERED: METOCLOPRAMIDE 10 MG INJ ONE (19:15)
[2017-01-25] MEDS ORDERED: NEOSTIGMINE 3 MG/3 ML SYRINGE ONE (19:26)
[2017-01-25] MEDS ORDERED: GLYCOPYRROLATE 0.4 MG INJ ONE (19:26)
[2017-01-25] MEDS ORDERED: CIPROFLOXACIN 400MG/D5W 200 ML ONE (19:26)
[2017-01-25] MEDS ORDERED: ALBUMIN HUMAN 5% 250 ML IV PRN (19:30)
[2017-01-25] MEDS ORDERED: EPHEDrine SULFATE 50 MG/5 ML SYG IV PRN (19:30)
[2017-01-25] MEDS ORDERED: DIPHENHYDRAMINE 50 MG INJ IV PRN (19:30)
[2017-01-25] MEDS ORDERED: FENTAnyl 50 MCG/ML VIAL IV PRN ×2 (19:30)
[2017-01-25] MEDS ORDERED: morphine (1 MG/ML) 10ML SYRINGE IV PRN ×2 (19:30)
[2017-01-25] MEDS ORDERED: ONDANSETRON 4 MG INJ IV PRN (19:30)
[2017-01-25] MEDS ORDERED: MEPERIDINE 25 MG INJ IV PRN (19:30)
[2017-01-25] MEDS: ATORVASTATIN 40 MG TAB PO SCH (21:50)
[2017-01-25] MEDS: DIPHENHYDRAMINE 25 MG CAP PO PRN (22:26)
--- NOTE | 2017-01-25 23:35 | OPR ---
DATE OF OPERATION: 01/25/2017 PREOPERATIVE DIAGNOSIS: Right upper ureteral versus right ureteropelvic junction stone. POSTOPERATIVE DIAGNOSIS: Right ureteropelvic junction stone. OPERATION PERFORMED: Cystoscopy, stone manipulation, insertion of right ureteral JJ stent, and we s tarted giving extracorporeal shockwave lithotripsy, but we did not finish. The patient was having a lot of PVCs, and the EKG monitoring machine that comes in with the ESWL machine did not work to gat e the patient and prevent the PVCs. Therefore, we had to stop the treatment, and we rescheduled it for tomorrow at 5:30 p.m. to do the extracorporeal shockwave lithotripsy. TECHNIQUE: The patient was brought to the operating room. General anesthesia was induced. The pat ient was then put in the lithotomy position on the lithotripsy machine table. Fluoroscopy was done. The stone was visualized. Then the patient was given 400 mg of Cipro IV. Then the genital area w as prepped and draped in the usual sterile manner. A #21-[place] cystoscope sheath was introduced th rough the penile urethra all the way to the bladder. Once in the bladder, urine was collected for c ulture and sensitivity. Then the right ureteral orifice was identified and cannulated with a 5-Fren ch open-ended ureteral catheter, and that was advanced into the ureter, and a 0.035 Glidewire was pu t through it and advanced all the way up to the level of the stone. We passed the stone, and it ayush eared that the stone is at the ureteropelvic junction. Then I pulled out the Glidewire and used a m ixture of 2% lidocaine jelly and normal saline and tried to flush the stone or push the stone away f rom the UPJ. After multiple attempts, the stone would not move. Therefore, we decided to leave the stone in that position, and then I inserted a 6 x 26 JJ stent. I used a longer JJ stent because th e ureter was going over the spine, and I thought a shorter JJ stent may not have enough length to cu rl in the kidney and curl into the bladder. Therefore, I also tried to aspirate urine from the kidn ey, and as I aspirated through the open-ended ureteral catheter, nothing would come out. Therefore, I went ahead and re-inserted the Glidewire into the kidney, and on the Glidewire, I advanced the 6- [place] x 26 cm long JJ stent and manipulated it so the proximal end curled in the kidney and the dis cliff end curling into the bladder. At that moment I emptied the bladder, removed the cystoscope and inserted a 16-[place] Price catheter. Once the catheter was inserted into the bladder, the black str ing that is attached to the JJ stent was taped to the Price catheter using 3 pieces of Tegaderm. At that moment, we repositioned the patient in the supine position, and then he was repositioned to [facility] the stone was visualized on the 2 planes of the lithotripsy machine, and then the x-ray field wa s coned down to reduce radiation, and then we started giving him the shock waves, started at low vol tage, 3 and then 3.5 and went up to 4. As we went up with the voltage, then the patient started hav ing PVCs. We stopped and then tried again. He again started having PVCs. Therefore we decided to gate the treatment, and the pyrotechnician with the shockwave machine had his machine connected to the [employer] onitor to try to get an EKG that we could use. However, his machine was not working. We tried mult iple times. We tried other machines from the hospital, but they would not fit, they would not conne ct to the shockwave machine. After that, we tried to use low voltage and fast rate, and that did wo rk for a while, but then again the patient started having too many PVCs. Therefore, we decided at t hat moment to stop and then will have to bring the patient back and try to break the stone when we c ould gate the shock waves to the heart rate. In total, we gave 1439 shocks, but these shocks were a t low voltage of 3, 3.5 and 4. We did give for a short time, less than a minute of energy of 7 and at a rate of 60, but that also did not work. He immediately started having PVCs. The total SMLI wa s 75.4. The patient was given 10 mg of Lasix at the start of the procedure as he was draining some blood through the Price catheter, and there was blood coming out from the right kidney as I did the initial when I passed the JJ stent. Since we stopped, we rescheduled the patient tomorrow at 5:30 p .m. to try to do the ESWL treatment with the hope that we will have the proper monitor that works an d could gauge the treatment to the machine as well. The patient tolerated the procedure well and wa s transferred to the recovery room in stable and satisfactory condition. Dictated By: JOSE A NEWTON/FELIX Conf#: [id number] DID#: [id number]
[2017-01-26] VITALS (11 sets, daily range): BP systolic 95–111; BP diastolic 66–78; PULSE 66–70; RESP 11–19
[2017-01-26] MEDS: morphine 2 MG INJ IV PRN (01:32)
[2017-01-26 06:23] LABS: ADD SCAN DIFF NO
[2017-01-26 06:28] LABS: ABNORMAL IP MESSAGE 1; HEMATOCRIT 34.9 % (42.0-52.0); HEMOGLOBIN 10.8 g/dl (14.0-18.0); MEAN CORPUSCULAR HEMOGLOBIN 23.6 pg (29.0-33.0); MEAN CORPUSCULAR HGB CONC 30.9 g/dl (32.0-37.0); MEAN CORPUSCULAR VOLUME 76.4 fl (82.0-101.0); MEAN PLATELET VOLUME 11.9 fl (7.4-10.4); PLATELET COUNT 180 10^3/UL (140-415); RED BLOOD COUNT 4.57 10^6/ul (4.70-6.10); RED CELL DISTRIBUTION WIDTH 19.8 % (11.5-14.5); WHITE BLOOD COUNT 1.8 10^3/ul (4.8-10.8)
[2017-01-26 06:46] LABS: INR 2.05; POTASSIUM 3.7 mmol/L (3.5-5.1); PROTIME 23.3 Sec (12.2-14.2); PT RATIO 1.8
[2017-01-26 06:47] LABS: PARTIAL THROMBOPLASTIN TIME 43.4 Sec (25.0-35.0)
[2017-01-26 06:49] LABS: CALCIUM 8.2 mg/dl (8.4-10.2); CREATININE 0.76 mg/dl (0.61-1.24)
[2017-01-26] MEDS: ESCITALOPRAM 10 MG TAB PO SCH (09:00)
[2017-01-26] MEDS: METOPROLOL 25 MG TAB PO SCH ×2 (09:00→21:00)
[2017-01-26] MEDS: LEVETIRACETAM 500 MG TAB PO SCH ×2 (09:00→21:17)
[2017-01-26] MEDS: FUROSEMIDE 40 MG TAB PO SCH (09:00)
[2017-01-26] MEDS: FAMOTIDINE 20 MG TAB PO SCH ×2 (09:00→21:17)
[2017-01-26] MEDS: VENLAFAXINE 75 MG TABLET PO SCH ×2 (09:00→21:17)
[2017-01-26] MEDS: DOCUSATE SODIUM 100 MG CAP PO SCH ×2 (09:00→21:22)
[2017-01-26] MEDS: MUPIROCIN 2% 22 GM OINT TOP SCH ×2 (09:33→21:18)
[2017-01-26 10:56] LABS: LYMPHOCYTES # 0.2 10^3/ul (0.8-2.9); NEUTROPHIL # 1.5 10^3/ul (1.6-7.5)
[2017-01-26 10:57] LABS: OVALOCYTES 1+; TARGET CELLS 1+
--- NOTE | 2017-01-26 13:54 | PN ---
Date/Time of Note Date/Time of Note DATE: 01/26/17 TIME: 13:48 Assessment/Plan VTE Prophylaxis VTE Prophylaxis Intervention: SCD's Lines/Catheters IV Catheter Type (from Nrs): PICC Line Central line still needed: Yes Urinary Cath still in place: Yes Reason Cath still needed: urinary retention Assessment/Plan Chief Complaint/Hosp Course A/P: 56 M with: 1. Shortness of breath. The patient seems to be doing well on pacemaker, overall improved. -monitor for now. 2. Obstructive calculus in right renal pelvis resulting in mild to moderate right hydronephrosis with probable infection. Again, cystoscopy performed yesterday, but not completed (PVC's) - Plan for lithotripsy today, continue abx 3. Multiple renal cysts without masses on ultrasound. 5. 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 6. Chronic liver disease with mild hyperbilirubinemia. 7. Coronary artery disease, status post recent non-ST elevation myocardial infarction and percutaneous coronary intervention in 08/2016. 8. Chronic atrial fibrillation, rate controlled. 9. Chronic seizure disorder, controlled. 10. Congestive heart failure. 11. History of tobacco and illicit drug use. 12. History of sick sinus syndrome, status post pacemaker. 13. Methicillin-resistant Staphylococcus aureus nares on Bactroban. 14. Chronic depression and suicidal behavior - effexor 15. Iron deficiency anemia. Problems: Subjective 24 Hr Interval Summary Free Text/Dictation Pt had cystoscopy performed yesterday, but lithotripsy portion not able to be performed yesterday (sec to PVC's) - rescheduled for today. Exam/Review of Systems Vital Signs Vitals Vital Signs Date Time Temp Pulse Resp B/P Pulse Ox O2 Delivery O2 Flow Rate FiO2 01/26/17 12:25 Nasal Cannula 2.0 01/26/17 08:03 97.6 73 15 105/73 100 Intake and Output 01/25/17 01/25/17 01/26/17 15:00 23:00 07:00 Intake Total 1110 ml 360 ml Output Total 750 ml 500 ml Balance 360 ml -140 ml Exam GENERAL: The patient lying in bed HEENT: Head is normocephalic. Pupils are equal and reactive. CHEST: some reduced air entry bilaterally. No crackles or wheezes, however. CARDIOVASCULAR: Irregularly irregular heart sounds. No murmurs. ABDOMEN: Obese, soft, nontender with normoactive bowel sounds. EXTREMITIES: Bilateral leg edema, trace. Results Result Diagram: 01/26/17 0445 01/26/17 0445 Results 24 hrs Laboratory Tests Test 01/26/17 04:45 White Blood Count 1.8 #L Red Blood Count 4.57 L Hemoglobin 10.8 L Hematocrit 34.9 L Mean Corpuscular Volume 76.4 L Mean Corpuscular Hemoglobin 23.6 L Mean Corpuscular Hemoglobin Concent 30.9 L Red Cell Distribution Width 19.8 H Platelet Count 180 Mean Platelet Volume 11.9 H Neutrophils % 85.0 H Lymphocytes % 11.0 L Monocytes % 1.0 Eosinophils % 1.0 Basophils % 2.0 Neutrophils # 1.5 L Lymphocytes # 0.2 L Monocytes # 0.0 L Eosinophils # 0.0 Basophils # 0.0 Target Cells 1+ Ovalocytes 1+ Prothrombin Time 23.3 H Prothrombin Time Ratio 1.8 INR International Normalized Ratio 2.05 Activated Partial Thromboplast Time 43.4 H Sodium Level 139 Potassium Level 3.7 Chloride Level 103 Carbon Dioxide Level 25 Anion Gap 15 Blood Urea Nitrogen 24 H Creatinine 0.76 Glucose Level 93 Calcium Level 8.2 L Medications Medications Current Medications Atorvastatin Calcium (Lipitor) 40 mg HS PO Last administered on 01/25/17 21:50 ; Admin Dose 40 MG; Start 01/19/17 at 21:00 Escitalopram Oxalate (Lexapro) 10 mg DAILY PO Last administered on 01/24/17 09: 49; Admin Dose 10 MG; Start 01/19/17 at 09:00 Levetiracetam (Keppra) 500 mg BID PO Last administered on 01/25/17 21:50; Admin Dose 500 MG; Start 01/19/17 at 02:00 Ondansetron HCl (Zofran Inj) 4 mg Q6H PRN IV NAUSEA AND/OR VOMITING Last administered on 01/19/17 16:15; Admin Dose 4 MG; Start 01/19/17 at 02:30 Acetaminophen (Tylenol Tab) 650 mg Q6H PRN PO PAIN LEVEL 1-3 OR FEVER; Start at 02:30 Morphine Sulfate (morphine) 2 mg Q4H PRN IV PAIN LEVEL 7-10 Last administered on 01/26/17 01:32; Admin Dose 2 MG; Start 01/19/17 at 02:30 Zolpidem Tartrate (Ambien) 5 mg QHS PRN PO INSOMNIA Last administered on 23:37; Admin Dose 5 MG; Start 01/19/17 at 02:30 Bisacodyl (Dulcolax) 5 mg DAILY PRN PO CONSTIPATION Last administered on 12:57; Admin Dose 5 MG; Start 01/19/17 at 02:30 Famotidine (Pepcid) 20 mg Q12 PO Last administered on 01/25/17 21:51; Admin Dose 20 MG; Start 01/19/17 at 02:30 Mupirocin 1 applic 1 applic BID TOP Last administered on 01/26/17 09:33; Admin Dose 1 APPLIC; Start 01/20/17 at 11:00 Levofloxacin/ Dextrose (Levaquin 500mg/ D5W 100 ml (Pmx)) 100 ml @ 100 mls/hr Q24H IVPB Last administered on 01/24/17 16:33; Admin Dose 100 MLS/HR; Start 01/20/17 at 15:35 Tramadol HCl (Ultram) 50 mg Q6H PRN PO PAIN Last administered on 01/22/17 13:02 ; Admin Dose 50 MG; Start 01/20/17 at 16:00 Metoprolol Tartrate (Lopressor) 12.5 mg BID PO Last administered on 01/25/17 21 :51; Admin Dose 12.5 MG; Start 01/21/17 at 13:00 Diphenhydramine HCl (Benadryl) 25 mg Q12H PRN PO ITCHING Last administered on 22:26; Admin Dose 25 MG; Start 01/22/17 at 03:30 Venlafaxine HCl (Effexor) 75 mg BID PO Last administered on 01/25/17 21:50; Admin Dose 75 MG; Start 01/23/17 at 21:00 Docusate Sodium (Colace) 100 mg Q12 PO Last administered on 01/25/17 21:50; Admin Dose 100 MG; Start 01/23/17 at 21:00 Furosemide (Lasix) 40 mg DAILY PO Last administered on 01/24/17 09:48; Admin Dose 40 MG; Start 01/24/17 at 09:00; Stop 01/27/17 at 08:59 IV Flush (NS 10 ml) 10 ml PRN PRN IV IV PROTOCOL; Start 01/24/17 at 12:30 TRINY NATION January 26, 2017 13:54
--- NOTE | 2017-01-26 14:17 | RADRPT ---
PROCEDURE: Intraoperative imaging of the abdomen with fluoroscopy. CLINICAL INDICATION: Right urinary tract calculus. Intraoperative. TECHNIQUE: 22 images of the abdomen were obtained in the operating room with an image intensifier. No radiologist was in attendance. 183.9 seconds of fluoroscopy time was used. COMPARISON: Abdomen radiograph dated 01/22/2017. FINDINGS: Initial images demonstrate a stent in the right collecting system and right ureter. The calculus is present in the region of the proximal right ureter. Subsequent images demonstrate the calculus more inferiorly in the right ureter. IMPRESSION: 1. Intraoperative imaging of the abdomen with a calculus in the right ureter. RPTAT: QQ .Artem Solorzano MD, MD Date Time Electronically viewed and signed by .Artem Solorzano MD, on 01/26/2017 14:16 .R/
[2017-01-26] MEDS: LEVOFLOXACIN 500MG/D5W (PMX) 100 ML IVPB SCH (15:35)
--- NOTE | 2017-01-26 17:52 | OPPN ---
Date/Time of Note Date/Time of Note DATE: 01/26/17 TIME: 17:52 Post-Anesthesia Notes Post-Anesthesia Note Last documented vital signs Vital Signs Date Time Temp Pulse Resp B/P Pulse Ox O2 Delivery O2 Flow Rate FiO2 01/26/17 12:25 Nasal Cannula 2.0 01/26/17 08:03 97.6 73 15 105/73 100 Activity: WNL Respiratory function: WNL Cardiovascular function: WNL Mental status: Baseline Pain reasonably controlled: Yes Hydration appropriate: Yes Nausea/Vomiting absent: Yes KALIN MUELLER MD January 26, 2017 17:52
[2017-01-26] MEDS ORDERED: ROCURONIUM 50 MG INJ ONE (18:17)
[2017-01-26] MEDS ORDERED: SUCCINYLCHOLINE CHLORIDE 100 MG/5 ML SYG IV ONE (18:17)
[2017-01-26] MEDS ORDERED: ETOMIDATE 20 MG INJ ONE (18:17)
[2017-01-26] MEDS ORDERED: FENTAnyl 50 MCG/ML VIAL ONE (18:17)
[2017-01-26] MEDS ORDERED: PHENYLephrine (100 MCG/ML) 5ML SYG ONE (18:56)
[2017-01-26] MEDS ORDERED: EPHEDrine SULFATE 50 MG/5 ML SYG IV PRN (20:00)
[2017-01-26] MEDS ORDERED: ALBUMIN HUMAN 5% 250 ML IV PRN (20:00)
[2017-01-26] MEDS ORDERED: FENTAnyl 50 MCG/ML VIAL IV PRN ×2 (20:00)
[2017-01-26] MEDS ORDERED: ONDANSETRON 4 MG INJ IV PRN (20:00)
[2017-01-26] MEDS ORDERED: DIPHENHYDRAMINE 50 MG INJ IV PRN (20:00)
[2017-01-26] MEDS ORDERED: MEPERIDINE 25 MG INJ IV PRN (20:00)
--- NOTE | 2017-01-26 20:37 | OPR ---
DATE OF OPERATION: 01/26/2017 PREOPERATIVE DIAGNOSIS: Right ureteropelvic junction stone. POSTOPERATIVE DIAGNOSIS: Right ureteropelvic junction stone. PROCEDURE PERFORMED: Attempted right extracorporeal shock wave lithotripsy. However, as we even tree jacobo, the lithotripsy machine was gated to the patient's heartbeat, the patient started having many PVCs to a degree that the pacemaker took over and then every time the pacemaker takes over, his blo od pressure goes down. We tried to wait and waited and as soon as we tried the shock waves again, t he same thing happened. He received about 200 shock waves today. Therefore, it was not being varun ated and, therefore, I decided to cancel the ESWL. Then at a later date, if we were to treat the st one, we will have to do ureteroscopy and laser lithotripsy. TECHNIQUE: Again as mentioned above, the patient was brought to the operating room, had general ane sthesia, positioned on the lithotripsy machine table. The stone was localized and the patient the a dditional EKG machine monitor that it was used to gate the shock waves. As described earlier, the m inute we started that, he started having additional PVCs. He was having PVCs before the shock waves , but after the shock waves were started, then he started having more and more to a degree then the pacemaker took over. Then we waited. Once the pacemaker stopped and the patient's own rhythm went back on we started the ESWL again and the same thing happened. Therefore, we decided to stop and ca ncel procedure. Then once he reverted back to his usual rhythm, he was moved on his bed and then tr ansferred to recovery room in a stable condition. Dictated By: JOSE A NEWMAN MD BB/FELIX Conf#: [id number] DID#: [id number] CC: Brian Atwood;*End*
[2017-01-26] MEDS: ATORVASTATIN 40 MG TAB PO SCH (21:17)
--- NOTE | 2017-01-26 21:44 | RADRPT ---
PROCEDURE: Intraoperative imaging of the abdomen and pelvis with fluoroscopy. CLINICAL INDICATION: Abdominal pain. Intraoperative. TECHNIQUE: 5 images of the abdomen and pelvis were obtained in the operating room with an image in tensifier. No radiologist was in attendance. 16.3 seconds of fluoroscopy time was used. COMPARISON: 01/25/2017. FINDINGS: Images demonstrate a right ureteral stent in position and targeting of a calculus in the proximal ri ght ureter for ESWL. Surgical clips are present from previous cholecystectomy and there is an infer ior vena cava filter. IMPRESSION: 1. Satisfactory intraoperative imaging of the abdomen and pelvis. RPTAT: QQ .Artem Solorzano MD, MD Date Time Electronically viewed and signed by .Artem Solorzano MD, on 01/26/2017 21:43 .R/
[2017-01-27] MEDS: ACETAMINOPHEN 325 MG TAB PO PRN (03:40)
[2017-01-27 04:52] LABS: ADD SCAN DIFF NO
[2017-01-27 04:57] LABS: BASOPHILS % 0.2 % (0.0-2.0); HEMATOCRIT 35.1 % (42.0-52.0); HEMOGLOBIN 10.8 g/dl (14.0-18.0); LYMPHOCYTES # 0.7 10^3/ul (0.8-2.9); LYMPHOCYTES % 11.6 % (15.0-51.0); MEAN CORPUSCULAR HEMOGLOBIN 23.2 pg (29.0-33.0); MEAN CORPUSCULAR HGB CONC 30.8 g/dl (32.0-37.0); MEAN CORPUSCULAR VOLUME 75.5 fl (82.0-101.0); MEAN PLATELET VOLUME 11.2 fl (7.4-10.4); MONOCYTE # 0.6 10^3/ul (0.3-0.9); MONOCYTES % 10.7 % (0.0-11.0); NEUTROPHIL # 4.4 10^3/ul (1.6-7.5); NUCLEATED RED BLOOD CELLS # 0.1 10^3/ul (0.0-0.0); NUCLEATED RED BLOOD CELLS% 1.2 /100WBC (0.0-0.0); PLATELET COUNT 223 10^3/UL (140-415); RED BLOOD COUNT 4.65 10^6/ul (4.70-6.10); RED CELL DISTRIBUTION WIDTH 20.4 % (11.5-14.5); WHITE BLOOD COUNT 5.7 10^3/ul (4.8-10.8)
[2017-01-27 05:21] LABS: CALCIUM 8.2 mg/dl (8.4-10.2); CREATININE 0.73 mg/dl (0.61-1.24); POTASSIUM 3.7 mmol/L (3.5-5.1)
[2017-01-27 08:11] VITALS: BP 100/69; RESP 16
[2017-01-27] MEDS: METOPROLOL 25 MG TAB PO SCH ×2 (09:00→21:00)
--- NOTE | 2017-01-27 10:24 | OPPN ---
Date/Time of Note Date/Time of Note DATE: 01/27/17 TIME: 10:23 Post-Anesthesia Notes Post-Anesthesia Note Last documented vital signs Vital Signs Date Time Temp Pulse Resp B/P Pulse Ox O2 Delivery O2 Flow Rate FiO2 01/27/17 08:11 97.5 58 16 100/69 90 01/27/17 01:56 5.0 01/26/17 21:15 Nasal Cannula Activity: WNL Respiratory function: WNL Cardiovascular function: WNL Mental status: Baseline Pain reasonably controlled: Yes Hydration appropriate: Yes Nausea/Vomiting absent: Yes Comments Coagulation monitor ordered post-FFP transfusion today, he received 2 units FFP yesterday perioperatively. KALIN MUELLER MD January 27, 2017 10:24
[2017-01-27] MEDS: FAMOTIDINE 20 MG TAB PO SCH ×2 (11:09→20:49)
[2017-01-27] MEDS: VENLAFAXINE 75 MG TABLET PO SCH ×2 (11:09→20:49)
[2017-01-27] MEDS: ESCITALOPRAM 10 MG TAB PO SCH (11:09)
[2017-01-27] MEDS: DOCUSATE SODIUM 100 MG CAP PO SCH ×2 (11:09→20:49)
[2017-01-27] MEDS: LEVETIRACETAM 500 MG TAB PO SCH ×2 (11:09→20:49)
[2017-01-27] MEDS: MUPIROCIN 2% 22 GM OINT TOP SCH ×2 (11:13→20:53)
[2017-01-27 12:39] LABS: INR 1.78; PROTIME 20.9 Sec (12.2-14.2); PT RATIO 1.6
[2017-01-27 12:40] LABS: PARTIAL THROMBOPLASTIN TIME 36.5 Sec (25.0-35.0); THROMBIN TIME 18.2 SEC (13.8-19.1)
--- NOTE | 2017-01-27 15:05 | PDOCDIS ---
Discharge Instructions CONDITION Patient Condition: Stable HOME CARE INSTRUCTIONS: Special Diet: REGULAR TRINY NATION January 27, 2017 15:05
--- NOTE | 2017-01-27 15:42 | DS ---
DATE OF ADMISSION: 01/18/2017 DATE OF DISCHARGE: 01/27/2017 This is a 56-year-old male originally admitted on 01/19/2017, being discharged to a detention facility on 01/27/2017. HOSPITAL COURSE: The patient initially came in with weakness. He was found with some lactic acidos is. He was admitted and seen by the psychiatry team, cardiology team and urology team during this ho spital stay. He was found with an obstructing calculus in the right renal pelvis, resulting in a mi ld to moderate right hydronephrosis with probable infection, possibly the source of the patient's la ctic acidosis. He had a cystoscopy and lithotripsy performed by the urology team. He was also seen by a telepsychiatrist because of concerns of major depression. He was suggested to be started on Ef fexor medication as well. There was a 1:1 sitter placed for possible suicide ideation, although he was reassessed a few days later by the psychiatry team and was determined not to be in any kind of s uicidal ideation state of mind and the 1:1 sitter was stopped and he was continued on the Effexor me dicine. Over the course of his hospital stay, again, his sepsis and lactic acidosis improved. He w as back at his baseline status. He had a JJ stent apparently placed after the cystoscopy was perfor med. He had no signs of any hematuria, his vital signs are stable on day of discharge, and he will be discharged back to the detention facility today in improved condition. DISCHARGE MEDICATIONS: He will be sent with: 1. Tylenol 650 q.6 p.r.n. 2. Lipitor 40 mg at bedtime. 3. Dulcolax 5 mg daily p.r.n. 4. Benadryl 25 mg q.2h. p.r.n. 5. Colace 100 mg q.12h. 6. Lexapro 10 mg daily. 7. Pepcid 20 mg q.12h. 8. Keppra 500 mg b.i.d. 9. Levaquin 500 mg daily for 5 days. 10. Metoprolol 12.5 mg b.i.d. 11. Morphine 2 mg IV q.4 p.r.n. 12. Bactroban, apply topically b.i.d. 13. Zofran 4 mg IV q.6 p.r.n. 14. Ultram 50 mg q.6 p.r.n. 15. Effexor 75 mg b.i.d. 16. Ambien 5 mg daily at bedtime p.r.n. Follow up with primary care doctor in the clinic in the next 1 to 2 weeks. FINAL DIAGNOSES: 1. Lactic acidosis secondary to obstructing calculus in the right renal pelvis, resulting in mild t o moderate right hydronephrosis with probable infection status post cystoscopy and lithotripsy perfo rmed. 2. Shortness of breath. Improved. 3. History of suicide ideation and depression. Now improved on antidepressant medications. 4. Chronic liver disease with mild hyperbilirubinemia. 5. Previous cerebrovascular accident, with residual left-sided hemiparesis. 6. Chronic atrial fibrillation, rate controlled. 7. Chronic seizure disorder. 8. Congestive heart failure. 9. History of tobacco and illicit drug use in the past. 10. History of sick sinus syndrome in the past, status post pacemaker. 11. Methicillin-resistant Staphylococcus aureus positive infection of the nares. On Bactroban. 12. Chronic depression and suicide behavior in the past. 13. Iron deficiency anemia. Time spent discharging the patient was 45 minutes. Dictated By: TRINY NORWOOD Conf#: [id number] DID#: [id number]
[2017-01-27] MEDS: LEVOFLOXACIN 500 MG TAB PO SCH (16:31)
--- NOTE | 2017-01-27 16:31 | CONS ---
Date/Time of Note Date/Time of Note DATE: 01/27/17 TIME: 16:29 Assessment/Plan Assessment/Plan Additional Assessment/Plan Hydronephrosis with obstructive right renal calculi Compensated systolic congestive heart failure Cardiomyopathy with ejection fraction 30% Atrial fibrillation, not on anticoagulation History of CVA DNR Medication noncompliance -14, patient still with intermittent compliance. Patient with history of atrial fibrillation with recent AR with emboli likely secondary to noncompliance with anticoagulation. Would restart anticoagulation when okay by primary and surgery team no contraindication. Blood pressure on the lower end, would hold off on restarting LUZMA inhibitor at the current time. Continue beta- iraida as blood pressure and renal function permits. Restart Plavix if no contraindication. Consultation Date/Type/Reason Admit Date/Time January 18, 2017 at 21:52 Type of Consultation: cv 24 HR Interval Summary Free Text/Dictation Denies chest pain, shortness of breath, palpitation Exam/Review of Systems Vital Signs Vitals Vital Signs Date Time Temp Pulse Resp B/P Pulse Ox O2 Delivery O2 Flow Rate FiO2 01/27/17 08:11 97.5 58 16 100/69 90 01/27/17 01:56 5.0 01/26/17 21:15 Nasal Cannula Intake and Output 01/26/17 01/26/17 01/27/17 15:00 23:00 07:00 Intake Total 100 ml Output Total 290 ml Balance -190 ml Exam Following commands, becomes angry at times and uncooperative Constitutional: alert Head: normocephalic Respiratory: other (Coarse breath sounds bilaterally, no wheezing) Cardiovascular: irregular rhythm, other (S1-S2 heard), systolic murmur Gastrointestinal: bowel sounds, non-tender, other (No guarding), soft Extremities: edema Results Result Diagram: 01/27/17 1140 01/27/17 0045 Results 24 hrs Laboratory Tests Test 01/27/17 00:45 01/27/17 04:45 01/27/17 11:40 Sodium Level 135 Potassium Level 3.7 Chloride Level 103 Carbon Dioxide Level 26 Anion Gap 10 # Blood Urea Nitrogen 22 H Creatinine 0.73 Glucose Level 142 # Calcium Level 8.2 L White Blood Count 5.7 # Red Blood Count 4.65 L Hemoglobin 10.8 L Hematocrit 35.1 L Mean Corpuscular Volume 75.5 L Mean Corpuscular Hemoglobin 23.2 L Mean Corpuscular Hemoglobin Concent 30.8 L Red Cell Distribution Width 20.4 H Platelet Count 223 # 243 Mean Platelet Volume 11.2 H Neutrophils % 77.0 Lymphocytes % 11.6 L Monocytes % 10.7 Eosinophils % 0.0 Basophils % 0.2 Nucleated Red Blood Cells % 1.2 H Neutrophils # 4.4 Lymphocytes # 0.7 L Monocytes # 0.6 Eosinophils # 0.0 Basophils # 0.0 Nucleated Red Blood Cells # 0.1 H Prothrombin Time 20.9 H Prothrombin Time Ratio 1.6 INR International Normalized Ratio 1.78 Activated Partial Thromboplast Time 36.5 H Thrombin Time 18.2 Medications Medications Current Medications Atorvastatin Calcium (Lipitor) 40 mg HS PO Last administered on 01/26/17 21:17 ; Admin Dose 40 MG; Start 01/19/17 at 21:00 Escitalopram Oxalate (Lexapro) 10 mg DAILY PO Last administered on 01/27/17 11 :09; Admin Dose 10 MG; Start 01/19/17 at 09:00 Levetiracetam (Keppra) 500 mg BID PO Last administered on 01/27/17 11:09; Admin Dose 500 MG; Start 01/19/17 at 02:00 Ondansetron HCl (Zofran Inj) 4 mg Q6H PRN IV NAUSEA AND/OR VOMITING Last administered on 01/19/17 16:15; Admin Dose 4 MG; Start 01/19/17 at 02:30 Acetaminophen (Tylenol Tab) 650 mg Q6H PRN PO PAIN LEVEL 1-3 OR FEVER Last administered on 01/27/17 03:40; Admin Dose 650 MG; Start 01/19/17 at 02:30 Morphine Sulfate (morphine) 2 mg Q4H PRN IV PAIN LEVEL 7-10 Last administered on 01/26/17 01:32; Admin Dose 2 MG; Start 01/19/17 at 02:30 Zolpidem Tartrate (Ambien) 5 mg QHS PRN PO INSOMNIA Last administered on 23:37; Admin Dose 5 MG; Start 01/19/17 at 02:30 Bisacodyl (Dulcolax) 5 mg DAILY PRN PO CONSTIPATION Last administered on 12:57; Admin Dose 5 MG; Start 01/19/17 at 02:30 Famotidine (Pepcid) 20 mg Q12 PO Last administered on 01/27/17 11:09; Admin Dose 20 MG; Start 01/19/17 at 02:30 Mupirocin (Bactroban) 1 applic BID TOP Last administered on 01/27/17 11:13; Admin Dose 1 APPLIC; Start 01/20/17 at 11:00 Tramadol HCl (Ultram) 50 mg Q6H PRN PO PAIN Last administered on 01/22/17 13:02 ; Admin Dose 50 MG; Start 01/20/17 at 16:00 Metoprolol Tartrate (Lopressor) 12.5 mg BID PO Last administered on 01/25/17 21 :51; Admin Dose 12.5 MG; Start 01/21/17 at 13:00 Diphenhydramine HCl (Benadryl) 25 mg Q12H PRN PO ITCHING Last administered on 22:26; Admin Dose 25 MG; Start 01/22/17 at 03:30 Venlafaxine HCl (Effexor) 75 mg BID PO Last administered on 01/27/17 11:09; Admin Dose 75 MG; Start 01/23/17 at 21:00 Docusate Sodium (Colace) 100 mg Q12 PO Last administered on 01/27/17 11:09; Admin Dose 100 MG; Start 01/23/17 at 21:00 IV Flush (NS 10 ml) 10 ml PRN PRN IV IV PROTOCOL; Start 01/24/17 at 12:30 Levofloxacin (Levaquin) 500 mg DAILY@06 PO ; Start 01/27/17 at 15:00 Louis Montalvo DO January 27, 2017 16:31
[2017-01-27 20:28] VITALS: BP 102/62; RESP 16
[2017-01-27] MEDS: ATORVASTATIN 40 MG TAB PO SCH (20:49)
--- NOTE | 2017-01-27 23:56 | PN ---
DATE: 01/27/2017 SUBJECTIVE: The patient stated that he is comfortable, but he is nervous about being discharged. I have explained to him that the stone that is in his kidney we were not able to break it as he was having a lot of PVCs and then hypotension as the lithotripsy was started, even though he was gated to be able to do the lithotripsy without triggering PVCs that even did not help and he continued to have PVCs constantly and then the pacemaker took over and when that happened his blood pressure went down, so we had no choice but to stop his treatment yesterday. Today the Price catheter and the urine that is draining is clear PHYSICAL EXAMINATION: VITAL SIGNS: His temperature is 96.5, blood pressure is 102/62, respiration is 16 and pulse is 89. LABORATORY DATA: His CBC shows a white count of 5.7, hemoglobin 10.8, hematocrit 35.1. BUN is 22, creatinine 0.73, sodium 135, potassium 3.7, chloride 103, CO2 26. Urine culture that was taken 2 days ago at the time of surgery showed no growth in 48 hours. IMPRESSION: Right renal pelvic stone. The patient is status post cystoscopy, insertion of right ureteral JJ stent and a right extracorporeal shock wave lithotripsy. The procedure was done the day before yesterday and again yesterday, but in either situation it was not completed because of cardiac arrhythmias, the patient having a lot of PVCs and then going into under control of the pacemaker, but when that happened he became hypotensive as well so we had to stop the procedure. The recommendation is that we shall keep the JJ stent in place for a couple of weeks and then one could do a cystoscopy with right ureteroscopy and try to break the stone with the laser and that should not affect his arrhythmias and then we could basket the stone fragments out and try to clean his kidney from this obstructing stone. I explained that to the patient and we shall arrange to do it if he goes to a custodial, so we could bring him back and also we will need to have an authorization from his insurance for the procedure. Dictated By: JOSE A NEWTON/FELIX Conf#: [id number] DID#: [id number] CC: BENITO FAYE DO; Brian Atwood;*EndCC* MTDD
[2017-01-28] MEDS: traMADol 50 MG TAB PO PRN (01:31)
[2017-01-28 05:10] LABS: ADD SCAN DIFF NO
[2017-01-28 05:16] LABS: BASOPHILS % 0.2 % (0.0-2.0); EOSINOPHILS # 0.1 10^3/ul (0.0-0.5); EOSINOPHILS % 0.8 % (0.0-7.0); HEMOGLOBIN 10.1 g/dl (14.0-18.0); LYMPHOCYTES # 1.1 10^3/ul (0.8-2.9); LYMPHOCYTES % 17.8 % (15.0-51.0); MEAN CORPUSCULAR HEMOGLOBIN 23.2 pg (29.0-33.0); MEAN CORPUSCULAR HGB CONC 30.6 g/dl (32.0-37.0); MEAN CORPUSCULAR VOLUME 75.7 fl (82.0-101.0); MEAN PLATELET VOLUME 11.9 fl (7.4-10.4); MONOCYTE # 0.8 10^3/ul (0.3-0.9); MONOCYTES % 13.5 % (0.0-11.0); NEUTROPHIL # 4.2 10^3/ul (1.6-7.5); NEUTROPHILS % 67.5 % (39.0-77.0); NUCLEATED RED BLOOD CELLS # 0.1 10^3/ul (0.0-0.0); NUCLEATED RED BLOOD CELLS% 1.3 /100WBC (0.0-0.0); PLATELET COUNT 222 10^3/UL (140-415); RED BLOOD COUNT 4.36 10^6/ul (4.70-6.10); RED CELL DISTRIBUTION WIDTH 20.3 % (11.5-14.5); WHITE BLOOD COUNT 6.2 10^3/ul (4.8-10.8)
[2017-01-28] MEDS: LEVOFLOXACIN 500 MG TAB PO SCH (05:25)
[2017-01-28] MEDS: BISACODYL (EC) 5 MG TAB PO PRN (05:25)
[2017-01-28 05:40] LABS: POTASSIUM 3.4 mmol/L (3.5-5.1)
[2017-01-28 05:43] LABS: CREATININE 0.82 mg/dl (0.61-1.24)
[2017-01-28 07:30] VITALS: BP 102/70; RESP 16
[2017-01-28] MEDS: VENLAFAXINE 75 MG TABLET PO SCH ×4 (08:53→23:52)
[2017-01-28] MEDS: FAMOTIDINE 20 MG TAB PO SCH ×4 (08:53→23:52)
[2017-01-28] MEDS: DOCUSATE SODIUM 100 MG CAP PO SCH ×4 (08:53→23:52)
[2017-01-28] MEDS: LEVETIRACETAM 500 MG TAB PO SCH ×4 (08:53→23:52)
[2017-01-28] MEDS: ESCITALOPRAM 10 MG TAB PO SCH (08:54)
[2017-01-28] MEDS: MUPIROCIN 2% 22 GM OINT TOP SCH ×4 (08:55→23:54)
[2017-01-28] MEDS: METOPROLOL 25 MG TAB PO SCH ×2 (09:00→20:58)
[2017-01-28] MEDS: morphine 2 MG INJ IV PRN (09:01)
[2017-01-28] MEDS: ONDANSETRON 4 MG INJ IV PRN (12:40)
--- NOTE | 2017-01-28 12:47 | CONS ---
Date/Time of Note Date/Time of Note DATE: 01/28/17 TIME: 12:45 Assessment/Plan Assessment/Plan Additional Assessment/Plan Hydronephrosis with obstructive right renal calculi Compensated systolic congestive heart failure Cardiomyopathy with ejection fraction 25% Atrial fibrillation, not on anticoagulation History of CVA DNR Medication noncompliance - Patient with history of atrial fibrillation with recent ME with emboli likely secondary to noncompliance with anticoagulation. Would restart anticoagulation when okay by primary and surgery team if no contraindication. Blood pressure on the lower end, would hold off on restarting LUZMA inhibitor at the current time. Continue beta-iraida as blood pressure and renal function permits. Restart Plavix if no contraindication. Consultation Date/Type/Reason Admit Date/Time January 18, 2017 at 21:52 Type of Consultation: cv 24 HR Interval Summary Free Text/Dictation Denies chest pain, shortness of breath Exam/Review of Systems Vital Signs Vitals Vital Signs Date Time Temp Pulse Resp B/P Pulse Ox O2 Delivery O2 Flow Rate FiO2 01/28/17 07:30 98.8 100 16 102/70 92 01/27/17 20:00 Nasal Cannula 4.0 Intake and Output 01/27/17 01/27/17 01/28/17 15:00 23:00 07:00 Intake Total 360 ml 960 ml 840 ml Output Total 450 ml 500 ml 400 ml Balance -90 ml 460 ml 440 ml Exam No apparent distress Constitutional: alert, oriented Head: normocephalic Respiratory: other (Coarse breath sounds bilaterally, no wheezing) Cardiovascular: irregular rhythm, other (S1-S2 heard) Gastrointestinal: bowel sounds, non-tender, soft Extremities: edema Results Result Diagram: 01/28/17 0425 01/28/17 0425 Results 24 hrs Laboratory Tests Test 01/28/17 04:25 White Blood Count 6.2 Red Blood Count 4.36 L Hemoglobin 10.1 L Hematocrit 33.0 L Mean Corpuscular Volume 75.7 L Mean Corpuscular Hemoglobin 23.2 L Mean Corpuscular Hemoglobin Concent 30.6 L Red Cell Distribution Width 20.3 H Platelet Count 222 Mean Platelet Volume 11.9 H Neutrophils % 67.5 Lymphocytes % 17.8 Monocytes % 13.5 H Eosinophils % 0.8 Basophils % 0.2 Nucleated Red Blood Cells % 1.3 H Neutrophils # 4.2 Lymphocytes # 1.1 Monocytes # 0.8 Eosinophils # 0.1 Basophils # 0.0 Nucleated Red Blood Cells # 0.1 H Sodium Level 135 Potassium Level 3.4 L Chloride Level 99 Carbon Dioxide Level 29 Anion Gap 10 Blood Urea Nitrogen 25 H Creatinine 0.82 Glucose Level 87 # Calcium Level 8.0 L Medications Medications Current Medications Atorvastatin Calcium (Lipitor) 40 mg HS PO Last administered on 01/27/17 20:49 ; Admin Dose 40 MG; Start 01/19/17 at 21:00 Escitalopram Oxalate (Lexapro) 10 mg DAILY PO Last administered on 01/28/17 08 :54; Admin Dose 10 MG; Start 01/19/17 at 09:00 Levetiracetam (Keppra) 500 mg BID PO Last administered on 01/28/17 08:53; Admin Dose 500 MG; Start 01/19/17 at 02:00 Ondansetron HCl (Zofran Inj) 4 mg Q6H PRN IV NAUSEA AND/OR VOMITING Last administered on 01/28/17 12:40; Admin Dose 4 MG; Start 01/19/17 at 02:30 Acetaminophen (Tylenol Tab) 650 mg Q6H PRN PO PAIN LEVEL 1-3 OR FEVER Last administered on 01/27/17 03:40; Admin Dose 650 MG; Start 01/19/17 at 02:30 Morphine Sulfate (morphine) 2 mg Q4H PRN IV PAIN LEVEL 7-10 Last administered on 01/28/17 09:01; Admin Dose 2 MG; Start 01/19/17 at 02:30 Zolpidem Tartrate (Ambien) 5 mg QHS PRN PO INSOMNIA Last administered on 23:37; Admin Dose 5 MG; Start 01/19/17 at 02:30 Bisacodyl (Dulcolax) 5 mg DAILY PRN PO CONSTIPATION Last administered on 05:25; Admin Dose 5 MG; Start 01/19/17 at 02:30 Famotidine (Pepcid) 20 mg Q12 PO Last administered on 01/28/17 08:53; Admin Dose 20 MG; Start 01/19/17 at 02:30 Mupirocin (Bactroban) 1 applic BID TOP Last administered on 01/28/17 08:55; Admin Dose 1 APPLIC; Start 01/20/17 at 11:00 Tramadol HCl (Ultram) 50 mg Q6H PRN PO PAIN Last administered on 01/28/17 01: 31; Admin Dose 50 MG; Start 01/20/17 at 16:00 Metoprolol Tartrate (Lopressor) 12.5 mg BID PO Last administered on 01/25/17 21 :51; Admin Dose 12.5 MG; Start 01/21/17 at 13:00 Diphenhydramine HCl (Benadryl) 25 mg Q12H PRN PO ITCHING Last administered on 22:26; Admin Dose 25 MG; Start 01/22/17 at 03:30 Venlafaxine HCl (Effexor) 75 mg BID PO Last administered on 01/28/17 08:53; Admin Dose 75 MG; Start 01/23/17 at 21:00 Docusate Sodium (Colace) 100 mg Q12 PO Last administered on 01/28/17 08:53; Admin Dose 100 MG; Start 01/23/17 at 21:00 IV Flush (NS 10 ml) 10 ml PRN PRN IV IV PROTOCOL Last administered on 09:05; Admin Dose 10 ML; Start 01/24/17 at 12:30 Levofloxacin (Levaquin) 500 mg DAILY@06 PO Last administered on 01/28/17 05:25 ; Admin Dose 500 MG; Start 01/27/17 at 15:00 Louis Montalvo DO January 28, 2017 12:47
[2017-01-28] MEDS ORDERED: POTASSIUM CHLORIDE (SR) 20 MEQ TAB PO STA (15:08)
--- NOTE | 2017-01-28 15:15 | DS ---
Date/Time of Note Date/Time of Note DATE: 01/28/17 TIME: 15:14 Discharge Summary Admission/Discharge Info Admit Date/Time January 18, 2017 at 21:52 Discharge Date/Time Final Diagnosis FINAL DIAGNOSES: 1. Lactic acidosis secondary to obstructing calculus in the right renal pelvis , resulting in mild to moderate right hydronephrosis with probable infection status post cystoscopy and lithotripsy performed. 2. Shortness of breath. Improved. 3. History of suicide ideation and depression. Now improved on antidepressant medications. 4. Chronic liver disease with mild hyperbilirubinemia. 5. Previous cerebrovascular accident, with residual left-sided hemiparesis. 6. Chronic atrial fibrillation, rate controlled. 7. Chronic seizure disorder. 8. Congestive heart failure. 9. History of tobacco and illicit drug use in the past. 10. History of sick sinus syndrome in the past, status post pacemaker. 11. Methicillin-resistant Staphylococcus aureus positive infection of the nares. On Bactroban. 12. Chronic depression and suicide behavior in the past. 13. Iron deficiency anemia. Time spent discharging the patient was 45 minutes. Hx of Present Illness This is a 56-year-old male with left-sided hemiparesis secondary to his CVA 10 years prior to arrival who presents to the emergency department brought in by EMS from his sniff facility, [facility], with difficulty breathing that has progressively worsened over the past week. The patient indicates he was discharged from [facility] 1 week ago where he had been treated for pneumonia he is not currently on antibiotics. He indicates that he still has had a productive cough since discharge with whitish sputum. Indicates that prior to arrival he indicated he was feeling short of breath. He stated he has had multiple similar episodes over the past several weeks of shortness of breath which improved when he is placed on oxygen. Indicated there was no oxygen available at [facility] and therefore 911 was called for further evaluation. The patient states he has had no fevers no shaking or chills. He also indicated that at the onset of the shortness of breath he developed right-sided chest pain which radiated to the right flank region. Indicates the pain is a sharp shooting pain. He states he has never had any similar episodes in the past and denies any recent trauma. He denies any frequency urgency or dysuria. The patient has a pacemaker and currently is on Eliquis and Plavix for chronic atrial fibrillation however patient has not taken it for the past 3 days as apparently he was not getting them at the facility he is staying at .He denies any abdominal pain. He denies any hemoptysis hematemesis or melanotic stools. The patient states he is a DO NOT RESUSCITATE with comfort measures only. However patient is okay with possibly getting ureteral stent if necessary. Hospital Course DATE OF ADMISSION: 01/18/2017 DATE OF DISCHARGE: 01/28/2017 This is a 56-year-old male originally admitted on 01/19/2017, [facility] 01[facility]28/2017. HOSPITAL COURSE: The patient initially came in with weakness. He was found with some lactic acidosis. He was admitted and seen by the psychiatry team, cardiology team and urology team during this hospital stay. He was found with an obstructing calculus in the right renal pelvis, resulting in a mild to moderate right hydronephrosis with probable infection, possibly the source of the patient's lactic acidosis. He had a cystoscopy and lithotripsy performed by the urology team. He was also seen by a telepsychiatrist because of concerns of major depression. He was suggested to be started on Effexor medication as well. There was a 1:1 sitter placed for possible suicide ideation , although he was reassessed a few days later by the psychiatry team and was determined not to be in any kind of suicidal ideation state of mind and the 1:1 sitter was stopped and he was continued on the Effexor medicine. Over the course of his hospital stay, again, his sepsis and lactic acidosis improved. He was back at his baseline status. He had a JJ stent apparently placed after the cystoscopy was performed. He had no signs of any hematuria, his vital signs are stable on day of discharge, and he will be discharged back to the [facility] facility today in improved condition. DISCHARGE MEDICATIONS: He will be sent with: 1. Tylenol 650 q.6 p.r.n. 2. Lipitor 40 mg at bedtime. 3. Dulcolax 5 mg daily p.r.n. 4. Benadryl 25 mg q.2h. p.r.n. 5. Colace 100 mg q.12h. 6. Lexapro 10 mg daily. 7. Pepcid 20 mg q.12h. 8. Keppra 500 mg b.i.d. 9. Levaquin 500 mg daily for 5 days. 10. Metoprolol 12.5 mg b.i.d. 11. Morphine 2 mg IV q.4 p.r.n. 12. Bactroban, apply topically b.i.d. 13. Zofran 4 mg IV q.6 p.r.n. 14. Ultram 50 mg q.6 p.r.n. 15. Effexor 75 mg b.i.d. 16. Ambien 5 mg daily at bedtime p.r.n. 17. Plavix 75 mg PO Qday starting 01/29/17 Follow up with primary care doctor in the clinic in the next 1 to 2 weeks. Home Meds Active Scripts Clopidogrel Bisulfate (Clopidogrel) 75 Mg Tablet, 75 MG PO DAILY, #30 TAB Prov:AVERY CAMPO MD 09/17/16 Atorvastatin* (Atorvastatin*) 40 Mg Tablet, 40 MG PO HS, #30 TAB Prov:AVERY CAMPO MD 09/17/16 Reported Medications Tramadol Hcl* (Ultram*) 50 Mg Tablet, 50 MG PO Q6H Y for PAIN, TAB 01/18/17 Metolazone* (Metolazone*) 2.5 Mg Tablet, 2.5 MG PO DAILY, TAB TAKE M.,W.,F. 01/18/17 Escitalopram Oxalate* (Escitalopram Oxalate*) 10 Mg Tablet, 10 MG PO DAILY, #30 TAB 01/18/17 Levetiracetam* (Levetiracetam*) 500 Mg Tablet, 500 MG PO BID, TAB 07/15/15 Pending Labs Laboratory Tests Test 01/28/17 04:25 White Blood Count 6.210^3/ul (4.8-10.8) Red Blood Count 4.3610^6/ul (4.70-6.10) Hemoglobin 10.1g/dl (14.0-18.0) Hematocrit 33.0% (42.0-52.0) Mean Corpuscular Volume 75.7fl (82.0-101.0) Mean Corpuscular Hemoglobin 23.2pg (29.0-33.0) Mean Corpuscular Hemoglobin Concent 30.6g/dl (32.0-37.0) Red Cell Distribution Width 20.3% (11.5-14.5) Platelet Count 34220^3/UL (140-415) Mean Platelet Volume 11.9fl (7.4-10.4) Neutrophils % 67.5% (39.0-77.0) Lymphocytes % 17.8% (15.0-51.0) Monocytes % 13.5% (0.0-11.0) Eosinophils % 0.8% (0.0-7.0) Basophils % 0.2% (0.0-2.0) Nucleated Red Blood Cells % 1.3/100WBC (0.0-0.0) Neutrophils # 4.210^3/ul (1.6-7.5) Lymphocytes # 1.110^3/ul (0.8-2.9) Monocytes # 0.810^3/ul (0.3-0.9) Eosinophils # 0.110^3/ul (0.0-0.5) Basophils # 0.010^3/ul (0.0-0.1) Nucleated Red Blood Cells # 0.110^3/ul (0.0-0.0) Sodium Level 135mmol/L (135-144) Potassium Level 3.4mmol/L (3.5-5.1) Chloride Level 99mmol/L (97-110) Carbon Dioxide Level 29mmol/L (21-31) Anion Gap 10 (8-16) Blood Urea Nitrogen 25mg/dl (7-20) Creatinine 0.82mg/dl (0.61-1.24) Glucose Level 87mg/dl (70-220) Calcium Level 8.0mg/dl (8.4-10.2) [place] January 28, 2017 15:15
--- NOTE | 2017-01-28 16:05 | PN ---
DATE: 01/28/2017 SUBJECTIVE: The patient complains of pain in his back. He is tired and sleepy at times. The patie nt does have a right ureteropelvic junction stone that we tried to break with the lithotripsy karen e, but he was having many PVCs and even when the ESWL machine was gated to the heart beat, his heart went into many PVCs and then the pacemaker took over. So, we had to stop the procedure after givin g him short amount of shock waves. OBJECTIVE VITAL SIGNS: His temperature is 98.8, blood pressure 102/70, pulse is 100, respirations 16. ABDOMEN: Soft and the Price catheter is draining clear urine. EXTREMITIES: The string of the JJ stent is still attached to it. LABORATORY DATA: CBC shows a white count of 6.2, hemoglobin 10.1, hematocrit 33.0, platelet count 2 22,000. The BUN is 25, creatinine 0.82, sodium 135, potassium 3.4, chloride 99, CO2 of 29. The uri ne culture from 01/25/2017 showed no growth after 48 hours. IMPRESSION: Right ureteropelvic junction stone that needs to be taken out and patient's treatment w as ESWL and had to be stopped because of her cardiac arrhythmias. Therefore, the patient is to do a cystoscopy and right ureteroscopy and laser lithotripsy to the stone with the hope that you could b reak it with the laser and that would not have any effect on his heart arrhythmias. Dictated By: JOSE A NEWTON/FELIX Conf#: [id number] DID#: [id number]
--- NOTE | 2017-01-28 17:31 | RADRPT ---
PROCEDURE: US upper extremity Venous. CLINICAL INDICATION: Left arm edema TECHNIQUE: Multiple sonographic images of the left upper extremity venous system was obtained util izing grayscale, color-flow, compressive sonography and doppler imaging with augmentation. The imag es were reviewed on a PACS workstation. COMPARISON: None. FINDINGS: There is normal compressibility and flow within the left internal jugular vein, subclavian vein, axi llary vein, brachial, basilic, cephalic, radial and ulnar veins. RPTAT: AA IMPRESSION: No sonographic evidence for venous thrombosis. .Jagjit Brown MD, MD Date Time Electronically viewed and signed by .Jagjit Brown MD, MD on 01/28/2017 17:30 .S/
[2017-01-28 20:39] VITALS: BP 103/79; RESP 19
[2017-01-28] MEDS: ATORVASTATIN 40 MG TAB PO SCH ×3 (20:54→23:52)
[2017-01-29] MEDS: LEVOFLOXACIN 500 MG TAB PO SCH (05:12)
[2017-01-29] MEDS: BISACODYL (EC) 5 MG TAB PO PRN (05:12)
[2017-01-29 05:31] LABS: ADD SCAN DIFF NO
[2017-01-29 06:04] LABS: BASOPHILS % 0.4 % (0.0-2.0); EOSINOPHILS # 0.1 10^3/ul (0.0-0.5); EOSINOPHILS % 1.3 % (0.0-7.0); HEMATOCRIT 33.9 % (42.0-52.0); HEMOGLOBIN 10.5 g/dl (14.0-18.0); LYMPHOCYTES % 18.3 % (15.0-51.0); MEAN CORPUSCULAR VOLUME 74.2 fl (82.0-101.0); MEAN PLATELET VOLUME 11.3 fl (7.4-10.4); MONOCYTE # 0.9 10^3/ul (0.3-0.9); MONOCYTES % 15.5 % (0.0-11.0); NEUTROPHIL # 3.5 10^3/ul (1.6-7.5); NEUTROPHILS % 64.1 % (39.0-77.0); NUCLEATED RED BLOOD CELLS # 0.1 10^3/ul (0.0-0.0); NUCLEATED RED BLOOD CELLS% 1.1 /100WBC (0.0-0.0); PLATELET COUNT 194 10^3/UL (140-415); RED BLOOD COUNT 4.57 10^6/ul (4.70-6.10); RED CELL DISTRIBUTION WIDTH 20.3 % (11.5-14.5); WHITE BLOOD COUNT 5.5 10^3/ul (4.8-10.8)
[2017-01-29 06:12] LABS: CALCIUM 8.2 mg/dl (8.4-10.2); CREATININE 0.85 mg/dl (0.61-1.24)
[2017-01-29 08:12] VITALS: BP 119/90; RESP 16
[2017-01-29] MEDS: ESCITALOPRAM 10 MG TAB PO SCH (08:45)
[2017-01-29] MEDS: CLOPIDOGREL 75 MG TAB PO SCH (08:45)
[2017-01-29] MEDS: FAMOTIDINE 20 MG TAB PO SCH ×2 (08:45→23:32)
[2017-01-29] MEDS: METOPROLOL 25 MG TAB PO SCH ×2 (08:46→21:00)
[2017-01-29] MEDS: DOCUSATE SODIUM 100 MG CAP PO SCH ×2 (09:09→23:32)
[2017-01-29] MEDS: VENLAFAXINE 75 MG TABLET PO SCH ×2 (09:09→23:32)
[2017-01-29] MEDS: MUPIROCIN 2% 22 GM OINT TOP SCH ×2 (09:09→23:32)
[2017-01-29] MEDS: LEVETIRACETAM 500 MG TAB PO SCH ×2 (09:09→23:32)
--- NOTE | 2017-01-29 11:04 | PN ---
Date/Time of Note Date/Time of Note DATE: 01/29/17 TIME: 11:04 Assessment/Plan VTE Prophylaxis VTE Prophylaxis Intervention: SCD's Lines/Catheters IV Catheter Type (from Nrs): PICC Line Central line still needed: No Urinary Cath still in place: Yes Reason Cath still needed: urinary retention Assessment/Plan Assessment/Plan Hydronephrosis with obstructive right renal calculi Compensated systolic congestive heart failure Cardiomyopathy with ejection fraction 25% Atrial fibrillation, not on anticoagulation History of CVA DNR Medication noncompliance - Patient with history of atrial fibrillation with recent IN with emboli likely secondary to noncompliance with anticoagulation. Would restart anticoagulation when okay by primary and surgery team if no contraindication. Blood pressure on the lower end, would hold off on restarting LUZMA inhibitor at the current time. Continue beta-iraida as blood pressure and renal function permits. Restart Plavix if no contraindication. Subjective 24 Hr Interval Summary Free Text/Dictation The aptinet with no cahnge Exam/Review of Systems Vital Signs Vitals Vital Signs Date Time Temp Pulse Resp B/P Pulse Ox O2 Delivery O2 Flow Rate FiO2 01/29/17 08:12 98.6 68 16 119/90 89 01/29/17 05:47 5.0 01/27/17 20:00 Nasal Cannula Intake and Output 01/28/17 01/28/17 01/29/17 15:00 23:00 07:00 Intake Total 660 ml 420 ml Output Total 500 ml 1000 ml Balance 160 ml -580 ml Results Result Diagram: 01/29/17 0510 01/29/17 0510 Results 24 hrs Laboratory Tests Test 01/29/17 05:10 White Blood Count 5.5 Red Blood Count 4.57 L Hemoglobin 10.5 L Hematocrit 33.9 L Mean Corpuscular Volume 74.2 L Mean Corpuscular Hemoglobin 23.0 L Mean Corpuscular Hemoglobin Concent 31.0 L Red Cell Distribution Width 20.3 H Platelet Count 194 Mean Platelet Volume 11.3 H Neutrophils % 64.1 Lymphocytes % 18.3 Monocytes % 15.5 H Eosinophils % 1.3 Basophils % 0.4 Nucleated Red Blood Cells % 1.1 H Neutrophils # 3.5 Lymphocytes # 1.0 Monocytes # 0.9 Eosinophils # 0.1 Basophils # 0.0 Nucleated Red Blood Cells # 0.1 H Sodium Level 133 L Potassium Level 4.0 Chloride Level 102 Carbon Dioxide Level 28 Anion Gap 7 L Blood Urea Nitrogen 21 H Creatinine 0.85 Glucose Level 80 Calcium Level 8.2 L Medications Medications Current Medications Atorvastatin Calcium (Lipitor) 40 mg HS PO Last administered on 01/28/17 23:52 ; Admin Dose 40 MG; Start 01/19/17 at 21:00 Escitalopram Oxalate (Lexapro) 10 mg DAILY PO Last administered on 01/29/17 08 :45; Admin Dose 10 MG; Start 01/19/17 at 09:00 Levetiracetam (Keppra) 500 mg BID PO Last administered on 01/29/17 09:09; Admin Dose 500 MG; Start 01/19/17 at 02:00 Ondansetron HCl (Zofran Inj) 4 mg Q6H PRN IV NAUSEA AND/OR VOMITING Last administered on 01/28/17 12:40; Admin Dose 4 MG; Start 01/19/17 at 02:30 Acetaminophen (Tylenol Tab) 650 mg Q6H PRN PO PAIN LEVEL 1-3 OR FEVER Last administered on 01/27/17 03:40; Admin Dose 650 MG; Start 01/19/17 at 02:30 Morphine Sulfate (morphine) 2 mg Q4H PRN IV PAIN LEVEL 7-10 Last administered on 01/28/17 09:01; Admin Dose 2 MG; Start 01/19/17 at 02:30 Zolpidem Tartrate (Ambien) 5 mg QHS PRN PO INSOMNIA Last administered on 23:37; Admin Dose 5 MG; Start 01/19/17 at 02:30 Bisacodyl (Dulcolax) 5 mg DAILY PRN PO CONSTIPATION Last administered on 05:12; Admin Dose 5 MG; Start 01/19/17 at 02:30 Famotidine (Pepcid) 20 mg Q12 PO Last administered on 01/29/17 08:45; Admin Dose 20 MG; Start 01/19/17 at 02:30 Mupirocin (Bactroban) 1 applic BID TOP Last administered on 01/29/17 09:09; Admin Dose 1 APPLIC; Start 01/20/17 at 11:00 Tramadol HCl (Ultram) 50 mg Q6H PRN PO PAIN Last administered on 01/28/17 01: 31; Admin Dose 50 MG; Start 01/20/17 at 16:00 Metoprolol Tartrate (Lopressor) 12.5 mg BID PO Last administered on 01/29/17 08:46; Admin Dose 12.5 MG; Start 01/21/17 at 13:00 Diphenhydramine HCl (Benadryl) 25 mg Q12H PRN PO ITCHING Last administered on 22:26; Admin Dose 25 MG; Start 01/22/17 at 03:30 Venlafaxine HCl (Effexor) 75 mg BID PO Last administered on 01/29/17 09:09; Admin Dose 75 MG; Start 01/23/17 at 21:00 Docusate Sodium (Colace) 100 mg Q12 PO Last administered on 01/29/17 09:09; Admin Dose 100 MG; Start 01/23/17 at 21:00 IV Flush (NS 10 ml) 10 ml PRN PRN IV IV PROTOCOL Last administered on 09:05; Admin Dose 10 ML; Start 01/24/17 at 12:30 Levofloxacin (Levaquin) 500 mg DAILY@06 PO Last administered on 01/29/17 05:12 ; Admin Dose 500 MG; Start 01/27/17 at 15:00 Clopidogrel Bisulfate (plaVIX) 75 mg DAILY PO Last administered on 01/29/17 08 :45; Admin Dose 75 MG; Start 01/29/17 at 09:00 LEONIDAS CARDONA MD January 29, 2017 11:04
--- NOTE | 2017-01-29 11:08 | RADRPT ---
PROCEDURE: XR Abdomen. CLINICAL INDICATION: Right UPJ stone TECHNIQUE: 3 views of the abdomen are available for review. COMPARISON: None. FINDINGS: Right ureteral stent is identified. 1.4 cm calcific density is seen adjacent to the stent proximall y, likely representing the right UPJ calculus as in the clinical history. Right upper quadrant surg ical clips are suggestive of prior cholecystectomy. IVC filter is in place. The bowel gas pattern is unremarkable. There is no evidence of obstruction. There is degenerative spondylosis of the spin e. The patient is status post left femoral ORIF. IMPRESSION: 1. Right ureteral stent is in place. 1.4 cm calcific density seen adjacent to the proximal aspect of the stent, likely UPJ calculus. RPTAT: QQ .Diogenes Farias MD, Date Time Electronically viewed and signed by .Diogenes Farias MD, on 01/29/2017 11:08 .R/
--- NOTE | 2017-01-29 12:53 | PN ---
Date/Time of Note Date/Time of Note DATE: 01/29/17 TIME: 12:49 Assessment/Plan VTE Prophylaxis VTE Prophylaxis Intervention: SCD's Lines/Catheters IV Catheter Type (from Nrs): PICC Line Central line still needed: Yes Urinary Cath still in place: Yes Reason Cath still needed: urinary retention Assessment/Plan Chief Complaint/Hosp Course A/P: 56 M with: 1. Shortness of breath. The patient seems to be doing well on pacemaker, overall improved. -monitor for now. 2. Obstructive calculus in right renal pelvis resulting in mild to moderate right hydronephrosis with probable infection. Again, s/p lithrotrispy and cystoscopy performed, JJ stent in place - monitor 3. Multiple renal cysts without masses on ultrasound. 5. 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 Chronic liver disease with mild hyperbilirubinemia. 7. Coronary artery disease, status post recent non-ST elevation myocardial infarction and percutaneous coronary intervention in 08/2016. 8. Chronic atrial fibrillation, rate controlled - plavix 9. Chronic seizure disorder, controlled. 10. Congestive heart failure. 11. History of tobacco and illicit drug use. 12. History of sick sinus syndrome, status post pacemaker. 13. Methicillin-resistant Staphylococcus aureus nares on Bactroban. 14. Chronic depression and suicidal behavior - effexor 15. Iron deficiency anemia. Problems: Subjective 24 Hr Interval Summary Free Text/Dictation Pt not discharged b/c pt and family filed appeal to stay in hospital. No acute events overnight. Exam/Review of Systems Vital Signs Vitals Vital Signs Date Time Temp Pulse Resp B/P Pulse Ox O2 Delivery O2 Flow Rate FiO2 01/29/17 08:12 98.6 68 16 119/90 89 01/29/17 05:47 5.0 01/27/17 20:00 Nasal Cannula Intake and Output 01/28/17 01/28/17 01/29/17 15:00 23:00 07:00 Intake Total 660 ml 420 ml Output Total 500 ml 1000 ml Balance 160 ml -580 ml Exam GENERAL: The patient lying in bed, on the phone HEENT: Head is normocephalic. Pupils are equal and reactive. CHEST: some reduced air entry bilaterally. No crackles or wheezes, however. CARDIOVASCULAR: Irregularly irregular heart sounds. No murmurs. ABDOMEN: Obese, soft, nontender with normoactive bowel sounds. EXTREMITIES: Bilateral leg edema, trace. Results Result Diagram: 01/29/17 0510 01/29/17 0510 Results 24 hrs Laboratory Tests Test 01/29/17 05:10 White Blood Count 5.5 Red Blood Count 4.57 L Hemoglobin 10.5 L Hematocrit 33.9 L Mean Corpuscular Volume 74.2 L Mean Corpuscular Hemoglobin 23.0 L Mean Corpuscular Hemoglobin Concent 31.0 L Red Cell Distribution Width 20.3 H Platelet Count 194 Mean Platelet Volume 11.3 H Neutrophils % 64.1 Lymphocytes % 18.3 Monocytes % 15.5 H Eosinophils % 1.3 Basophils % 0.4 Nucleated Red Blood Cells % 1.1 H Neutrophils # 3.5 Lymphocytes # 1.0 Monocytes # 0.9 Eosinophils # 0.1 Basophils # 0.0 Nucleated Red Blood Cells # 0.1 H Sodium Level 133 L Potassium Level 4.0 Chloride Level 102 Carbon Dioxide Level 28 Anion Gap 7 L Blood Urea Nitrogen 21 H Creatinine 0.85 Glucose Level 80 Calcium Level 8.2 L Medications Medications Current Medications Atorvastatin Calcium (Lipitor) 40 mg HS PO Last administered on 01/28/17 23:52 ; Admin Dose 40 MG; Start 01/19/17 at 21:00 Escitalopram Oxalate (Lexapro) 10 mg DAILY PO Last administered on 01/29/17 08 :45; Admin Dose 10 MG; Start 01/19/17 at 09:00 Levetiracetam (Keppra) 500 mg BID PO Last administered on 01/29/17 09:09; Admin Dose 500 MG; Start 01/19/17 at 02:00 Ondansetron HCl (Zofran Inj) 4 mg Q6H PRN IV NAUSEA AND/OR VOMITING Last administered on 01/28/17 12:40; Admin Dose 4 MG; Start 01/19/17 at 02:30 Acetaminophen (Tylenol Tab) 650 mg Q6H PRN PO PAIN LEVEL 1-3 OR FEVER Last administered on 01/27/17 03:40; Admin Dose 650 MG; Start 01/19/17 at 02:30 Morphine Sulfate (morphine) 2 mg Q4H PRN IV PAIN LEVEL 7-10 Last administered on 01/28/17 09:01; Admin Dose 2 MG; Start 01/19/17 at 02:30 Zolpidem Tartrate (Ambien) 5 mg QHS PRN PO INSOMNIA Last administered on 23:37; Admin Dose 5 MG; Start 01/19/17 at 02:30 Bisacodyl (Dulcolax) 5 mg DAILY PRN PO CONSTIPATION Last administered on 05:12; Admin Dose 5 MG; Start 01/19/17 at 02:30 Famotidine (Pepcid) 20 mg Q12 PO Last administered on 01/29/17 08:45; Admin Dose 20 MG; Start 01/19/17 at 02:30 Mupirocin (Bactroban) 1 applic BID TOP Last administered on 01/29/17 09:09; Admin Dose 1 APPLIC; Start 01/20/17 at 11:00 Tramadol HCl (Ultram) 50 mg Q6H PRN PO PAIN Last administered on 01/28/17 01: 31; Admin Dose 50 MG; Start 01/20/17 at 16:00 Metoprolol Tartrate (Lopressor) 12.5 mg BID PO Last administered on 01/29/17 08:46; Admin Dose 12.5 MG; Start 01/21/17 at 13:00 Diphenhydramine HCl (Benadryl) 25 mg Q12H PRN PO ITCHING Last administered on 22:26; Admin Dose 25 MG; Start 01/22/17 at 03:30 Venlafaxine HCl (Effexor) 75 mg BID PO Last administered on 01/29/17 09:09; Admin Dose 75 MG; Start 01/23/17 at 21:00 Docusate Sodium (Colace) 100 mg Q12 PO Last administered on 01/29/17 09:09; Admin Dose 100 MG; Start 01/23/17 at 21:00 IV Flush (NS 10 ml) 10 ml PRN PRN IV IV PROTOCOL Last administered on 09:05; Admin Dose 10 ML; Start 01/24/17 at 12:30 Levofloxacin (Levaquin) 500 mg DAILY@06 PO Last administered on 01/29/17 05:12 ; Admin Dose 500 MG; Start 01/27/17 at 15:00 Clopidogrel Bisulfate (plaVIX) 75 mg DAILY PO Last administered on 5/13/17at 08 :45; Admin Dose 75 MG; Start 01/29/17 at 09:00 TRINY NATION January 29, 2017 12:53
[2017-01-29] MEDS ORDERED: NA PHOSPHATE/BIPHOS 133 ML ENEMA PR ONE (15:00)
--- NOTE | 2017-01-29 16:32 | PN ---
DATE: 01/29/2017 SUBJECTIVE: Right renal stone and the patient underwent right extracorporeal shock wave lithotripsy, but that was not completed because of cardiac arrhythmias that did not allow the treatment to be co mpleted. The patient at the present is feeling comfortable. He is complaining of a little discomfo rt at the tip of the penis because he has an indwelling Price catheter. The patient as a matter of fact, today is awake, alert and very clear. I told him that we have to still treat the stone with t he laser, and he said that is fine and that he may have to go to a skilled nursing for a while. Then andreina mamhood said that is fine. I would like, however, to go to my home and he seems to be very well aware of w hat's going on. There were times before that he was completely confused and not as alert as he is n ow. OBJECTIVE FINDINGS: VITAL SIGNS: Temperature is 98.6, pulse is 68, respirations 16, blood pressure 119/90. ABDOMEN: Soft. The Price catheter is in place, draining clear urine. The string of the JJ stent i s still taped up to it. LABORATORY DATA: His CBC shows a white count of 5.5, hemoglobin 10.5, hematocrit 33.9, platelet cou nt 194,000. BUN is 21, creatinine 0.85. The urine culture has been negative. KUB shows that the s tone is still next to the stent at the [facility], and it looks to me this stone may have broken into small er pieces as well, but still significant size pieces that he will need further care to take care of it. At the present we shall keep the Price catheter with the JJ stent in place and if he is dischar ge, we will have to bring him back to do a ureteroscopy and laser lithotripsy to the stone in the ri ght kidney, as the laser lithotripsy would not interfere with his heart rhythm and would not cause a ny arrhythmias. Dictated By: JOSE A NEWTON/FELIX Conf#: [id number] DID#: [id number]
[2017-01-29 21:23] VITALS: BP 101/76; RESP 19
[2017-01-29] MEDS: ATORVASTATIN 40 MG TAB PO SCH (23:32)
[2017-01-30] MEDS: morphine 2 MG INJ IV PRN (00:30)
[2017-01-30] MEDS: ONDANSETRON 4 MG INJ IV PRN ×2 (00:37→22:05)
[2017-01-30] MEDS: ACETAMINOPHEN 325 MG TAB PO PRN (03:21)
[2017-01-30] MEDS: LEVOFLOXACIN 500 MG TAB PO SCH (05:50)
[2017-01-30 07:50] VITALS: BP 101/74; RESP 16
[2017-01-30] MEDS: DOCUSATE SODIUM 100 MG CAP PO SCH ×2 (08:55→21:53)
[2017-01-30] MEDS: ESCITALOPRAM 10 MG TAB PO SCH (08:55)
[2017-01-30] MEDS: traMADol 50 MG TAB PO PRN ×3 (08:55→21:57)
[2017-01-30] MEDS: VENLAFAXINE 75 MG TABLET PO SCH ×2 (08:55→21:54)
[2017-01-30] MEDS: CLOPIDOGREL 75 MG TAB PO SCH (08:55)
[2017-01-30] MEDS: LEVETIRACETAM 500 MG TAB PO SCH ×2 (08:55→21:53)
[2017-01-30] MEDS: FAMOTIDINE 20 MG TAB PO SCH ×2 (08:55→21:53)
[2017-01-30] MEDS: METOPROLOL 25 MG TAB PO SCH ×2 (09:00→21:54)
[2017-01-30] MEDS: MUPIROCIN 2% 22 GM OINT TOP SCH ×2 (09:00→22:00)
[2017-01-30] MEDS: DIPHENHYDRAMINE 25 MG CAP PO PRN ×2 (11:48→21:57)
[2017-01-30] MEDS: BISACODYL (EC) 5 MG TAB PO PRN (11:48)
--- NOTE | 2017-01-30 14:56 | PN ---
Date/Time of Note Date/Time of Note DATE: 01/30/17 TIME: 14:54 Assessment/Plan VTE Prophylaxis VTE Prophylaxis Intervention: SCD's Lines/Catheters IV Catheter Type (from Nrs): PICC Line Central line still needed: Yes Urinary Cath still in place: Yes Reason Cath still needed: urinary retention Assessment/Plan Chief Complaint/Hosp Course A/P: 56 M with: 1. Shortness of breath. The patient seems to be doing well on pacemaker, overall improved. -monitor for now. 2. Obstructive calculus in right renal pelvis resulting in mild to moderate right hydronephrosis with probable infection. Again, s/p lithrotrispy and cystoscopy performed, JJ stent in place - monitor 3. Multiple renal cysts without masses on ultrasound. 5. 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 Chronic liver disease with mild hyperbilirubinemia. 7. Coronary artery disease, status post recent non-ST elevation myocardial infarction and percutaneous coronary intervention in 08/2016. 8. Chronic atrial fibrillation, rate controlled - plavix 9. Chronic seizure disorder, controlled. 10. Congestive heart failure. 11. History of tobacco and illicit drug use. 12. History of sick sinus syndrome, status post pacemaker. 13. Methicillin-resistant Staphylococcus aureus nares on Bactroban. 14. Chronic depression and suicidal behavior - effexor 15. Iron deficiency anemia. 16. Dispo: to SNF when bed available - f/u with CM. Daughter had filed appeal on Tuesday as well of the discharge, f/u with CM on this. Problems: Subjective 24 Hr Interval Summary Free Text/Dictation No acute events overnight, seen by team yesterday. Exam/Review of Systems Vital Signs Vitals Vital Signs Date Time Temp Pulse Resp B/P Pulse Ox O2 Delivery O2 Flow Rate FiO2 01/30/17 07:50 97.6 62 16 101/74 97 01/30/17 01:06 5.0 01/27/17 20:00 Nasal Cannula Intake and Output 01/29/17 01/29/17 01/30/17 15:00 23:00 07:00 Intake Total 600 ml 480 ml Output Total 1200 ml 800 ml Balance -600 ml -320 ml Exam GENERAL: The patient lying in bed, NAD HEENT: Head is normocephalic. Pupils are equal and reactive. CHEST: some reduced air entry bilaterally. No crackles or wheezes, however. CARDIOVASCULAR: Irregularly irregular heart sounds. No murmurs. ABDOMEN: Obese, soft, nontender with normoactive bowel sounds. EXTREMITIES: Bilateral leg edema, trace. Results Result Diagram: 01/29/1710 01/29/17 0510 Medications Medications Current Medications Atorvastatin Calcium (Lipitor) 40 mg HS PO Last administered on 01/28/17 23:52 ; Admin Dose 40 MG; Start 01/19/17 at 21:00 Levetiracetam (Keppra) 500 mg BID PO Last administered on 01/30/17 08:55; Admin Dose 500 MG; Start 01/19/17 at 02:00 Ondansetron HCl (Zofran Inj) 4 mg Q6H PRN IV NAUSEA AND/OR VOMITING Last administered on 01/30/17 00:37; Admin Dose 4 MG; Start 01/19/17 at 02:30 Acetaminophen (Tylenol Tab) 650 mg Q6H PRN PO PAIN LEVEL 1-3 OR FEVER Last administered on 01/30/17 03:21; Admin Dose 650 MG; Start 01/19/17 at 02:30 Morphine Sulfate (morphine) 2 mg Q4H PRN IV PAIN LEVEL 7-10 Last administered on 01/30/17 00:30; Admin Dose 2 MG; Start 01/19/17 at 02:30 Zolpidem Tartrate (Ambien) 5 mg QHS PRN PO INSOMNIA Last administered on 23:37; Admin Dose 5 MG; Start 01/19/17 at 02:30 Bisacodyl (Dulcolax) 5 mg DAILY PRN PO CONSTIPATION Last administered on 11:48; Admin Dose 5 MG; Start 01/19/17 at 02:30 Famotidine (Pepcid) 20 mg Q12 PO Last administered on 01/30/17 08:55; Admin Dose 20 MG; Start 01/19/17 at 02:30 Mupirocin (Bactroban) 1 applic BID TOP Last administered on 01/29/17 09:09; Admin Dose 1 APPLIC; Start 01/20/17 at 11:00 Tramadol HCl (Ultram) 50 mg Q6H PRN PO PAIN Last administered on 01/30/17 08: 55; Admin Dose 50 MG; Start 01/20/17 at 16:00 Metoprolol Tartrate (Lopressor) 12.5 mg BID PO Last administered on 01/29/17 08:46; Admin Dose 12.5 MG; Start 01/21/17 at 13:00 Diphenhydramine HCl (Benadryl) 25 mg Q12H PRN PO ITCHING Last administered on 11:48; Admin Dose 25 MG; Start 01/22/17 at 03:30 Venlafaxine HCl (Effexor) 75 mg BID PO Last administered on 01/30/17 08:55; Admin Dose 75 MG; Start 01/23/17 at 21:00 Docusate Sodium (Colace) 100 mg Q12 PO Last administered on 01/30/17 08:55; Admin Dose 100 MG; Start 01/23/17 at 21:00 IV Flush (NS 10 ml) 10 ml PRN PRN IV IV PROTOCOL Last administered on 09:05; Admin Dose 10 ML; Start 01/24/17 at 12:30 Levofloxacin (Levaquin) 500 mg DAILY@06 PO Last administered on 01/30/17 05:50 ; Admin Dose 500 MG; Start 01/27/17 at 15:00 Clopidogrel Bisulfate (plaVIX) 75 mg DAILY PO Last administered on 01/30/17 08 :55; Admin Dose 75 MG; Start 01/29/17 at 09:00 Escitalopram Oxalate (Lexapro) 20 mg DAILY PO ; Start 01/31/17 at 09:00; Status TRINY DEXTER January 30, 2017 14:56
[2017-01-30 20:15] VITALS: BP 107/79; RESP 18
[2017-01-30] MEDS: ATORVASTATIN 40 MG TAB PO SCH (21:53)
[2017-01-31] MEDS: ACETAMINOPHEN 325 MG TAB PO PRN (03:29)
[2017-01-31] MEDS: LEVOFLOXACIN 500 MG TAB PO SCH (05:17)
[2017-01-31 07:30] VITALS: BP 97/72; RESP 18
[2017-01-31] MEDS ORDERED: ESCITALOPRAM 10 MG TAB PO SCH (09:00)
[2017-01-31] MEDS: METOPROLOL 25 MG TAB PO SCH ×2 (09:00→20:03)
[2017-01-31] MEDS: FAMOTIDINE 20 MG TAB PO SCH ×2 (09:56→20:02)
[2017-01-31] MEDS: VENLAFAXINE 75 MG TABLET PO SCH ×2 (09:56→20:02)
[2017-01-31] MEDS: CLOPIDOGREL 75 MG TAB PO SCH (09:56)
[2017-01-31] MEDS: DOCUSATE SODIUM 100 MG CAP PO SCH ×2 (09:56→20:02)
[2017-01-31] MEDS: LEVETIRACETAM 500 MG TAB PO SCH ×2 (09:56→20:02)
[2017-01-31] MEDS: MUPIROCIN 2% 22 GM OINT TOP SCH ×2 (13:42→20:04)
--- NOTE | 2017-01-31 14:56 | PN ---
Date/Time of Note Date/Time of Note DATE: 01/31/17 TIME: 14:49 Assessment/Plan VTE Prophylaxis VTE Prophylaxis Intervention: SCD's Lines/Catheters IV Catheter Type (from Nrsg): PICC Line Central line still needed: Yes Urinary Cath still in place: Yes Reason Cath still needed: other (indicate) Assessment/Plan Assessment/Plan 1. Obstructive calculus in right renal pelvis resulting in mild to moderate right hydronephrosis with probable infection. Again, s/p lithotripsy and cystoscopy performed, JJ stent in place 2. Multiple renal cysts without masses on ultrasound. 3. 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 Chronic liver disease with mild hyperbilirubinemia. 5. Coronary artery disease, status post recent non-ST elevation myocardial infarction and percutaneous coronary intervention in 08/2016. 6. Chronic atrial fibrillation, rate controlled - plavix 7. Chronic seizure disorder, controlled. 8. Congestive heart failure chronic, systolic, LVEF 25% 9. History of tobacco and illicit drug use. 10. History of sick sinus syndrome, status post pacemaker. 11. Methicillin-resistant Staphylococcus aureus nares on Bactroban. 12. Major depression, denies suicidal, on effexor and lexapro 13. Iron deficiency anemia. 14. Dispo: to SNF when bed available - f/u with CM Exam/Review of Systems Vital Signs Vitals Vital Signs Date Time Temp Pulse Resp B/P Pulse Ox O2 Delivery O2 Flow Rate FiO2 01/31/17 07:30 98.3 66 18 97/72 100 01/31/17 03:45 5.0 01/27/17 20:00 Nasal Cannula Intake and Output 01/30/17 01/30/17 01/31/17 15:00 23:00 07:00 Intake Total 1090 ml 450 ml Output Total 1550 ml 600 ml Balance -460 ml -150 ml Exam Constitutional: alert, oriented, well developed Head: atraumatic, normocephalic Eyes: EOMI, PERRL, nl conjunctiva, nl lids ENMT: nl external ears & nose, nl lips & teeth, nl nasal mucosa & septum Neck: non-tender, supple Respiratory: clear to auscultation, normal air movement, No congested cough, No crackles/rales, No diminished breath sounds, No intercostal retraction, No labored breathing, No other, No respirations, No tactile fremitus, No wheezing Cardiovascular: irregular rhythm Gastrointestinal: nl liver, spleen, non-tender, soft, No ascites, No bowel sounds, No distended, No firm, No hepatomegaly, No mass , No other, No rebound or guarding, No splenomegaly, No surgical scars, No tender Musculoskeletal: nl extremities to inspection Neurological: SHOE POLISHER II-XII intact, nl mental status, nl speech Skin: nl turgor Lymph: nl lymph nodes Results Result Diagram: 01/29/1750901/29/17509 Medications Medications Current Medications Atorvastatin Calcium (Lipitor) 40 mg HS PO Last administered on 01/30/17 21:53 ; Admin Dose 40 MG; Start 01/19/17 at 21:00 Levetiracetam (Keppra) 500 mg BID PO Last administered on 01/31/17 09:56; Admin Dose 500 MG; Start 01/19/17 at 02:00 Ondansetron HCl (Zofran Inj) 4 mg Q6H PRN IV NAUSEA AND/OR VOMITING Last administered on 01/30/17 22:05; Admin Dose 4 MG; Start 01/19/17 at 02:30 Acetaminophen (Tylenol Tab) 650 mg Q6H PRN PO PAIN LEVEL 1-3 OR FEVER Last administered on 01/31/17 03:29; Admin Dose 650 MG; Start 01/19/17 at 02:30 Morphine Sulfate (morphine) 2 mg Q4H PRN IV PAIN LEVEL 7-10 Last administered on 01/30/17 00:30; Admin Dose 2 MG; Start 01/19/17 at 02:30 Zolpidem Tartrate (Ambien) 5 mg QHS PRN PO INSOMNIA Last administered on 23:37; Admin Dose 5 MG; Start 01/19/17 at 02:30 Bisacodyl (Dulcolax) 5 mg DAILY PRN PO CONSTIPATION Last administered on 11:48; Admin Dose 5 MG; Start 01/19/17 at 02:30 Famotidine (Pepcid) 20 mg Q12 PO Last administered on 01/31/17 09:56; Admin Dose 20 MG; Start 01/19/17 at 02:30 Mupirocin (Bactroban) 1 applic BID TOP Last administered on 01/31/17 13:42; Admin Dose 1 APPLIC; Start 01/20/17 at 11:00 Tramadol HCl (Ultram) 50 mg Q6H PRN PO PAIN Last administered on 01/30/17 21: 57; Admin Dose 50 MG; Start 01/20/17 at 16:00 Metoprolol Tartrate (Lopressor) 12.5 mg BID PO Last administered on 01/30/17 21:54; Admin Dose 12.5 MG; Start 01/21/17 at 13:00 Diphenhydramine HCl (Benadryl) 25 mg Q12H PRN PO ITCHING Last administered on 21:57; Admin Dose 25 MG; Start 01/22/17 at 03:30 Venlafaxine HCl (Effexor) 75 mg BID PO Last administered on 01/31/17 09:56; Admin Dose 75 MG; Start 01/23/17 at 21:00 Docusate Sodium (Colace) 100 mg Q12 PO Last administered on 01/31/17 09:56; Admin Dose 100 MG; Start 01/23/17 at 21:00 IV Flush (NS 10 ml) 10 ml PRN PRN IV IV PROTOCOL Last administered on 09:05; Admin Dose 10 ML; Start 01/24/17 at 12:30 Levofloxacin (Levaquin) 500 mg DAILY@06 PO Last administered on 01/30/17 05:50 ; Admin Dose 500 MG; Start 01/27/17 at 15:00 Clopidogrel Bisulfate (plaVIX) 75 mg DAILY PO Last administered on 01/31/17 09 :56; Admin Dose 75 MG; Start 01/29/17 at 09:00 Escitalopram Oxalate (Lexapro) 20 mg DAILY PO Last administered on 01/31/17 09 :56; Admin Dose 20 MG; Start 01/31/17 at 09:00 ASHLEY MARROQUIN MD January 31, 2017 14:56
[2017-01-31] MEDS: morphine 2 MG INJ IV PRN (18:48)
[2017-01-31] MEDS: ATORVASTATIN 40 MG TAB PO SCH (20:02)
--- NOTE | 2017-02-01 13:51 | DS ---
Date/Time of Note Date/Time of Note DATE: 02/01/17 TIME: 13:43 Discharge Summary Admission/Discharge Info Admit Date/Time January 18, 2017 at 21:52 Discharge Date/Time January 31, 2017 at 21:45 Final Diagnosis 1. Obstructive calculus in right renal pelvis resulting in mild to moderate right hydronephrosis with probable infection. Again, s/p lithotripsy and cystoscopy performed, JJ stent in place, follow up with urology 2. Multiple renal cysts 3. 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 Chronic liver disease with mild hyperbilirubinemia. 5. Coronary artery disease, status post recent non-ST elevation myocardial infarction and percutaneous coronary intervention in 08/2016. 6. Chronic atrial fibrillation, rate controlled - plavix 7. Chronic seizure disorder, controlled. 8. Congestive heart failure chronic, systolic, LVEF 25%, stable, follow up with cardiology 9. History of tobacco and illicit drug use. 10. History of sick sinus syndrome, status post pacemaker. 11. Methicillin-resistant Staphylococcus aureus nares on Bactroban. 12. Major depression, denies suicidal, on effexor and lexapro 13. Iron deficiency anemia. Patient Condition: Stable Hx of Present Illness This is a 56-year-old male with left-sided hemiparesis secondary to his CVA 10 years prior to arrival who presents to the emergency department brought in by EMS from his sniff facility, [facility], with difficulty breathing that has progressively worsened over the past week. The patient indicates he was discharged from [facility] 1 week ago where he had been treated for pneumonia he is not currently on antibiotics. He indicates that he still has had a productive cough since discharge with whitish sputum. Indicates that prior to arrival he indicated he was feeling short of breath. He stated he has had multiple similar episodes over the past several weeks of shortness of breath which improved when he is placed on oxygen. Indicated there was no oxygen available at [facility] and therefore 911 was called for further evaluation. The patient states he has had no fevers no shaking or chills. He also indicated that at the onset of the shortness of breath he developed right-sided chest pain which radiated to the right flank region. Indicates the pain is a sharp shooting pain. He states he has never had any similar episodes in the past and denies any recent trauma. He denies any frequency urgency or dysuria. The patient has a pacemaker and currently is on Eliquis and Plavix for chronic atrial fibrillation however patient has not taken it for the past 3 days as apparently he was not getting them at the facility he is staying at .He denies any abdominal pain. He denies any hemoptysis hematemesis or melanotic stools. The patient states he is a DO NOT RESUSCITATE with comfort measures only. However patient is okay with possibly getting ureteral stent if necessary. Hospital Course CT scan revealed 1.4 x 0.8 x 1 cm obstructive calculus in the right renal pelvis resulting in mild to moderate right hydronephrosis. Patient got lithotripsy for stone and JJ stent placement. Patient relieved. Patient will follow up with urologist. Patient has chronic congestive heart failure with LVEF 25%. It is considered ischemic cardiomyopathy from CAD that he had stent in 2016. Patient has no shortness of breath on discharge, He will follow up with cardiology for cardiac follow up. He was also seen by a tele psychiatrist because of concerns of major depression. He was suggested to be started on Effexor medication as well. There was a 1:1 sitter placed for possible suicide ideation, although he was reassessed a few days later by the psychiatry team and was determined not to be in any kind of suicidal ideation state of mind and the 1:1 sitter was stopped and he was continued on the Effexor medicine. Home Meds Active Scripts Clopidogrel Bisulfate (Clopidogrel) 75 Mg Tablet, 75 MG PO DAILY, #30 TAB Prov:AVERY CAMPO MD 09/17/16 Atorvastatin* (Atorvastatin*) 40 Mg Tablet, 40 MG PO HS, #30 TAB Prov:AVERY CAMPO MD 09/17/16 Reported Medications Tramadol Hcl* (Ultram*) 50 Mg Tablet, 50 MG PO Q6H Y for PAIN, TAB 01/18/17 Metolazone* (Metolazone*) 2.5 Mg Tablet, 2.5 MG PO DAILY, TAB TAKE M.,W.,F. 01/18/17 Escitalopram Oxalate* (Escitalopram Oxalate*) 10 Mg Tablet, 10 MG PO DAILY, #30 TAB 01/18/17 Levetiracetam* (Levetiracetam*) 500 Mg Tablet, 500 MG PO BID, TAB 07/15/15 Follow-up Plan urology in one week PCP in one week cardiology in one week Psychiatry in one week Primary Care Provider Not On Staff Doctor ASHLEY MARROQUIN MD February 01, 2017 13:51
== END 2017-01-31 21:45 | DRG 690 ==
LOC: E/R 14:27 → PP2 21:52
PROVIDERS: ADMIT Family Medicine; ATTEND Family Medicine
PROC: 02HV33Z Insertion of Infusion Device into Superior Vena Cava, Percutaneous Approach (ICD-10-PCS; 2017-01-24)
PROC: B548ZZA Ultrasonography of Superior Vena Cava, Guidance (ICD-10-PCS; 2017-01-24)
PROC: 0T768DZ Dilation of Right Ureter with Intraluminal Device, Via Natural or Artificial Opening Endoscopic (ICD-10-PCS; 2017-01-25)
PROC: 0TF3XZZ Fragmentation in Right Kidney Pelvis, External Approach (ICD-10-PCS; principal; 2017-01-25 17:30)
PROC: 0TF3XZZ Fragmentation in Right Kidney Pelvis, External Approach (ICD-10-PCS; 2017-01-26)
DX: N13.6 Pyonephrosis (principal); E87.2 Acidosis; I50.22 Chronic systolic (congestive) heart failure; G40.909 Epilepsy, unspecified, not intractable, without status epilepticus; I69.954 Hemiplegia and hemiparesis following unspecified cerebrovascular disease affecting left non-dominant side; I48.2 Chronic atrial fibrillation; F32.1 Major depressive disorder, single episode, moderate; I97.791 Other intraoperative cardiac functional disturbances during other surgery; N20.0 Calculus of kidney; I48.91 Unspecified atrial fibrillation; F41.9 Anxiety disorder, unspecified; N28.9 Disorder of kidney and ureter, unspecified; Z74.01 Bed confinement status; Z95.0 Presence of cardiac pacemaker; N28.1 Cyst of kidney, acquired; K76.9 Liver disease, unspecified; I25.10 Atherosclerotic heart disease of native coronary artery without angina pectoris; Z98.61 Coronary angioplasty status; I25.2 Old myocardial infarction; Z22.322 Carrier or suspected carrier of Methicillin resistant Staphylococcus aureus; I25.5 Ischemic cardiomyopathy; Z91.14 Patient's other noncompliance with medication regimen; Z66 Do not resuscitate; D50.9 Iron deficiency anemia, unspecified; I49.3 Ventricular premature depolarization; Y83.8 Other surgical procedures as the cause of abnormal reaction of the patient, or of later complication, without mention of misadventure at the time of the procedure; Y92.239 Unspecified place in hospital as the place of occurrence of the external cause; R09.02 Hypoxemia
CPT/HCPCS: 36430; 36569; 36600; 71010; 74000; 74176; 74430; 76775; 76937; 80048; 80053; 80069; 81001; 81003; 82150; 82270; 82803; 83540; 83605; 83690; 84484; 85025; 85049; 85610; 85670; 85730; 86850; 86900; 86901; 86920; 87040; 87081; 87086; 93005; 93306; 93971; 94664; J1940; C1769; C2617; J0330; J0744; J1100; J1650; J1956; J2270; J2370; J2405; J2710; J2765; J2916; J3010; J7030; J7040; P9059